=== PATIENT | female | born 1975 | race Hispanic/Latino ===

== ENCOUNTER 2020-04-05 22:41 | Emergency (ER) | payer SELFPAY ==
--- NOTE | 2020-04-05 23:02 | ER ---
Nurse's Notes [facility] Name: Chelsie Zaragoza Age: 45 yrs Sex: Female : 1975 Arrival Date: 04/05/2020 Time: 22:43 Bed Waiting Private MD: Diagnosis: Presentation: 04/05 22:59 Chief complaint: Patient states: I was at a republican a few days ago, and the person who sg hosted the republican said they had a positive panda swab, now I havent been feeling well with N/V and fever and I want to get tested for panda but I want the results back today. Coronavirus screen: Proceed with normal triage. Ebola Screen: Patient negative for fever greater than or equal to 101.5 degrees Fahrenheit, and additional compatible Ebola Virus Disease symptoms Patient denies exposure to infectious person. Patient denies travel to an Ebola-affected area in the 21 days before illness onset. No symptoms or risks identified at this time. Initial Sepsis Screen: Does the patient meet any 2 criteria? No. Patient's initial sepsis screen is negative. Does the patient have a suspected source of infection? No. Patient's initial sepsis screen is negative. Onset of symptoms was April 05, 2020. Care prior to arrival: None. 22:59 Method Of Arrival: Ambulatory :59 Acuity: YANNA 4 sg Historical: - Allergies: 23:01 No Known Allergies; sg - PMHx: 23:01 None; sg - Immunization history:: Adult Immunizations not up to date. - Social history:: Smoking status: Patient denies any tobacco usage or history of. ED Course: :43 Patient arrived in ED. ds1 23:01 Triage completed. sg 23:01 Arm band placed on. sg Administered Medications: No medications were administered Outcome: 23:02 Patient left the ED. sg Signatures: Pawel Phan RN RN Judy Morris ds1 Corrections: (The following items were deleted from the chart) 22:58 Chief complaint: sg sg
== END 2020-04-05 23:02 | disposition left against medical advice (07) ==
LOC: ER 22:41
DX: R50.9 Fever, unspecified (principal); Z53.21 Procedure and treatment not carried out due to patient leaving prior to being seen by health care provider
CPT/HCPCS: 99281

== ENCOUNTER 2020-04-10 06:25 | Emergency (ER) | payer SELFPAY ==
--- OUTSIDE RECORDS SUMMARY | 2020-04-10 06:27 | XMS REPORT | Continuity of Care Document ---
:1975 Author Organization [facility] t Address [address] [place] [address] Care Team Providers Name Role Phone Ninfa Spivey Attending Clinician Problems This patient has no known problems. Allergies, Adverse Reactions, Alerts This patient has no known allergies or adverse reactions. Medications This patient has no known medications. Procedures This patient has no known procedures. Encounters Start End Encounter Admission Attending Care Care Encounter Source Date/Time Date/Time Type Type Clinicians Facility Department ID 2020-04-08 2020-04-08 Letter [facility] [id number] 00:00:00 00:00:00 (Out) Mariama Martinez [id number] [place] [id number] [place] [id number] 2020-04-05 2020-04-06 Emergency [facility] [id number] 23:30:47 02:43:00 Mariama Martinez [id number] [place] [id number] [place] [id number] Results This patient has no known results.
--- OUTSIDE RECORDS SUMMARY | 2020-04-10 06:28 | XMS REPORT | Summary of Care ---
:1975 Author Organization [facility] Address [address] [place] [address] Care Team Providers Name Role Phone Pcp, Patient Does Not Have A Primary Care Provider +1-000-00 0-0000 Reason for Referral Radiology Services (STAT) Status Reason Specialty Diagnoses / Referred By Referred To Procedures Contact Contact New Request Diagnostic Diagnoses Fever in adult SOB (shortness of breath) Vomiting in adult Mariama Madrigla Radiology Procedures XR CHEST 1 VW COVID XR CHEST 1 VW R, EMNP [address] [facility] [id number] [place] [address] Reason for Visit Reason Comments Vomiting exposed to someone with covi d Auth/Cert Status Reason Specialty Diagnoses / Referred By Referred To Procedures Contact Contact Emergency Medicine Ad[facility] Em ergency Dept [address] [place] [address] Fax: Encounter Details Date Type Department Care Team Description 04/05/2020 - Emergency ADC-Emergency Mariama Madrigal R, Fever in a dult (Primary Dx); 04/06/2020 Department EMNP SOB (shortness of breath); [address] [place] [address] Vomiting i n adult; Drive [id number] Exposure to [place]id-19 [place] [address] [place], [place] [phone] Allergies No Known Allergiesdocumented as of this encounter (statuses as of 04/06/2020) Medications Medication Sig Dispensed Refills Start Date End Date Status norgestimate-ethinyl Take 1 tablet by 1 Package 3 09/09/2018 Active estradiol mouth daily. 0.18/0.215/0.25 mg-25 mcg tablet ondansetron (ZOFRAN Take 1 tablet by 20 tablet 0 04/06/2020 Active ODT) 4 mg mouth every 8 disintegrating (eight) hours as tabletIndications: needed for Nausea Vomiting in adult and Vomiting (N/V). documented as of this encounter (statuses as of 04/06/2020) Active Problems Problem Noted Date Obesity (BMI 30.0-34.9) 08/26/2018 Irregular menstrual cycle 08/26/2018 History of diet-controlled diabetes 08/26/2018 documented as of this encounter (statuses as of 04/06/2020) Social History Tobacco Use Types Packs/Day Years Used Date Never Smoker Smokeless Tobacco: Never Used Alcohol Use Drinks/Week oz/Week Comments No Sex Assigned at Date Recorded Not on file Job Start Date Occupation Industry Not on file Not on file Not on file Travel History Travel Start Travel End No recent travel history available. COVID-19 Exposure Response Date Recorded In the last month, have you been in contact with Yes 04/05/2020 11:34 PM CDT someone who was confirmed or suspected to have Coronavirus / COVID-19? documented as of this encounter Last Filed Vital Signs Vital Sign Reading Time Taken Comments Blood Pressure 109/70 04/06/2020 2:00 AM CDT Pulse 95 04/06/2020 2:00 AM CDT Temperature 38.8 C (101.8 F) 04/06/2020 12:44 AM CDT Respiratory Rate 23 04/06/2020 2:00 AM CDT Oxygen Saturation 94% 04/06/2020 2:00 AM CDT Inhaled Oxygen Concentration - - Weight 81.6 kg (180 lb) 04/05/2020 11:35 PM CDT Height 165.1 cm (5' 5") 04/05/2020 11:35 PM CDT Body Mass Index 29.95 04/05/2020 11:35 PM CDT documented in this encounter Discharge Instructions Mariama Liu EMNP - 04/06/2020NO LIFE-THREATENING FINDINGS ON TODAY'S EXAM. SPECIAL INSTRUCTIONS: 1. May alternate tylenol and motrin for pain 2. Increase fluids 3. It is recommended that you subscribe to [employer] so that you get your covid test results. Expect 2-3 days 4. See attached information 5. Return for worsening shortness of breath, persistent vomiting despite nausea medicine or any other concerns FOLLOW-UP RECOMMENDATIONS: RECOMMEND FOLLOW-UP WITH A PRIMARY CARE PROVIDER OR SPECIALIST IN 2-5 DAYS, ESPECIALLY IF NO IMPROVEMENT IN SYMPTOMS. TO FOLLOW-UP WITHIN THE [facility], TRY THESE OPTIONS (CLINIC APPOINTMENTS AVAILABLE ON EGRE-OO-HAAQ BASIS): 1. SCHEDULE AN APPOINTMENT ONLINE AT WWW[facility] 2. OR CALL THE [facility]ESS [facility] AT OR 3. OR CALL YOUR [facility] PHYSICIAN'S OFFICE DIRECTLY IF YOU ARE ALREADY AN ESTABLISHED [facility] PATIENT. OR, YOU MAY FOLLOW-UP WITH A PROVIDER OF YOUR CHOICE, SUCH : 1. A PHYSICIAN OF YOUR CHOICE 2. [facility], . LOCATIONS IN [facility] 3. [facility], [address] [place] [address]; [phone] RETURN TO ER FOR WORSENING OF SYMPTOMS. AttachmentsThe following attachments cannot be sent through Care Everywhere. Coronavirus Disease 2019 (COVID-19) (Malaysian)Coronavirus Disease 2019 (COVID- 19): Prevention (Malaysian)Coronavirus Disease 2019: Caring for Yourself and Others (Malaysian)Febrile Illness, Uncertain Cause (Adult) (Malaysian)Shortness of Breath (Dyspnea) (Malaysian)Vomiting and Diarrhea,Self-Care for (Malaysian) Vomiting or Diarrhea (Adult), Diet for (Malaysian)Ondansetron tablets (Malaysian) documented in this encounter Plan of Treatment Name Type Priority Associated Diagnoses Date/Ti me BLOOD CULTURE SCREEN LAB STAT Fever in ad ult 04/05/2020 11:59 PM SOB (shortness of CDT breath) Vomiting in adult BLOOD CULTURE SCREEN LAB STAT Fever in ad ult 04/05/2020 11:59 PM SOB (shortness of CDT breath) Vomiting in adult CORONAVIRUS COVID-19 LAB STAT Fever in ad ult 04/06/2020 12:04 AM TESTING SOB (shortness of CDT breath) Vomiting in adult XR CHEST 1 VW COVID IMAGING STAT Fever in reji lt 04/06/2020 12:12 AM SOB (shortness of CDT breath) Vomiting in adult Name Type Priority Associated Diagnoses Order S chedule BLOOD CULTURE SCREEN LAB Routine Fever in ad ult ONCE for 1 Occurrences SOB (shortness of starting 0 04/06/2020 breath) until 04/06/2020 Vomiting in adult BLOOD CULTURE SCREEN LAB Routine Fever in ad ult ONCE for 1 Occurrences SOB (shortness of starting 0 04/06/2020 breath) until 04/06/2020 Vomiting in adult Lactic Acid Whole Blood LAB Routine Fever in adult STAT for 1 Occurrences SOB (shortness of starting 0 04/05/2020 breath) Vomiting in adult CORONAVIRUS COVID-19 LAB Routine Fever in ad ult ONCE for 1 Occurrences TESTING SOB (shortness of starting 0 04/06/2020 breath) until 04/06/2020 Vomiting in adult Health Maintenance Due Date Last Done Comments DTaP,Tdap,and Td Vaccines (1 - 1985 Tdap) Depression Screening 1986 Breast Cancer Screening 2014 (MAMMOGRAM) INFLUENZA VACCINE (Season Ended) 2020 PAP SMEAR 08/26/2021 08/26/2018 PNEUMOCOCCAL 0-64 YEARS COMBINED Aged Out No longer eligible based on SERIES patient's age to complete this topic documented as of this encounter Procedures Procedure Name Priority Date/Time Associated Comments Diagnosis POCT TEST MELLO 04/06/2020 12:55 Vomiting in adult Results for this AM CDT procedure are i n the results section. URINALYSIS STAT 04/06/2020 12:05 Fever in adult Results for this AM CDT SOB (shortness of procedure are in breath) the results Vomiting in adult section. CBC WITH DIFFERENTIAL STAT 04/05/2020 11:58 Fever in adult Results for this PM CDT SOB (shortness of procedure are in breath) the results Vomiting in adult section. N-TERMINAL PRO-BNP STAT 04/05/2020 11:58 Fever in reji lt Results for this PM CDT SOB (shortness of procedure are in breath) the results Vomiting in adult section. COMP. METABOLIC PANEL STAT 04/05/2020 11:58 Fever in adult Results for this (73650) PM CDT SOB (shortness of procedure are in breath) the results Vomiting in adult section. LIPASE STAT 04/05/2020 11:58 Fever in adult Results for this PM CDT SOB (shortness of procedure are in breath) the results Vomiting in adult section. LACTIC ACID WHOLE STAT 04/05/2020 11:57 Fever in adul t Results for this BLOOD PM CDT SOB (shortness of procedure are in breath) the results Vomiting in adult section. ASSIGNMENT OF Routine 04/05/2020 11:23 BENEFITS PM CDT NOTICE OF PRIVACY Routine 04/05/2020 11:23 PRACTICES PM CDT CONSENT/REFUSAL FOR Routine 04/05/2020 11:23 DIAGNOSIS AND PM CDT TREATMENT documented in this encounter Results POCT TEST (04/06/2020 12:55 AM CDT) Pathologist Sig nature POCT PREG Negative On board controls acceptable Present with C Line POCT PREG LOT # [id number] POCT PREG TEST DATE 07/10/2021 Specimen Urine - URINE, CLEAN CATCH URINALYSIS (04/06/2020 12:05 AM CDT) Pathologist Sig nature APPEARANCE Cloudy (A) Clear [facility] COLOR Benita (A) Yellow [facility] PH 7.0 4.8 - 8.0 [facility] SP GRAVITY 1.018 1.003 - 1.030 [facility] GLU U QUAL Normal Normal [facility] BLOOD Negative Negative [facility] KETONES Negative Negative [facility] PROTEIN Negative Negative [facility] UROBILIN 4.0 mg/dL (A) Normal [facility] BILIRUBIN Negative Negative [facility] NITRITE Negative Negative [facility] LEUK PATRICIA Negative Negative [facility] RBC/HPF 2 0 - 3 HPF [facility] WBC/HPF 2 0 - 5 HPF [facility] BACTERIA Many (A) Negative [facility] MUCOUS Slight (A) Negative LPF [facility] SQ EPITH 17 HPF [facility] Specimen Urine - URINE, CLEAN CATCH Performing Organization Address City/State/Zipcode Phone Number [facility] CLIA: [id number], [address] [place], [place] [address] N-TERMINAL PRO-BNP (04/05/2020 11:58 PM CDT) Pathologist Sig nature NT-proBNP 55 <=125 pg/mL [facility] Specimen Blood - ARM, LEFT Narrative Performed At Biotin has been reported to cause a negative [facility] bias, interpret results relative to patient's use of biotin. Performing Organization Address City/State/Zipcode Phone Number [facility] CLIA: [id number], [address] [place], [place] [address] LIPASE (04/05/2020 11:58 PM CDT) Pathologist Sig nature LIPASE 60 0 - 220 U/L [facility] Specimen Blood - ARM, LEFT Performing Organization Address [facility] Phone Number [facility] CLIA: [id number], [address] [place], [place] [address] COMP. METABOLIC PANEL ([id number]) (04/05/2020 11:58 PM CDT) Pathologist Sig [facility] NA 134 (L) 135 - 145 [facility] mmol/L [facility] K 4.1 3.5 - 5.0 [facility] mmol/L [facility] CL 101 98 - 108 mmol/L [facility] CO2 TOTAL 24 23 - 31 mmol/L [facility] AGAP 9 2 - 16 [facility] BUN 8 7 - 23 mg/dL [facility] GLUCOSE 245 (H) 70 - 110 mg/dL [facility] CREATININE 0.66 0.50 - 1.04 [facility] mg/dL [facility] TOTAL BILI 0.9 0.1 - 1.1 mg/dL [facility] CALCIUM 9.4 8.6 - 10.6 [facility] mg/dL [facility] T PROTEIN 8.3 (H) 6.3 - 8.2 g/dL [facility] ALBUMIN 4.5 3.5 - 5.0 g/dL [facility] ALK PHOS 115 34 - 122 U/L [facility] ALTv 31 5 - 35 U/L [facility] AST(SGOT) 30 13 - 40 U/L [facility] eGFR Calculation 96.4 mL/min/1.73m2 [facility] ([facility] LAB[facility] Venezuelan) eGFR Calculation 116.9 mL/min/1.73m2 [facility] () [facility] Specimen Blood - ARM, LEFT Narrative Performed At Association of Glomerular Filtration Rate (GFR) [facility] and Staging of Kidney Disease* + + +- + | GFR (mL/min/1.73 m2) | With Kidney Damage | Without Kidney Damage + + +- + | >90 | Stage one | Normal + + +- + | 60-89 | Stage two | Decreased GFR + + +- + | 30-59 | Stage three | Stage three + + +- + | 15-29 | Stage four | Stage four + + +- + | <15 (or dialysis) | Stage five | Stage five + + +- + *Each stage assumes the associated GFR level has been in effect for at least three months. Stages 1 to 5, with or without kidney disease, indicate chronic kidney disease. Notes: Determination of stages one and two (with eGFR >59mL/min/1.73 m2) requires estimation of kidney damage for at least three months as defined by structural or functional abnormalities of the kidney, manifested by either: Pathological abnormalities or Markers of kidney damage (including abnormalities in the composition of the blood or urine or abnormalities in imaging tests). Performing Organization Address City/State/Zipcode Phone Number [facility] CLIA: [id number], [address] [place] [address] CBC WITH DIFFERENTIAL (04/05/2020 11:58 PM CDT) [facility] nature WBC 6.08 4.30 - 11.10 [facility] 10*3/L [facility] RBC 4.54 3.93 - 5.25 [facility] 10*6/L [facility] HGB 13.0 11.6 - 15.0 [facility] g/dL [facility] HCT 38.4 35.7 - 45.2 % [facility] MCV 84.6 80.6 - 95.5 fL [facility] MCH 28.6 25.9 - 32.8 pg [facility] MCHC 33.9 31.6 - 35.1 [facility] g/dL [facility] RDW-SD 39.8 39.0 - 49.9 fL [facility] RDW-CV 12.8 12.0 - 15.5 % [facility] PLT 192 166 - 358 [facility] 10*3/L [facility] MPV 11.8 9.5 - 12.9 fL [facility] NRBC/100 WBC 0.0 0.0 - 10.0 /100 [facility] WBCs [facility] NRBC x10^3 <0.01 10*3/L [facility] GRAN MAT (NEUT) % 81.5 % [facility] IMM GRAN % 0.80 % [facility] LYMPH % 7.7 % [facility] MONO % 7.2 % [facility] EOS % 2.3 % [facility] BASO % 0.5 % [facility] GRAN MAT x10^3(ANC) 4.95 1.88 - 7.09 [facility] 10*3/uL HOSPITAL LABORATORY IMM GRAN x10^3 0.05 0.00 - 0.06 [facility] 10*3/uL HOSPITAL LABORATORY LYMPH x10^3 0.47 (L) 1.32 - 3.29 [facility] 10*3/uL HOSPITAL LABORATORY MONO x10^3 0.44 0.33 - 0.92 [facility] 10*3/uL HOSPITAL LABORATORY EOS x10^3 0.14 0.03 - 0.39 [facility] 10*3/uL HOSPITAL LABORATORY BASO x10^3 0.03 0.01 - 0.07 [facility] 10*3/uL [facility] Specimen Blood - ARM, LEFT Performing Organization Address [facility]/Zipcode Phone Number [facility] CLIA: [id number], [address] [place] [address] Lactic Acid Whole Blood (04/05/2020 11:57 PM CDT) [facility] LACTIC ACID 1.78 0.30 - 2.60 mmol/L [facility] Specimen Blood - ARM, LEFT Performing Organization Address [facility]/Zipcode Phone Number [facility] CLIA: [id number], [address] [place] [address] documented in this encounter Visit Diagnoses Diagnosis Fever in adult - Primary SOB (shortness of breath) Shortness of breath Vomiting in adult Vomiting alone Exposure to Covid-19 Virus documented in this encounter Administered Medications Medication Order MAR Action Action Date Dose Rate Site ibuprofen (IBU) tablet 600 mg Given 04/05/2020 11:44 PM CDT 600 mg 600 mg, Oral, ONCE, 1 dose, 04/06/20 at 0045, MELLO NaCl 0.9% (NS) bolus infusion New Bag 04/06/2020 12:00 AM CDT 1,000 mL 999 mL/hr 1,000 mL at 999 mL/hr, 1,000 mL, IV Infusion, ONCE, 1 dose, 04/06/20 at 0000, MELLO NaCl 0.9% (NS) bolus infusion New Bag 04/06/2020 1:15 AM CDT 1,000 mL 999 mL/hr 1,000 mL at 999 mL/hr, 1,000 mL, IV Infusion, ONCE, 1 dose, 04/06/20 at 0100, MELLO ondansetron (ZOFRAN (PF)) injection 4 mg Given 04/06/2020 1:15 AM CDT 4 mg 4 mg, Slow IV Push, ONCE, 1 dose, 04/06/20 at 0200, MELLO documented in this encounter
--- OUTSIDE RECORDS SUMMARY | 2020-04-10 06:28 | XMS REPORT | Summary of Care ---
:1975 Author Organization [facility] Address [address] [place] [address] Care Team Providers Name Role Phone Pcp, Patient Does Not Have A Primary Care Provider +1-000-00 0-0000 Encounter Details Date Type Department Care Team Description 04/08/2020 Letter (Out) ADC-Emergency Depart ment Mariama Madrigal EMNP [address] [facility] [facility] [id number] [place] [address] [place] [address] [phone] Allergies No Known Allergiesdocumented as of this encounter (statuses as of 04/08/2020) Medications Medication Sig Dispensed Refills Start Date [...] as of this encounter (statuses as of 04/08/2020) Active Problems Problem Noted Date Obesity (BMI 30.0-34.9) 08/26/2018 Irregular menstrual cycle 08/26/2018 History of diet-controlled diabetes 08/26/2018 documented as of this encounter (statuses as of 04/08/2020) Social History Tobacco Use Types Packs/Day Years [...] of this encounter Last Filed Vital Signs Not on filedocumented in this encounter Plan of Treatment Health Maintenance Due Date Last Done Comments DTaP,Tdap,and Td Vaccines (1 - 1985 Tdap) Depression Screening 1986 Breast Cancer Screening 2014 (MAMMOGRAM) INFLUENZA VACCINE (Season Ended) 2020 PAP SMEAR 08/26/2021 08/26/2018 PNEUMOCOCCAL 0-64 YEARS COMBINED Aged Out No longer eligible based on SERIES patient's age to complete this topic documented as of this encounter Results Not on filedocumented in this encounter Insurance Payer Benefit Plan Subscriber ID Effective Phone Address Typ e / Group Dates [employer] [place] [id number] xxxxxxxxx 2016-Prese [phone] Medicaid WOMEN [address] [place] [address] [facility] [place] xxxxxxxxx 2018-Pres [phone] [address] [place] X Medicaid WOMEN WOMEN [address] [place] [address] documented as of this encounter
[2020-04-10] MEDS ORDERED: PROMETHAZINE INJ 25 MG/ML AMP ONE ×2 (07:19→10:37)
[2020-04-10] MEDS ORDERED: NA CHLORIDE 0.9% 1,000 ML ONE (07:20)
[2020-04-10] MEDS ORDERED: FAMOTIDINE 20 MG/2 ML VIAL IV ONE (07:20)
[2020-04-10 07:50] LABS: Absolute Lymphocytes (CBC) 0.7 K/uL (0.7-4.9); Basophils % 0.6 % (0-1.3); Hematocrit 41.8 % (36.0-45.0); Lymphocytes % 24.2 % (15.3-44.8); MPV 9.9 fL (7.6-11.3); RBC Red Blood Cell Count 4.96 M/uL (3.86-4.86)
[2020-04-10 08:03] LABS: Albumin 3.8 g/dL (3.4-5.0); Bilirubin Direct 0.2 mg/dL (0-0.2); Bilirubin Total 0.6 mg/dL (0.2-1.0); Potassium 3.7 mmol/L (3.5-5.1); Protein, Total 8.5 g/dL (6.4-8.2)
--- NOTE | 2020-04-10 08:23 | RAD REPORT ---
EXAM DESCRIPTION: RAD - Chest Single View - 04/10/2020 7:53 am CLINICAL HISTORY: Cough;Fever Chest pain. COMPARISON: Abdomen Pelvis W Contrast dated 04/10/2020 FINDINGS: Portable technique limits examination quality. Small opacity seen in left lung base suspicious for pneumonia. The lungs are otherwise clear. The hea rt is normal in size. No displaced fractures. IMPRESSION: Developing left base pneumonia suspected.
[2020-04-10] MEDS ORDERED: ACETAMINOPHEN 325 MG TABLET ONE (08:26)
[2020-04-10] MEDS ORDERED: ACETAMINOPHEN 500 MG TAB ONE (08:28)
--- NOTE | 2020-04-10 08:31 | RAD REPORT ---
EXAM DESCRIPTION: CTAbdomen Pelvis W Contrast - 04/10/2020 8:01 am CLINICAL HISTORY: Abdominal pain. Abd pain;Nausea / vomiting COMPARISON: No comparisons TECHNIQUE: Biphasic CT imaging of the abdomen and pelvis was performed with 100 ml non-ionic IV cont rast. All CT scans are performed using dose optimization technique as appropriate and may include automated exposure control or mA/KV adjustment according to patient size. FINDINGS: Opacities present in the posterior left lung base compatible with pneumonia. The liver, spleen, pancreas, adrenal glands and kidneys are within normal limits. Cholecystectomy cli ps. No bowel obstruction, free air, free fluid or abscess. The appendix is normal. No evidence of signi ficant lymphadenopathy. No suspicious bony findings. IMPRESSION: Posterior left lung base pneumonia.
[2020-04-10 08:39] LABS: Urine Blood NEGATIVE (NEG); Urine Glucose NEGATIVE (NEG); Urine Protein NEGATIVE (NEG); Urine Specific Gravity <1.005 (1.005-1.030); Urine pH 5.5 (5.0-7.0)
[2020-04-10] MEDS ORDERED: CEFTRIAXONE/SWI 1gm 1 GM/10 ML SYR ONE (09:03)
[2020-04-10] MEDS ORDERED: AZITHROMYCIN IV 500 MG in NA CHLORIDE 0.9% 250 ML IVPB ONE (09:15)
--- NOTE | 2020-04-10 09:49 | EDPHYS ---
Physician Documentation [facility] Name: Chelsie Zaragoza Age: 45 yrs Sex: Female : 1975 Arrival Date: 04/10/2020 Time: 06:26 Bed 6 Private MD: ED Physician Jorge Kim HPI: 04/10 06:59 This 45 yrs old Female presents to ER via Ambulatory with complaints of cp Nausea/Vomiting, Fever. 06:59 The patient presents to the emergency department with nausea, that is moderate, cp vomiting, that is intermittent, abdominal pain, of the abdomen diffusely. Onset: The symptoms/episode began/occurred 5 day(s) ago. Possible causes: unknown. 06:59 Associated signs and symptoms: Pertinent positives: abdominal pain, anorexia, fever, cp nausea, vomiting, Pertinent negatives: constipation, diarrhea, GI bleeding. Severity of symptoms: in the emergency department the symptoms are unchanged despite home interventions. 07:00 Patient reports being seen at [facility] 5 days ago and being tested for COVID-19. Results of cp COVID testing returned negative 2 days ago. 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 - Social history:: Smoking status: Patient denies any tobacco usage or history of. ROS: 07:05 Eyes: Negative for injury, pain, redness, and discharge. cp 07:05 Constitutional: Positive for fever, poor PO intake. 07:05 ENT: Negative for ear pain, sore throat, difficulty swallowing, difficulty handling secretions. 07:05 Cardiovascular: Negative for chest pain, palpitations. 07:05 Respiratory: Positive for cough, Negative for shortness of breath, wheezing. 07:05 Abdomen/GI: Positive for abdominal pain, nausea and vomiting, anorexia, Negative for diarrhea, constipation. 07:05 Back: Positive for pain at rest, pain with movement. 07:05 : Negative for urinary symptoms. 07:05 Skin: Negative for rash. 07:05 Neuro: Negative for altered mental status, headache, weakness. 07:05 All other systems are negative. Exam: 07:12 Constitutional: The patient appears in no acute distress, alert, awake, cp non-diaphoretic, non-toxic, well developed, well nourished, febrile. 07:12 Head/Face: Normocephalic, atraumatic. cp 07:12 Eyes: Periorbital structures: appear normal, Conjunctiva: normal, no exudate, no injection, Sclera: no appreciated abnormality, Lids and lashes: appear normal, bilaterally. 07:12 ENT: External ear(s): are unremarkable, Ear canal(s): are normal, clear, TM's: bulging, is not appreciated, bilaterally, dullness, bilaterally, erythema, is not appreciated, bilaterally, Nose: is normal, Mouth: Lips: moist, Oral mucosa: moist, Posterior pharynx: Airway: no evidence of obstruction, patent, Tonsils: no enlargement, no exudate, swelling, is not appreciated, erythema, that is mild, exudate, is not appreciated. 07:12 Neck: ROM/movement: is normal, is supple, without pain, no range of motions limitations, no meningismus. 07:12 Chest/axilla: Inspection: normal, Palpation: is normal, no crepitus, no tenderness. 07:12 Cardiovascular: Rate: tachycardic, Rhythm: regular, Edema: is not appreciated, JVD: is not appreciated. 07:12 Respiratory: the patient does not display signs of respiratory distress, Respirations: normal, no use of accessory muscles, no retractions, no splinting, no tachypnea, labored breathing, is not present, Breath sounds: decreased breath sounds, are not appreciated, stridor, is not appreciated, wheezing: is not appreciated. 07:12 Abdomen/GI: Inspection: abdomen appears normal, Bowel sounds: active, all quadrants, Palpation: soft, in all quadrants, mild abdominal tenderness, in the right upper quadrant and right lower quadrant, rebound tenderness, is not appreciated, voluntary guarding, is elicited in the right upper quadrant and right lower quadrant. 07:12 Back: ROM is normal, CVA tenderness, that is mild, is noted bilaterally. 07:12 Skin: no rash present. 07:12 Neuro: Orientation: to person, place \T\ time. Mentation: is normal, Motor: moves all fours, strength is normal. Vital Signs: 06:42 BP 129 / 105; Pulse 116; Resp 18; Temp 102(O); Pulse Ox 97% on R/A; Weight 81.65 kg lp1 (R); Height 5 ft. 5 in. (165.10 cm); 07:38 BP 122 / 89; Pulse 111; Resp 19 S; Pulse Ox 94% on R/A; jl7 08:00 BP 124 / 81; Pulse 105; Resp 17 S; Pulse Ox 98% on R/A; jl7 08:31 BP 102 / 67; Pulse 104; Resp 15 S; Pulse Ox 97% on R/A; jl7 09:40 BP 108 / 82; Pulse 101; Resp 19 S; Temp 100.2(O); Pulse Ox 93% on R/A; jl7 10:38 BP 107 / 77; Pulse 95; Resp 16; Pulse Ox 95% ; jl7 06:42 Body Mass Index 29.95 (81.65 kg, 165.10 cm) lp1 MDM: 06:46 Patient medically screened. cp 07:10 Differential diagnosis: Nonspecific abd pain, gastritis, cholecystitis, appendicitis, cp diverticulitis, viral gastroenteritis, gastroenteritis, dehydration, influenza, pneumonia, sepsis. 09:47 Data reviewed: vital signs, nurses notes, lab test result(s), radiologic studies, CT cp scan, plain films, and as a result, I will discharge patient. 09:47 Counseling: I had a detailed discussion with the patient and/or guardian regarding: the cp historical points, exam findings, and any diagnostic results supporting the discharge/admit diagnosis, lab results, radiology results, the need for outpatient follow up, a family practitioner, to return to the emergency department if symptoms worsen or persist or if there are any questions or concerns that arise at home. Response to treatment: the patient's symptoms have markedly improved after treatment, patient is well hydrated. and as a result, I will discharge patient. ED course: VSS. Nausea improved and fever and vomiting resolved. Patient observed tolerating po fluids. Will discharge to home for continued monitoring. 04/10 06:58 Order name: Influenza Screen (a \T\ B) cp 04/10 06:58 Order name: Strep; Complete Time: 08:48 cp 04/10 06:58 Order name: Urine Microscopic Only cp 04/10 06:58 Order name: Basic Metabolic Panel; Complete Time: 08:18 cp 04/10 08:49 Interpretation: Normal except: GLUC 221; GFR 67. cp 04/10 06:58 Order name: CBC with Diff; Complete Time: 08:02 cp 04/10 08:02 Interpretation: Normal except: WBC 3.0; RBC 4.96. cp 04/10 06:58 Order name: Hepatic Function; Complete Time: 08:18 cp 04/10 09:17 Interpretation: Normal except: AST 42; TP 8.5; GLOB 4.7; A/G 0.8. cp 04/10 06:58 Order name: Lipase; Complete Time: 08:18 cp 04/10 06:58 Order name: Lactate; Complete Time: 08:18 cp 04/10 06:58 Order name: Procalcitonin; Complete Time: 08:48 cp 04/10 06:58 Order name: Blood Culture Adult (2) cp 04/10 07:52 Order name: CREATININE WHOLE BLOOD; Complete Time: 08:02 EDMS 04/10 08:29 Order name: Urine Dipstick--Ancillary (enter results); Complete Time: 08:48 em1 04/10 08:49 Interpretation: Normal except: U NIT POSITIVE. cp 04/10 08:49 Order name: Throat Culture EDIN 04/10 09:54 Order name: Urine Culture EDIN 04/10 06:58 Order name: Urine Dipstick-Ancillary (obtain specimen); Complete Time: 08:29 cp 04/10 06:58 Order name: Urine Test (obtain specimen); Complete Time: 08:28 cp 04/10 06:58 Order name: IV Saline Lock; Complete Time: 07:50 cp 04/10 06:58 Order name: Labs collected and sent; Complete Time: 07:50 cp 04/10 06:58 Order name: XRAY Chest (1 view); Complete Time: 08:48 cp 04/10 06:58 Order name: CT Abd/Pelvis - IV Contrast Only; Complete Time: 08:48 cp 04/10 08:51 Order name: PO challenge; Complete Time: 08:51 cp Administered Medications: 07:45 Drug: NS 0.9% 1000 ml Route: IV; Rate: 1 bolus; Site: left antecubital; jl7 09:00 Follow up: Response: No adverse reaction; IV Status: Completed infusion; IV Intake: jl7 1000ml 07:45 Drug: Phenergan 12.5 mg Route: IVP; Site: left antecubital; jl7 08:00 Follow up: Response: No adverse reaction; Nausea is decreased jl7 07:50 Drug: Pepcid 20 mg Route: IVP; Site: left antecubital; jl7 08:29 Follow up: Response: No adverse reaction jl7 08:29 Drug: Tylenol 1000 mg Route: PO; jl7 09:29 Follow up: Response: No adverse reaction; Temperature is decreased jl7 08:51 Not Given (wrong pharmacy order): Rocephin - (cefTRIAXone) 1 grams IVPB once over 30 jl7 mins; (mix in 50 mL NS) 09:15 Drug: Rocephin 1 grams Route: IV; Rate: calculated rate; Site: left antecubital; jl7 09:18 Follow up: Response: No adverse reaction; IV Status: Completed infusion jl7 09:20 Drug: Zithromax 500 mg Route: IVPB; Infused Over: 1 hrs; Site: left antecubital; jl7 10:20 Follow up: Response: No adverse reaction; IV Status: Completed infusion jl7 10:27 Drug: Phenergan 12.5 mg Route: IVP; Site: left antecubital; jl7 10:41 Follow up: Response: No adverse reaction; Medication administered at discharge. jl7 Disposition: 15:53 Co-signature as Attending Physician, Jorge Kim MD I agree with the assessment and kdr plan of care. Disposition: 04/10/20 09:48 Discharged to Home. Impression: Pneumonia due to other specified bacteria, Urinary tract infection, site not specified. - Condition is Stable. - Discharge Instructions: Community-Acquired Pneumonia, Adult, Urinary Tract Infection, Adult. - Prescriptions for Augmentin 875- 125 mg Oral Tablet - take 1 tablet by ORAL route every 12 hours for 10 days; 20 tablet. Zithromax Z- Ramírez 250 mg Oral Tablet - take 1 tablet by ORAL route as directed for 5 days Day 1 - take two (2) tablets one time. Day 2, 3, 4 , 5 take one (1) tablet once daily.; 6 tablet. promethazine 25 mg Oral Tablet - take 1 tablet by ORAL route every 6 hours As needed; 20 tablet. - Medication Reconciliation Form, Thank You Letter, Antibiotic Education, Prescription Opioid Use, Work release form form. - Follow up: Private Physician; When: 2 - 3 days; Reason: Recheck today's complaints. - Problem is new. - Symptoms have improved. Signatures: Dispatcher [employer] EDMS Jorge Kim MD MD kdr Pena, Laura RN RN lp1 Adrian Piper PA PA cp Leal, Jahala RN RN jl7 Corrections: (The following items were deleted from the chart) 10:41 09:48 04/10/2020 09:48 Discharged to Home. Impression: Pneumonia due to other specified jl7 bacteria; Urinary tract infection, site not specified. Condition is Stable. Forms are Medication Reconciliation Form, Thank You Letter, Antibiotic Education, Prescription Opioid Use. Follow up: Private Physician; When: 2 - 3 days; Reason: Recheck today's complaints. Problem is new. Symptoms have improved. cp
--- NOTE | 2020-04-10 09:49 | ER ---
Nurse's Notes [facility] Name: Chelsie Zaragoza Age: 45 yrs Sex: Female : 1975 Arrival Date: 04/10/2020 Time: 06:26 Bed 6 Private MD: Diagnosis: Pneumonia due to other specified bacteria;Urinary tract infection, site not specified Presentation: 04/10 06:42 Chief complaint: Patient states: Nausea, vomiting, fever that began Wednesday; states seen lp1 at [facility], tested COVID negative; No nausea relief with Zofran prescribed; Last taken Tylenol 500 mg PO x2 at 0400 for fever. Coronavirus screen: Patient denies a cough. Patient denies shortness of breath or difficulty breathing. Patient reports a measured and/or subjective temperature greater than 100.4F. Patient denies travel on a cruise ship or to a country the [facility] currently lists as an affected area. Patient reports contact with known and/or suspected case of COVID-19. Prior COVID test collected on: COVID tested Wednesday04/05/20 results are located within the EHR/EMR. Ebola Screen: No symptoms or risks identified at this time. Initial Sepsis Screen: Does the patient meet any 2 criteria? Temp <36.0*C (96.8*F)) or > 38.3*C (100.9*F). HR > 90 bpm. Yes Does the patient have a suspected source of infection? Yes: Other: unknown source. Risk Assessment: Do you want to hurt yourself or someone else? Patient reports no desire to harm self or others. Onset of symptoms was April 05, 2020. 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 - Social history:: Smoking status: Patient denies any tobacco usage or history of. Screenin:49 Abuse screen: Denies threats or abuse. Denies injuries from another. Nutritional lp1 screening: No deficits noted. Tuberculosis screening: No symptoms or risk factors identified. 07:51 Fall Risk IV access (20 points). Total Brand Fall Scale indicates No Risk (0-24 pts). jl7 Assessment: 07:30 General: Appears in no apparent distress. uncomfortable, ill, Behavior is calm, jl7 cooperative, appropriate for age. Pain: Complains of pain in abdomen diffusely. Neuro: Level of Consciousness is awake, alert, obeys commands, Oriented to person, place, time, situation. Cardiovascular: Patient's skin is warm and dry. Respiratory: Reports shortness of breath at rest cough that is non-productive, Airway is patent Respiratory effort is even, unlabored, Respiratory pattern is regular, symmetrical. GI: Abdomen is non-distended, Reports nausea, vomiting. : No signs and/or symptoms were reported regarding the genitourinary system. Derm: Skin is pink, warm \T\ dry. 07:54 Reassessment: pt actively vomiting, unable to provide urine sample, unable to obtain jl7 strep swab at this time. Administered medications as ordered, pt transported to CT via stretcher, will obtain the rest of labs on return. 08:00 Reassessment: Patient appears in no apparent distress at this time. Patient is alert, jl7 oriented x 3, equal unlabored respirations, skin warm/dry/pink. reports decreased nausea at this time. 09:40 Reassessment: Pt laying in bed with eyes closed, respirations even and unlabored, no jl7 signs of distress noted at this time. 09:53 Reassessment: pt will be discharged once medications are done infusing. jl7 10:25 Reassessment: Pt c/o increased nausea, ERP notified, see MAR for orders. jl7 Vital Signs: 06:42 BP 129 / 105; Pulse 116; Resp 18; Temp 102(O); Pulse Ox 97% on R/A; Weight 81.65 kg lp1 (R); Height 5 ft. 5 in. (165.10 cm); 07:38 BP 122 / 89; Pulse 111; Resp 19 S; Pulse Ox 94% on R/A; jl7 08:00 BP 124 / 81; Pulse 105; Resp 17 S; Pulse Ox 98% on R/A; jl7 08:31 BP 102 / 67; Pulse 104; Resp 15 S; Pulse Ox 97% on R/A; jl7 09:40 BP 108 / 82; Pulse 101; Resp 19 S; Temp 100.2(O); Pulse Ox 93% on R/A; jl7 10:38 BP 107 / 77; Pulse 95; Resp 16; Pulse Ox 95% ; jl7 06:42 Body Mass Index 29.95 (81.65 kg, 165.10 cm) lp1 ED Course: 06:26 Patient arrived in ED. ds1 06:42 Adrian Piper PA is PHCP. cp 06:42 Tyson Powell MD is Attending Physician. cp 06:47 Triage completed. lp1 06:47 Arm band placed on. lp1 07:07 Henok Garces RN is Primary Nurse. jl7 07:40 Initial lab(s) drawn, by me, sent to lab. First set of blood cultures drawn by me. jl7 07:45 Inserted saline lock: 20 gauge in left antecubital area, using aseptic technique. Blood jl7 collected. 07:45 Second set of blood cultures drawn by me. jl7 07:51 Patient has correct armband on for positive identification. Placed in gown. Bed in low jl7 position. Call light in reach. Side rails up X 1. Pulse ox on. NIBP on. 07:53 XRAY Chest (1 view) In Process Unspecified. EDMS 08:01 CT Abd/Pelvis - IV Contrast Only In Process Unspecified. EDMS 08:31 Urine collected: clean catch specimen, clear, Strep swab sent to lab. jl7 09:07 Jorge Kim MD is Attending Physician. cp 10:38 No provider procedures requiring assistance completed. IV discontinued, intact, jl7 bleeding controlled, No redness/swelling at site. Pressure dressing applied. 10:41 Throat Culture Sent. jl7 Administered Medications: 07:45 Drug: NS 0.9% 1000 ml Route: IV; Rate: 1 bolus; Site: left antecubital; jl7 09:00 Follow up: Response: No adverse reaction; IV Status: Completed infusion; IV Intake: jl7 1000ml 07:45 Drug: Phenergan 12.5 mg Route: IVP; Site: left antecubital; jl7 08:00 Follow up: Response: No adverse reaction; Nausea is decreased jl7 07:50 Drug: Pepcid 20 mg Route: IVP; Site: left antecubital; jl7 08:29 Follow up: Response: No adverse reaction 7 08:29 Drug: Tylenol 1000 mg Route: PO; jl7 09:29 Follow up: Response: No adverse reaction; Temperature is decreased 7 08:51 Not Given (wrong pharmacy order): Rocephin - (cefTRIAXone) 1 grams IVPB once over 30 jl7 mins; (mix in 50 mL NS) 09:15 Drug: Rocephin 1 grams Route: IV; Rate: calculated rate; Site: left antecubital; jl7 09:18 Follow up: Response: No adverse reaction; IV Status: Completed infusion jl7 09:20 Drug: Zithromax 500 mg Route: IVPB; Infused Over: 1 hrs; Site: left antecubital; jl7 10:20 Follow up: Response: No adverse reaction; IV Status: Completed infusion jl7 10:27 Drug: Phenergan 12.5 mg Route: IVP; Site: left antecubital; jl7 10:41 Follow up: Response: No adverse reaction; Medication administered at discharge. 7 Intake: 09:00 IV: 1000ml; Total: 1000ml. 7 Outcome: 09:48 Discharge ordered by . cp 10:38 Discharged to home ambulatory. jl7 10:38 Condition: stable 10:38 Discharge instructions given to patient, Instructed on discharge instructions, follow up and referral plans. medication usage, Demonstrated understanding of instructions, follow-up care, medications, Prescriptions given X 3. 10:41 Patient left the ED. 7 Signatures: [facility] Judy Sweet ds1 Sandra Waller RN RN lp1 Adrain Piper PA PA Henok Myers RN RN jl7 Corrections: (The following items were deleted from the chart) 07:51 07:50 NS 0.9% 1000 ml IV at 1 bolus in left antecubital jl7 jl7
[2020-04-10 09:52] LABS: Urine Bacteria 20-50 /HPF (<20); Urine Culture Reflex Order REFLEXED; Urine RBC <5 /HPF (NONE SEEN)
[2020-04-10 11:01] VITALS: TEMP 100.2
[2020-04-10 11:02] VITALS: BP 107/77; O2SAT 95
== END 2020-04-10 10:41 | disposition home or self-care (01) ==
LOC: ER 06:25
DX: J15.8 Pneumonia due to other specified bacteria (principal); N39.0 Urinary tract infection, site not specified; E11.9 Type 2 diabetes mellitus without complications
CPT/HCPCS: 36415; 71045; 74177; 80048; 80076; 81003; 81015; 82565; 83605; 83690; 84145; 85025; 87040; 87070; 87077; 87081; 87086; 87088; 87186; 87804; 96361; 96365; 96375; 99284; J0456; J0696; J2550; J7030; Q9967

== ENCOUNTER 2020-04-13 02:03 | Emergency (ER) | payer SELFPAY ==
--- OUTSIDE RECORDS SUMMARY | 2020-04-13 02:05 | XMS REPORT | Continuity of Care Document ---
:1975 Author Organization [facility] t Address [address] [place] [address] Care Team Providers Name Role Phone Ninfa [...] Clinicians Facility Department ID 2020-04-08 2020-04-08 Letter [facility] [id number] 00:00:00 00:00:00 (Out) Mariama Martinez [id number] [place] [id number] [place] [id number] 2020-04-05 2020-04-06 Emergency [facility] [id number] 23:30:47 02:43:00 Mariama Martinez [id number] [place] [id number] [place] [id number] Results This patient has no known results.
[2020-04-13] MEDS ORDERED: NA CHLORIDE 0.9% 500 ML ONE (02:37)
[2020-04-13] MEDS ORDERED: NA CHLORIDE 0.9% 2,000 ML ONE (02:37)
[2020-04-13 02:44] LABS: Absolute Lymphocytes (CBC) 0.5 K/uL (0.7-4.9); Basophils % 0.5 % (0-1.3); Hematocrit 39.2 % (36.0-45.0); Lymphocytes % 17.3 % (15.3-44.8); MPV 10.1 fL (7.6-11.3); RBC Red Blood Cell Count 4.65 M/uL (3.86-4.86)
[2020-04-13 02:50] LABS: Protime INR 1.24
[2020-04-13 03:11] LABS: ALT/SGPT 45 U/L (12-78); AST/SGOT 42 U/L (15-37); Albumin 3.2 g/dL (3.4-5.0); Alkaline Phosphatase 82 U/L (45-117); BUN Blood Urea Nitrogen 11 mg/dL (7-18); Bicarbonate 24 mmol/L (21-32); Bilirubin Direct 0.2 mg/dL (0-0.2); Bilirubin Total 0.5 mg/dL (0.2-1.0); Ferritin 132.1 ng/mL (8-388); Glucose Level 276 mg/dL (74-106); Lipase 157 U/L (73-393); Potassium 3.4 mmol/L (3.5-5.1); Protein, Total 7.9 g/dL (6.4-8.2); Sodium Level 135 mmol/L (136-145); Troponin (Emerg Dept Use Only) < 0.02 ng/mL (0.0-0.045)
[2020-04-13] MEDS ORDERED: CEFTRIAXONE/SWI 1gm 1 GM/10 ML SYR ONE (03:51)
[2020-04-13] MEDS ORDERED: AZITHROMYCIN 250 MG TAB ONE (03:54)
[2020-04-13] MEDS ORDERED: ONDANSETRON 4 MG/2 ML VIAL ONE (03:59)
[2020-04-13 04:27] LABS: Arterial Blood Carboxyhemoglob 1.2 % (0-1.5); Blood Gas Oxyhemoglobin 92.2 % (94-97); Blood O2 Saturation 94.1 % (92-98.5)
[2020-04-13 05:24] LABS: Urine Blood TRACE (NEG); Urine Glucose 2+ (NEG); Urine Protein NEGATIVE (NEG); Urine Specific Gravity 1.015 (1.005-1.030); Urine pH 5.5 (5.0-7.0)
--- NOTE | 2020-04-13 05:26 | EDPHYS ---
Physician Documentation [facility] Name: Chelsie Zaragoza Age: 45 yrs Sex: Female : 1975 Arrival Date: 04/13/2020 Time: 02:14 Bed 6 Private MD: ED Physician Patrick Luna HPI: 04/13 03:54 This 45 yrs old Female presents to ER via EMS with complaints of Shortness Of tw4 Breath, Vomiting. 03:54 The patient has shortness of breath at rest. Onset: The symptoms/episode began/occurred tw4 today. Duration: The symptoms are continuous, and are unchanged since they started. The patient's shortness of breath has no apparent modifying factors. Associated signs and symptoms: Pertinent positives: nausea, vomiting. Severity of symptoms: At their worst the symptoms were moderate. The patient has not experienced similar symptoms in the past. 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 - Social history:: Smoking status: unknown Patient/guardian denies using alcohol, street drugs, tobacco products. ROS: 03:54 Constitutional: Negative for fever, chills, and weight loss, Eyes: Negative for injury, tw4 pain, redness, and discharge, Cardiovascular: Negative for chest pain, palpitations, and edema, Abdomen/GI: Negative for abdominal pain, nausea, vomiting, diarrhea, and constipation, Back: Negative for injury and pain, MS/Extremity: Negative for injury and deformity, Skin: Negative for injury, rash, and discoloration, Neuro: Negative for headache, weakness, numbness, tingling, and seizure. 03:54 Respiratory: Positive for shortness of breath, Negative for cough, dyspnea on exertion, orthopnea. Exam: 03:54 Constitutional: This is a well developed, well nourished patient who is awake, alert, tw4 and in no acute distress. Head/Face: Normocephalic, atraumatic. Chest/axilla: Normal chest wall appearance and motion. Nontender with no deformity. No lesions are appreciated. Cardiovascular: Regular rate and rhythm with a normal S1 and S2. No gallops, murmurs, or rubs. Normal PMI, no JVD. No pulse deficits. Respiratory: Lungs have equal breath sounds bilaterally, clear to auscultation and percussion. No rales, rhonchi or wheezes noted. No increased work of breathing, no retractions or nasal flaring. Abdomen/GI: Soft, non-tender, with normal bowel sounds. No distension or tympany. No guarding or rebound. No evidence of tenderness throughout. Back: No spinal tenderness. No costovertebral tenderness. Full range of motion. MS/ Extremity: Pulses equal, no cyanosis. Neurovascular intact. Full, normal range of motion. Neuro: Awake and alert, GCS 15, oriented to person, place, time, and situation. Cranial nerves II-XII grossly intact. Motor strength 5/5 in all extremities. Sensory grossly intact. Cerebellar exam normal. Normal gait. Vital Signs: 02:10 BP 133 / 84; Pulse 125; Resp 24; Temp 99.9; Pulse Ox 99% ; Weight 83.91 kg; Height 5 rr5 ft. 5 in. (165.10 cm); 03:10 BP 116 / 75; Pulse 107; Resp 21; Pulse Ox 100% ; rr5 03:54 BP 105 / 66; Pulse 98; Resp 12; Pulse Ox 96% on R/A; rv 04:30 BP 110 / 74; Pulse 90; Resp 19; Pulse Ox 99% ; rr5 05:22 BP 102 / 62; Pulse 95; Resp 16; Pulse Ox 99% on R/A; rr5 02:10 Body Mass Index 30.79 (83.91 kg, 165.10 cm) rr5 MDM: 03:36 Patient medically screened. tw4 06:57 Differential diagnosis: asthma, CHF exacerbation, pneumonia, pulmonary edema, Pulmonary tw4 Embolism reactive airway disease. Antibiotic administration: Not indicated. Data reviewed: vital signs, nurses notes. Data reviewed: lab test result(s), CBC, electrolytes, EKG, radiologic studies, plain films. Data interpreted: Pulse oximetry: Interpretation: normal. Test interpretation: by ED physician or midlevel provider: ECG, plain radiologic studies. Counseling: I had a detailed discussion with the patient and/or guardian regarding: the historical points, exam findings, and any diagnostic results supporting the discharge/admit diagnosis, lab results, radiology results. Special discussion: I discussed with the patient/guardian in detail that at this point there is no indication for admission to the hospital. It is understood, however, that if the symptoms persist or worsen the patient needs to return immediately for re-evaluation. 04/13 02:21 Order name: Blood Culture Adult (2) 04/13 02:21 Order name: BMP 04/13 02:21 Order name: C-Reactive Protein 04/13 02:21 Order name: CBC with Diff 04/13 02:21 Order name: COVID-19 04/13 02:21 Order name: D-Dimer 04/13 02:21 Order name: Ferritin 04/13 02:21 Order name: Flu 04/13 02:21 Order name: Lactate; Complete Time: 03:37 04/13 03:38 Interpretation: Within normal limits: LAC 1.8. 04/13 02:21 Order name: LFT's; Complete Time: 03:37 04/13 03:37 Interpretation: Normal except: A/G 0.7; GLOB 4.7; ALB 3.2; AST 42. 04/13 02:21 Order name: Lipase; Complete Time: 03:37 04/13 03:38 Interpretation: Within normal limits: LIP 157. 04/13 02:21 Order name: Procalcitonin; Complete Time: 03:37 04/13 03:38 Interpretation: Within normal limits: Procalcitonin < 0.05. 04/13 02:21 Order name: PT-INR; Complete Time: 02:58 04/13 03:39 Interpretation: Normal except: PT 14.6. 04/13 02:21 Order name: Ptt, Activated; Complete Time: 02:58 04/13 02:21 Order name: Strep 04/13 02:21 Order name: Troponin (emerg Dept Use Only); Complete Time: 03:37 04/13 03:38 Interpretation: Within normal limits: TROPED < 0.02. 04/13 02:21 Order name: Urine Microscopic Only 04/13 02:21 Order name: CXR XRAY rr5 04/13 02:22 Order name: Blood Culture [facility] 04/13 02:22 Order name: Basic Metabolic Panel; Complete Time: 03:37 EDMS 04/13 03:38 Interpretation: Normal except: NA 135; K 3.4; GLUC 276; GFR 68. 4 04/13 02:22 Order name: C-Reactive Protein; Complete Time: 03:37 EDMS 04/13 03:38 Interpretation: Abnormal: C-REACTIVE PROT 42.00. 4 04/13 02:22 Order name: CBC with Automated Diff; Complete Time: 02:58 EDMS 04/13 03:39 Interpretation: Normal except: WBC 3.0; PLT 138; EVER% 77.7. 04/13 02:22 Order name: CORONAVIRUS EDCO 04/13 02:22 Order name: D-Dimer; Complete Time: 02:58 EDMS 04/13 02:22 Order name: Ferritin; Complete Time: 03:37 EDCO 04/13 03:39 Interpretation: Within normal limits: ALONZO 132.1. 04/13 02:22 Order name: Influenza Screen (A EDCO 04/13 03:39 Order name: ABG 04/13 05:17 Order name: Urine Dipstick--Ancillary (enter results) [facility] 04/13 02:21 Order name: EKG; Complete Time: 02:23 04/13 02:21 Order name: Cardiac monitoring; Complete Time: 03:08 04/13 02:21 Order name: Document PUI#; Complete Time: 03:55 04/13 02:21 Order name: Droplet/Contact Precautions; Complete Time: 03:03 04/13 02:21 Order name: EKG - Nurse/Tech; Complete Time: 03:03 04/13 02:21 Order name: IV Start; Complete Time: 03:03 04/13 02:21 Order name: Labs collected and sent; Complete Time: 03:03 04/13 02:21 Order name: Notify Health Dept [phone]/ ; Complete Time: 03:04 04/13 02:21 Order name: O2 Per Protocol; Complete Time: 03:04 04/13 02:21 Order name: O2 Sat Monitoring; Complete Time: 03:04 rr5 04/13 02:21 Order name: Urine Dipstick-Ancillary (obtain specimen); Complete Time: 05:24 rr5 04/13 04:29 Order name: PO challenge; Complete Time: 04:35 tw4 EC:54 Rate is 111 beats/min. Rhythm is regular, Sinus tachycardia. QRS [place] is Normal. [place] tw4 interval is normal. QRS interval is normal. QT interval is normal. No Q waves. No ST changes noted. Clinical impression: Sinus tachycardia. Interpreted by me. Reviewed by me. Administered Medications: 02:25 Drug: NS 0.9% (30 ml/kg) 30 ml/kg Route: IV; Rate: bolus; Site: right antecubital; rr5 04:00 Follow up: Response: No adverse reaction; IV Status: Completed infusion; IV Intake: rr5 2500ml 03:53 Drug: Rocephin - (cefTRIAXone) 1 grams Route: IVPB; Infused Over: 30 mins; Site: right rv antecubital; 04:30 Follow up: Response: No adverse reaction; IV Status: Completed infusion rr5 03:53 Not Given (Physician Discretion): AZITHromycin 500 mg IVPB once over 1 hrs; (mix in 250 rv mL NS) 03:54 Drug: AZITHromycin 500 mg Route: PO; rv 05:00 Follow up: Response: No adverse reaction rr5 04:00 Drug: Zofran (Ondansetron) 4 mg Route: IVP; Site: right antecubital; rv 05:00 Follow up: Response: No adverse reaction rr5 Disposition: 04/13/20 05:25 Discharged to Home. Impression: Nausea and vomiting, Dehydration, Pneumonia due to other specified bacteria. - Condition is Stable. - Discharge Instructions: Dehydration, Adult, Community-Acquired Pneumonia, Adult. - Prescriptions for Zofran 4 mg Oral Tablet - take 1 tablet by ORAL route every 12 hours As needed; 20 tablet. - Medication Reconciliation Form, Thank You Letter, Antibiotic Education, Prescription Opioid Use form. - Follow up: Private Physician; When: Upon discharge from the Emergency Department; Reason: Recheck today's complaints, Continuance of care, Re-evaluation by your physician. - Problem is an ongoing problem. - Symptoms have improved. Signatures: Dispatcher [facility] Zaynab Perez, KILN STOKER-C KILN STOKER-Csnw Patrick Luna MD MD tw4 Alex Walton, RN RN Mert Veronica, RN RN rr5 Corrections: (The following items were deleted from the chart) 02:26 02:23 LACTATE+C.LAB.BRZ ordered. [facility] 05:45 05:25 04/13/2020 05:25 Discharged to Home. Impression: Nausea and vomiting; rr5 Dehydration; Pneumonia due to other specified bacteria. Condition is Stable. Forms are Medication Reconciliation Form, Thank You Letter, Antibiotic Education, Prescription Opioid Use. Follow up: Private Physician; When: Upon discharge from the Emergency Department; Reason: Recheck today's complaints, Continuance of care, Re-evaluation by your physician. Problem is an ongoing problem. Symptoms have improved. tw4
--- NOTE | 2020-04-13 05:26 | ER ---
Nurse's Notes [facility] Name: Chelsie Zaragoza Age: 45 yrs Sex: Female : 1975 Arrival Date: 04/13/2020 Time: 02:14 Bed 6 Private MD: Diagnosis: Nausea and vomiting;Dehydration;Pneumonia due to other specified bacteria Presentation: 04/13 02:10 Chief complaint: EMS states: complaints of Shortness of breath , vomiting. diagnosed rr5 with pneumonia 3 days ago on antibiotic treatment. 02:10 Coronavirus screen: Surgical mask placed on patient. Patient moved to private room, rr5 placed in contact and droplet isolation with eye protection until further assessment. Patient reports shortness of breath or difficulty breathing. Patient reports a measured and/or subjective temperature greater than 100.4F. Patient denies travel on a cruise ship or to a country the [facility] currently lists as an affected area. Patient reports contact with known and/or suspected case of COVID-19. Prior COVID test collected on: 04/05/20 positive covid fathers day. [facility] tested negative last 04/05/20. 02:10 Method Of Arrival: EMS: [facility] rr5 02:10 Initial Sepsis Screen: Does the patient meet any 2 criteria? RR > 20 per min. Temp rr5 <36.0*C (96.8*F)) or > 38.3*C (100.9*F). HR > 90 bpm. Does the patient have a suspected source of infection? Yes: Productive cough/pneumonia If YES to both, name of provider notified: Patrick Luna MD 02:10 Ebola Screen: Patient negative for fever greater than or equal to 101.5 degrees rr5 Fahrenheit, and additional compatible Ebola Virus Disease symptoms Patient denies exposure to infectious person. Patient denies travel to an Ebola-affected area in the 21 days before illness onset. Risk Assessment: Do you want to hurt yourself or someone else? Patient reports no desire to harm self or others. Onset of symptoms was April 05, 2020. Care prior to arrival: Medication(s) given: Tylenol, 1000 mg, zofran 4 mg. 02:22 Acuity: YANNA 2 rr5 Triage Assessment: 02:10 Respiratory: the patient has mild shortness of breath. 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 - Social history:: Smoking status: unknown Patient/guardian denies using alcohol, street drugs, tobacco products. Screenin:10 Abuse screen: Denies threats or abuse. Denies injuries from another. Nutritional rr5 screening: No deficits noted. Tuberculosis screening: No symptoms or risk factors identified. Fall Risk IV access (20 points). Total Brand Fall Scale indicates No Risk (0-24 pts). Assessment: 02:10 General: Appears in no apparent distress. uncomfortable, Behavior is calm, cooperative, rr5 appropriate for age, Reports feeling ill for fatigue for. 02:10 Neuro: Level of Consciousness is awake, alert, obeys commands, Oriented to person, rr5 place, time, situation. Cardiovascular: Capillary refill < 3 seconds Patient's skin is warm and dry. Rhythm is sinus tachycardia. Respiratory: Reports shortness of breath at rest on exertion cough that is been diagnosed with pneumonia Airway is patent Respiratory effort is even, unlabored, Respiratory pattern is regular, symmetrical, GI: Reports nausea, vomiting. : No signs and/or symptoms were reported regarding the genitourinary system. EENT: No signs and/or symptoms were reported regarding the EENT system. Derm: Skin is intact, is healthy with good turgor, Skin temperature is warm. Musculoskeletal: Circulation, motion, and sensation intact. Capillary refill < 3 seconds. 02:10 Pain: Complains of pain in back Pain currently is 8 out of 10 on a pain scale. Quality rr5 of pain is described as aching, Pain began gradually, Is intermittent. 03:00 Reassessment: Patient appears in no apparent distress at this time. Patient is alert, rr5 oriented x 3, equal unlabored respirations, skin warm/dry/pink. follow up to ED provider for the antibiotic, will wait for the result of chest X-ray. patient resting on bed on semi chawla position, awaiting for results. 04:00 Reassessment: Patient appears in no apparent distress at this time. Patient and/or rr5 family updated on plan of care and expected duration. Pain level reassessed. Patient is alert, oriented x 3, equal unlabored respirations, skin warm/dry/pink. 04:50 Reassessment: Patient appears in no apparent distress at this time. Patient is alert, rr5 oriented x 3, equal unlabored respirations, skin warm/dry/pink. no nausea or vomiting noted after the PO challenge. 05:43 Reassessment: Patient appears in no apparent distress at this time. Patient is alert, rr5 oriented x 3, equal unlabored respirations, skin warm/dry/pink. discharge instruction given and explained without complaints made Patient states feeling better. Patient states symptoms have improved. Vital Signs: 02:10 BP 133 / 84; Pulse 125; Resp 24; Temp 99.9; Pulse Ox 99% ; Weight 83.91 kg; Height 5 rr5 ft. 5 in. (165.10 cm); 03:10 BP 116 / 75; Pulse 107; Resp 21; Pulse Ox 100% ; rr5 03:54 BP 105 / 66; Pulse 98; Resp 12; Pulse Ox 96% on R/A; rv 04:30 BP 110 / 74; Pulse 90; Resp 19; Pulse Ox 99% ; rr5 05:22 BP 102 / 62; Pulse 95; Resp 16; Pulse Ox 99% on R/A; rr5 02:10 Body Mass Index 30.79 (83.91 kg, 165.10 cm) rr5 ED Course: 02:14 Patient arrived in ED. rr5 02:15 Arm band placed on right wrist. rr5 02:16 Patient has correct armband on for positive identification. Placed in gown. Bed in low rr5 position. Call light in reach. Side rails up X2. child monitor on. Pulse ox on. NIBP on. 02:16 IV discontinued, bleeding controlled, No redness/swelling at site. Pressure dressing rr5 applied, from EMS at left AC- infiltrated. 02:22 Triage completed. rr5 02:23 Mert Veronica RN is Primary Nurse. rr5 02:25 Inserted saline lock: 22 gauge in right antecubital area, using aseptic technique. rr5 ,using aseptic technique. inserted by felicia COREAS Blood collected. 02:25 First set of blood cultures drawn by ED staff. rr5 02:45 Flu and/or RSV swab sent to lab. Strep swab sent to lab. covid 19. rr5 02:54 CXR XRAY In Process Unspecified. EDMS 03:02 EKG done, by ED staff, reviewed by Patrick Luna MD. rr5 03:07 Patrick Luna MD is Attending Physician. tw4 04:00 ABG drawn. by RT staff, on room air. rr5 05:15 Urine collected: clean catch specimen, clear. rr5 05:26 No provider procedures requiring assistance completed. rv 05:44 IV discontinued, intact, bleeding controlled, No redness/swelling at site. Pressure rr5 dressing applied. Administered Medications: 02:25 Drug: NS 0.9% (30 ml/kg) 30 ml/kg Route: IV; Rate: bolus; Site: right antecubital; rr5 04:00 Follow up: Response: No adverse reaction; IV Status: Completed infusion; IV Intake: rr5 2500ml 03:53 Drug: Rocephin - (cefTRIAXone) 1 grams Route: IVPB; Infused Over: 30 mins; Site: right rv antecubital; 04:30 Follow up: Response: No adverse reaction; IV Status: Completed infusion rr5 03:53 Not Given (Physician Discretion): AZITHromycin 500 mg IVPB once over 1 hrs; (mix in 250 rv mL NS) 03:54 Drug: AZITHromycin 500 mg Route: PO; rv 05:00 Follow up: Response: No adverse reaction rr5 04:00 Drug: Zofran (Ondansetron) 4 mg Route: IVP; Site: right antecubital; rv 05:00 Follow up: Response: No adverse reaction rr5 Intake: 04:00 IV: 2500ml; Total: 2500ml. rr5 Outcome: 05:25 Discharge ordered by . tw4 05:27 Discharged to home ambulatory. rv 05:27 Condition: good 05:44 Discharge instructions given to patient, Instructed on discharge instructions, follow rr5 up and referral plans. medication usage, Demonstrated understanding of instructions, follow-up care, medications, Prescriptions given X 1. 05:45 Patient left the ED. rr5 Signatures: Dispatcher [employer] [facility] Patrick Luna MD MD tw4 Alex Walton RN RN rv Veronica, Mert, RN RN rr5 Corrections: (The following items were deleted from the chart) 03:10 02:10 Respiratory: Reports shortness of breath at rest on exertion cough that is been rr5 diagnosed with pneumonia Airway is patent Respiratory effort is even, unlabored, Respiratory pattern is regular, symmetrical, rr5
[2020-04-13 05:45] LABS: Urine Bacteria 20-50 /HPF (<20); Urine Culture Reflex Order REFLEXED
[2020-04-13 05:49] VITALS: TEMP 99.9
[2020-04-13 05:53] VITALS: O2SAT 99
[2020-04-13 05:57] VITALS: BP 102/62
--- NOTE | 2020-04-13 08:55 | EKG ---
Test Date: 2020-04-13 Test Time: 03:00:22 Tar Heater: ADITI MEASUREMENT RESULTS: Intervals: Rate: 111 FL: 130 QRSD: 82 QT: 308 QTc: 418 [place]: P: 53 FL: 130 QRS: 40 T: 43 INTERPRETIVE STATEMENTS: Sinus tachycardia Otherwise normal ECG No previous ECG available for comparison Electronically Signed On 04-13-20 08:55:07 CDT by Serjio Myles
--- NOTE | 2020-04-13 11:58 | RAD REPORT ---
EXAM DESCRIPTION: RAD - Chest Single View - 04/13/2020 2:54 am CLINICAL HISTORY: SOB Chest pain. COMPARISON: Chest Single View dated 04/10/2020 FINDINGS: Portable technique limits examination quality. Mild infiltrate is present both lung bases, greater on the left, mildly progressive since the compara tive study compatible with pneumonia. The heart is normal in size. No displaced fractures.
== END 2020-04-13 05:45 | disposition home or self-care (01) ==
LOC: ER 02:03
DX: U07.1 COVID-19 (principal); J15.8 Pneumonia due to other specified bacteria; E86.0 Dehydration; E11.9 Type 2 diabetes mellitus without complications
CPT/HCPCS: 36415; 71045; 80048; 80076; 81003; 81015; 82728; 82805; 83605; 83690; 84145; 84484; 85025; 85379; 85610; 85730; 86140; 87040; 87077; 87081; 87086; 87088; 87186; 87804; 93005; 96365; 96375; 99285; J0696; J2405; J7030; J7040; U0001

== ENCOUNTER 2021-03-05 14:12 | Emergency (ER) | payer SELFPAY ==
--- OUTSIDE RECORDS SUMMARY | 2021-03-05 14:15 | XMS REPORT | Continuity of Care Document ---
:1975 Author Organization [facility] t Address [address] [place] [address] Care Team Providers Name Role Phone Ninfa Sipvey Attending Clinician Problems This patient has no known problems. Allergies, Adverse Reactions, Alerts This patient has no known allergies or adverse reactions. Medications This patient has no known medications. Procedures This patient has no known procedures. Encounters Start End Encounter Admission Attending Care Care Encounter Source Date/Time Date/Time Type Type Clinicians Facility Department ID 2020-04-08 2020-04-08 Letter [facility] [id number] 00:00:00 00:00:00 (Out) Mariama Martinez [id number] [place] [id number] [place] [address] [phone] [id number] 2020-04-08 2020-04-08 Letter [facility] [id number] 00:00:00 00:00:00 (Out) Mariama Martinez [id number] [place] [id number] [place] [address] [id number] 2020-04-08 2020-04-08 Letter [facility] [id number] 00:00:00 00:00:00 (Out) Mariama Martinez [id number] [place] [id number] [place] [address] [id number] 2020-04-05 2020-04-06 Emergency [facility] [id number] 23:30:47 02:43:00 Mariama Martinez [id number] [place] [id number] [place] [id number] Results This patient has no known results.
[2021-03-05 15:12] LABS: Urine Blood 1+ (Negative); Urine Glucose 2+ (Negative); Urine Protein 3+ (Negative); Urine Specific Gravity 1.015 (1.005-1.030)
[2021-03-05 15:13] LABS: Absolute Lymphocytes (CBC) 1.4 K/uL (0.7-4.9); Basophils % 0.8 % (0-1.3); Hematocrit 41.1 % (36.0-45.0); Lymphocytes % 15.1 % (15.3-44.8); MPV 10.2 fL (7.6-11.3); RBC Red Blood Cell Count 4.87 M/uL (3.86-4.86)
[2021-03-05 15:31] LABS: Albumin 3.4 g/dL (3.4-5.0); Bilirubin Direct 0.2 mg/dL (0-0.2); Bilirubin Total 1.1 mg/dL (0.2-1.0); Potassium 4.1 mmol/L (3.5-5.1); Protein, Total 8.1 g/dL (6.4-8.2)
--- NOTE | 2021-03-05 15:38 | RAD REPORT ---
EXAM DESCRIPTION: CT - Stone Protocol - 03/05/2021 3:14 pm CLINICAL HISTORY: Abdominal pain. Right flank pain COMPARISON: 2019 TECHNIQUE: Computed axial tomography of the abdomen pelvis was obtained without oral or IV contrast. Lack of IV and oral contrast limits evaluation of solid organs, bowel, and vessels. Coronal reformat jennifer images were obtained and reviewed. All CT scans are performed using dose optimization technique as appropriate and may include automated exposure control or mA/KV adjustment according to patient size. FINDINGS: Mild right hydronephrosis. The right ureter is dilated with stranding within the adjacent. A renal calculus is not seen. An ureteral calculus is not noted. A bladder calculus is not present. The liver, spleen, pancreas and adrenals appear grossly normal. Cholecystectomy There is no evidence of diverticulitis. The appendix appears normal Cholecystectomy. Moderate amount of stool within the colon IMPRESSION: Mild right hydronephrosis and right hydroureter. Given the stranding within the adjacent ureter this may be secondary to infection. Another consideration is that the patient has had a recen tly passed calculus.
[2021-03-05] MEDS ORDERED: MORPHINE 4 MG/ML SYR ONE (15:47)
[2021-03-05] MEDS ORDERED: ONDANSETRON 4 MG/2 ML VIAL ONE (15:47)
[2021-03-05 15:48] LABS: Urine Bacteria >50 /HPF (<20); Urine RBC <5 /HPF (NONE SEEN)
[2021-03-05] MEDS ORDERED: KETOROLAC 30 MG/ML INJ ONE (16:57)
[2021-03-05] MEDS ORDERED: CEFTRIAXONE/SWI 1gm 2 GM/20 ML SYR ONE (16:57)
--- NOTE | 2021-03-05 17:22 | ER ---
Nurse's Notes [facility] Name: Chelsie Zaragoza Age: 46 yrs Sex: Female : 1975 Arrival Date: 03/05/2021 Time: 14:15 Bed 4 Private MD: Diagnosis: Urinary tract infection, site not specified Presentation: 03/05 14:26 Chief complaint: Patient states: back pain that radiates into right groin, reports em frequency urinating for 5-7 days, denies burning with urination, denies N/V/D or fever. Coronavirus screen: Client denies travel out of the [place] in the last 14 days. Ebola Screen: Patient negative for fever greater than or equal to 101.5 degrees Fahrenheit, and additional compatible Ebola Virus Disease symptoms Patient denies exposure to infectious person. Patient denies travel to an Ebola-affected area in the 21 days before illness onset. No symptoms or risks identified at this time. Initial Sepsis Screen: Does the patient meet any 2 criteria? HR > 90 bpm. Does the patient have a suspected source of infection? Yes: Dysuria/Frequency/Urgency/UTI. Risk Assessment: Do you want to hurt yourself or someone else? Patient reports no desire to harm self or others. Onset of symptoms was March 05, 2021. 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 - Social history:: Smoking status: Patient denies any tobacco usage or history of. Screenin:00 Abuse screen: Denies threats or abuse. Denies injuries from another. Nutritional jl7 screening: No deficits noted. Tuberculosis screening: No symptoms or risk factors identified. Fall Risk IV access (20 points). Total Brand Fall Scale indicates No Risk (0-24 pts). Assessment: 15:00 General: Appears in no apparent distress. uncomfortable, Behavior is calm, cooperative, jl7 appropriate for age. Pain: Complains of pain in low back area, right lower quadrant and left lower quadrant Pain currently is 9 out of 10 on a pain scale. Pain began x 1 week. Neuro: Level of Consciousness is awake, alert, obeys commands, Oriented to person, place, time, situation. Cardiovascular: Patient's skin is warm and dry. Respiratory: Airway is patent Respiratory effort is even, unlabored, Respiratory pattern is regular, symmetrical. GI: Abdomen is round non-distended. : Reports urinary frequency. Derm: Skin is pink, warm \T\ dry. 16:00 Reassessment: Patient appears in no apparent distress at this time. Patient and/or jl7 family updated on plan of care and expected duration. Pain level reassessed. Patient is alert, oriented x 3, equal unlabored respirations, skin warm/dry/pink. reports decreased pain. 16:37 Reassessment: Pt reports increased pain, rated 8/10, ERP notified, see MAR for orders. jl7 17:30 Reassessment: Patient appears in no apparent distress at this time. Patient and/or hb family updated on plan of care and expected duration. Pain level reassessed. Patient is alert, oriented x 3, equal unlabored respirations, skin warm/dry/pink. Vital Signs: 14:26 BP 154 / 94; Pulse 122; Resp 20; Temp 99.0(O); Pulse Ox 99% on R/A; Weight 81.65 kg; em Height 5 ft. 5 in. (165.10 cm); Pain 9/10; 15:30 BP 116 / 86; Pulse 105; Resp 16; Pulse Ox 99% ; Pain 9/10; jl7 16:00 BP 114 / 84; Pulse 94; Resp 15; Pulse Ox 100% ; jl7 16:53 BP 113 / 87; Pulse 98; Resp 15; Pulse Ox 98% ; jl7 17:45 BP 126 / 86; Pulse 88; Resp 15; Pulse Ox 99% on R/A; hb 14:26 Body Mass Index 29.95 (81.65 kg, 165.10 cm) em ED Course: 14:15 Patient arrived in ED. mr 14:28 Triage completed. em 14:28 Arm band placed on. em 14:30 Ciro Gautam PA is PHCP. [facility] 14:30 Jorge Kim MD is Attending Physician. [facility] 14:36 Henok Garces JOSS is Primary Nurse. jl7 15:00 Patient has correct armband on for positive identification. Placed in gown. Bed in low jl7 position. Call light in reach. Side rails up X 1. Pulse ox on. NIBP on. 15:00 Initial lab(s) drawn, by ED staff, sent to lab. Urine collected: clean catch specimen, jl7 cloudy. Inserted saline lock: 22 gauge in left antecubital area, using aseptic technique. Blood collected. 15:14 CT Stone Protocol In Process Unspecified. EDMS 17:45 No provider procedures requiring assistance completed. IV discontinued, intact, hb bleeding controlled, No redness/swelling at site. Administered Medications: 15:32 Drug: Zofran (Ondansetron) 4 mg Route: IVP; Site: left antecubital; jl7 16:00 Follow up: Response: No adverse reaction jl7 15:34 Drug: morphine 4 mg Route: IVP; Site: left antecubital; jl7 16:00 Follow up: Response: No adverse reaction; Pain is decreased jl7 16:38 Drug: TORadol (ketorolac) 30 mg Route: IVP; Site: left antecubital; jl7 17:30 Follow up: Response: No adverse reaction hb 16:40 Drug: Rocephin (cefTRIAXone) 2 grams Route: IV; Rate: calculated rate; Site: left jl7 antecubital; 16:42 Follow up: IV Status: Completed infusion; IV Intake: 20ml hb 17:30 Follow up: Response: No adverse reaction hb Intake: 16:42 IV: 20ml; Total: 20ml. hb Outcome: 17:22 Discharge ordered by MD. holt 17:45 Discharged to home ambulatory, with significant other. hb 17:45 Condition: stable 17:45 Discharge instructions given to patient, Instructed on discharge instructions, follow up and referral plans. medication usage, Demonstrated understanding of instructions, follow-up care, medications, Prescriptions given X 2. 18:02 Patient left the ED. hb Addendum: 03/09/2021 12:00 Addendum: Culture Results: Positive urine culture. No further action required. Bacteria h b sensitive to prescribed antibiotic. Signatures: Dispatcher [employer] EDMS Ciro Gautam PA PA jmm Rivera, Mary mr Munoz, Edgar, RN RN em Neisha Oseguera, RN RN Henok Garces RN RN jl7 Corrections: (The following items were deleted from the chart) 03/05 15:24 14:26 Acuity: YANNA 3 em gideon
--- NOTE | 2021-03-05 17:23 | EDPHYS ---
Physician Documentation [facility] Name: Chelsie Zaragoza Age: 46 yrs Sex: Female : 1975 Arrival Date: 03/05/2021 Time: 14:15 Bed 4 Private MD: ED Physician Jorge Kim HPI: 03/05 17:19 This 46 yrs old Female presents to ER via Wheelchair with complaints of jmm Abdominal Pain, Back Pain. 17:19 The patient presents with abdominal pain. Onset: The symptoms/episode began/occurred jmm gradually, 1 week(s) ago. The symptoms radiate to pelvis. The symptoms are described as achy. Modifying factors: The symptoms are alleviated by nothing, the symptoms are aggravated by nothing. The patient has not experienced similar symptoms in the past. This is a 46 year old female with a history of DM, pneumonia that presents to the ED with complaints of right sided abdominal pin which radiates in to her groin. Also complains if painful urination and increased frequency. . 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 - Social history:: Smoking status: Patient denies any tobacco usage or history of. ROS: 17:19 Constitutional: Negative for fever, chills, and weight loss, Cardiovascular: Negative jm for chest pain, palpitations, and edema, Respiratory: Negative for shortness of breath, cough, wheezing, and pleuritic chest pain. 17:19 Abdomen/GI: Positive for abdominal pain. 17:19 All other systems are negative. Exam: 17:19 Head/Face: atraumatic. jmm 17:19 Head/Face: atraumatic. Eyes: EOMI, no conjunctival erythema appreciated ENT: Moist Mucus Membranes Neck: Trachea midline, Supple Chest/axilla: Normal chest wall appearance and motion. Cardiovascular: Regular rate and rhythm. No edema appreciated Respiratory: Normal respirations, no respiratory distress appreciated 17:19 Skin: General appearance color normal MS/ Extremity: Moves all extremities, no obvious deformities appreciated, no edema noted to the lower extremities Neuro: Awake and alert, normal gait Psych: Behavior is normal, Mood is normal, Patient is cooperative and pleasant 17:19 Constitutional: The patient appears alert, awake, anxious, uncomfortable. 17:19 Abdomen/GI: Inspection: abdomen appears normal, Bowel sounds: normal, Palpation: soft, mild abdominal tenderness, in the suprapubic area and right lower quadrant. Vital Signs: 14:26 BP 154 / 94; Pulse 122; Resp 20; Temp 99.0(O); Pulse Ox 99% on R/A; Weight 81.65 kg; em Height 5 ft. 5 in. (165.10 cm); Pain 9/10; 15:30 BP 116 / 86; Pulse 105; Resp 16; Pulse Ox 99% ; Pain 9/10; jl7 16:00 BP 114 / 84; Pulse 94; Resp 15; Pulse Ox 100% ; jl7 16:53 BP 113 / 87; Pulse 98; Resp 15; Pulse Ox 98% ; jl7 17:45 BP 126 / 86; Pulse 88; Resp 15; Pulse Ox 99% on R/A; hb 14:26 Body Mass Index 29.95 (81.65 kg, 165.10 cm) em MDM: 14:55 Patient medically screened. [facility] 17:21 Data reviewed: vital signs, nurses notes. Counseling: I had a detailed discussion with jonathon the patient and/or guardian regarding: the historical points, exam findings, and any diagnostic results supporting the discharge/admit diagnosis, lab results, radiology results, the need for outpatient follow up, to return to the emergency department if symptoms worsen or persist or if there are any questions or concerns that arise at home. ED course: patient given IV abx, advised to follow up with pcp and otherwise given strict return precautions. patient understood and agrees with the plan of care. . 03/05 14:55 Order name: Basic Metabolic Panel; Complete Time: 16:[address] [facility] 03/05 14:55 Order name: CBC with Diff; Complete Time: 16:[address] [facility] 03/05 14:55 Order name: Hepatic Function; Complete Time: 16:[address] [facility] 03/05 14:55 Order name: Lipase; Complete Time: 16:[address] [facility] 03/05 15:11 Order name: Urine Microscopic Only; Complete Time: 16:18 03/05 15:12 Order name: Urine Dipstick-Ancillary; Complete Time: 15:14 [facility] 03/05 14:55 Order name: IV Saline Lock; Complete Time: 15:[address] [facility] 03/05 14:55 Order name: CT Stone Protocol; Complete Time: 16:[address] [facility] 03/05 15:14 Order name: Urine --Ancillary (enter results) 03/05 15:49 Order name: Urine Culture [facility] 03/05 14:55 Order name: Labs collected and sent; Complete Time: 15:[address] [facility] 03/05 14:55 Order name: Urine Dipstick-Ancillary (obtain specimen); Complete Time: 15:[address] [facility] 03/05 14:55 Order name: Urine Test (obtain specimen); Complete Time: 15:[address] [facility] Administered Medications: 15:32 Drug: Zofran (Ondansetron) 4 mg Route: IVP; Site: left antecubital; jl7 16:00 Follow up: Response: No adverse reaction [facility] 15:34 Drug: morphine 4 mg Route: IVP; Site: left antecubital; jl7 16:00 Follow up: Response: No adverse reaction; Pain is decreased [facility] 16:38 Drug: TORadol (ketorolac) 30 mg Route: IVP; Site: left antecubital; jl7 17:30 Follow up: Response: No adverse reaction hb 16:40 Drug: Rocephin (cefTRIAXone) 2 grams Route: IV; Rate: calculated rate; Site: left jl7 antecubital; 16:42 Follow up: IV Status: Completed infusion; IV Intake: 20ml hb 17:30 Follow up: Response: No adverse reaction hb Disposition: 18:17 Co-signature as Attending Physician, Jorge Kim MD I agree with the assessment and kdr plan of care. Disposition: 03/05/21 17:22 Discharged to Home. Impression: Urinary tract infection, site not specified. - Condition is Stable. - Discharge Instructions: Urinary Tract Infection, Adult. - Prescriptions for Zofran ODT 4 mg Oral tablet,disintegrating - place 1 tablet by TRANSLINGUAL route every 4-6 hours; 20 tablet. cefpodoxime 200 mg Oral Tablet - take 1 tablet by ORAL route every 12 hours for 10 days with food; 20 tablet. - Work release form, Medication Reconciliation Form, Thank You Letter, Antibiotic Education, Prescription Opioid Use form. - Follow up: Private Physician; When: 2 - 3 days; Reason: Recheck today's complaints, Continuance of care, Re-evaluation by your physician. Signatures: Dispatcher [employer] Jorge Schneider MD MD kdr Mickail, Joel, PA PA jmm Munoz, Edgar, RN RN em Neisha Oseguera RN RN Henok Garces RN RN jl7 Corrections: (The following items were deleted from the chart) 18:02 17:22 03/05/2021 17:22 Discharged to Home. Impression: Urinary tract infection, site hb not specified. Condition is Stable. Forms are Medication Reconciliation Form, Thank You Letter, Antibiotic Education, Prescription Opioid Use. Follow up: Private Physician; When: 2 - 3 days; Reason: Recheck today's complaints, Continuance of care, Re-evaluation by your physician. jonathon
[2021-03-05 19:44] VITALS: TEMP 99
[2021-03-05 19:50] VITALS: BP 126/86; O2SAT 99
[2021-03-05 20:20] LABS: Urine Specific Gravity/Preg 1.015 (1.005-1.030)
== END 2021-03-05 18:02 | disposition home or self-care (01) ==
LOC: ER 14:12
DX: N39.0 Urinary tract infection, site not specified (principal); E11.9 Type 2 diabetes mellitus without complications
CPT/HCPCS: 36415; 74176; 76377; 80048; 80076; 81003; 81015; 81025; 83690; 85025; 87077; 87086; 87088; 87186; 96374; 96375; 99284; J0696; J2405

== ENCOUNTER 2021-03-21 22:26 | Emergency (ER) | payer SELFPAY ==
[2021-03-22 00:50] LABS: Absolute Lymphocytes (CBC) 0.9 K/uL (0.7-4.9); Basophils % 0.8 % (0-1.3); Hematocrit 45.3 % (36.0-45.0); Lymphocytes % 12.6 % (15.3-44.8); MPV 11.1 fL (7.6-11.3); RBC Red Blood Cell Count 5.35 M/uL (3.86-4.86)
[2021-03-22 01:10] LABS: Albumin 3.8 g/dL (3.4-5.0); Bilirubin Direct 0.2 mg/dL (0-0.2); Bilirubin Total 1.6 mg/dL (0.2-1.0); Potassium 3.7 mmol/L (3.5-5.1); Protein, Total 8.3 g/dL (6.4-8.2)
[2021-03-22] MEDS ORDERED: MORPHINE 2 MG/ML SYR ONE (01:25)
[2021-03-22] MEDS ORDERED: ONDANSETRON 4 MG/2 ML VIAL ONE (01:26)
[2021-03-22] MEDS ORDERED: NA CHLORIDE 0.9% 1,000 ML ONE (01:26)
[2021-03-22] MEDS ORDERED: FAMOTIDINE 20 MG/2 ML VIAL IV ONE (01:26)
[2021-03-22 02:21] LABS: Urine Blood Negative (Negative); Urine Glucose 2+ (Negative); Urine Protein Negative (Negative); Urine Specific Gravity >=1.030 (1.005-1.030); Urine pH 5.5 (5.0-7.0)
[2021-03-22 02:52] LABS: Urine Bacteria >50 /HPF (<20); Urine Mucus 3+ /HPF (NONE SEEN)
--- NOTE | 2021-03-22 03:52 | EDPHYS ---
Physician Documentation [facility] Name: Chelsie Zaragoza Age: 46 yrs Sex: Female : 1975 Arrival Date: 03/21/2021 Time: 22:28 Bed 15 Private MD: ED Physician Tyson Powell HPI: 03/22 01:31 This 46 yrs old Female presents to ER via Ambulatory with complaints of Fever, mh7 Vomiting. 01:31 The patient presents to the emergency department with nausea, that is moderate, mh7 vomiting, that is intermittent, 4 times since the onset of symptoms, described as clear fluid, diarrhea, that is intermittent, 3 times since the onset of symptoms. Onset: The symptoms/episode began/occurred 2 day(s) ago. Possible causes: bad food exposure, possibly bad restaurant food. The symptoms are aggravated by nothing. The symptoms are alleviated by nothing. Associated signs and symptoms: Pertinent negatives: abdominal pain, anorexia, belching, constipation, dysuria, fever, flatulence, GI bleeding, hematuria, vaginal discharge. Severity of symptoms: At their worst the symptoms were moderate yesterday, in the emergency department the symptoms are unchanged. 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 - Social history:: Smoking status: Patient denies any tobacco usage or history of. ROS: 03/22 01:31 Constitutional: Negative for fever, chills, and weight loss, Eyes: Negative for injury, mh7 pain, redness, and discharge, Cardiovascular: Negative for chest pain, palpitations, and edema, Respiratory: Negative for shortness of breath, cough, wheezing, and pleuritic chest pain. Back: Negative for injury and pain, : Negative for injury, bleeding, discharge, and swelling, MS/Extremity: Negative for injury and deformity, Skin: Negative for injury, rash, and discoloration, Neuro: Negative for headache, weakness, numbness, tingling, and seizure, Psych: Negative for depression, anxiety, suicide ideation, homicidal ideation, and hallucinations, Allergy/Immunology: Negative for hives, rash, and allergies, Endocrine: Negative for neck swelling, polydipsia, polyuria, polyphagia, and marked weight changes, Hematologic/Lymphatic: Negative for swollen nodes, abnormal bleeding, and unusual bruising. Exam: 01:31 Constitutional: This is a well developed, well nourished patient who is awake, alert, mh7 and in no acute distress. Head/Face: Normocephalic, atraumatic. Eyes: Pupils equal round and reactive to light, extra-ocular motions intact. Lids and lashes normal. Conjunctiva and sclera are non-icteric and not injected. Cornea within normal limits. Periorbital areas with no swelling, redness, or edema. Neck: Trachea midline, no thyromegaly or masses palpated, and no cervical lymphadenopathy. Supple, full range of motion without nuchal rigidity, or vertebral point tenderness. No Meningismus. Chest/axilla: Normal chest wall appearance and motion. Nontender with no deformity. No lesions are appreciated. Cardiovascular: Regular rate and rhythm with a normal S1 and S2. No gallops, murmurs, or rubs. Normal PMI, no JVD. No pulse deficits. Respiratory: Lungs have equal breath sounds bilaterally, clear to auscultation and percussion. No rales, rhonchi or wheezes noted. No increased work of breathing, no retractions or nasal flaring. 01:31 Back: No spinal tenderness. No costovertebral tenderness. Full range of motion. Skin: Warm, dry with normal turgor. Normal color with no rashes, no lesions, and no evidence of cellulitis. MS/ Extremity: Pulses equal, no cyanosis. Neurovascular intact. Full, normal range of motion. Neuro: Awake and alert, GCS 15, oriented to person, place, time, and situation. Cranial nerves II-XII grossly intact. Motor strength 5/5 in all extremities. Sensory grossly intact. Cerebellar exam normal. Normal gait. Psych: Awake, alert, with orientation to person, place and time. Behavior, mood, and affect are within normal limits. 01:31 Abdomen/GI: Inspection: obese Bowel sounds: normal, in all quadrants, Palpation: moderate abdominal tenderness, in the epigastric area, mass, is not appreciated, rebound tenderness, is not appreciated, voluntary guarding, is not appreciated, involuntary guarding, is not appreciated, no appreciated organomegaly, Rectal exam: the exam is deferred, because of patient request, Indicators: McBurney's point is not tender, Aggarwal's sign is negative, Rovsing's sign is negative, Obturator sign is negative, Psoas sign is negative, Liver: no appreciated palpable abnormalities, Hernia: not appreciated. Vital Signs: 03/21 23:00 BP 105 / 87; Pulse 117; Resp 18; Temp 98.0; Pulse Ox 99% on R/A; Weight 81.65 kg; em Height 5 ft. 5 in. (165.10 cm); Pain 10/10; 03/22 00:00 BP 118 / 85; Pulse 115; Resp 18; Pulse Ox 96% on R/A; wh 02:00 BP 125 / 73; Pulse 97; Resp 18; Pulse Ox 96% on R/A; wh 03:45 BP 112 / 86; Pulse 92; Resp 18; Pulse Ox 97% on R/A; wh 03/21 23:00 Body Mass Index 29.95 (81.65 kg, 165.10 cm) em MDM: 03:49 Differential diagnosis: Nonspecific abd pain, gastritis, pancreatitis, appendicitis, mh7 diverticulitis, viral gastroenteritis, gastroenteritis. Data reviewed: vital signs, nurses notes, old medical records, lab test result(s), CBC, electrolytes, urinalysis, radiologic studies, CT scan. Data interpreted: Pulse oximetry: on room air is 99 %. Interpretation: normal. Counseling: I had a detailed discussion with the patient and/or guardian regarding: the historical points, exam findings, and any diagnostic results supporting the discharge/admit diagnosis, lab results, radiology results, the need for outpatient follow up, to return to the emergency department if symptoms worsen or persist or if there are any questions or concerns that arise at home. Response to treatment: the patient's symptoms have resolved after treatment, the patient's blood pressure is in an acceptable range, mental status has returned to baseline, the patient no longer shows bradycardia, the patient is not short of breath, the patient is not tachycardic, the patient's pain is gone, the patient's temperature has normalized. 03:51 Patient medically screened. [facility] 03/22 00:30 Order name: Basic Metabolic Panel 03/22 00:30 Order name: CBC with Diff 03/22 00:30 Order name: Hepatic Function 03/22 00:30 Order name: Lipase; Complete Time: 01:39 03/22 00:31 Order name: Basic Metabolic Panel; Complete Time: 01:39 [facility] 03/22 00:31 Order name: CBC with Automated Diff; Complete Time: 01:39 [facility] 03/22 00:31 Order name: Liver (Hepatic) Function; Complete Time: 01:39 [facility] 03/22 01:41 Order name: CT Abd/Pelvis - IV Contrast Only [facility] 03/22 02:21 Order name: Urine Dipstick-Ancillary [facility] 03/22 02:22 Order name: Urine Microscopic Only; Complete Time: 03:38 03/22 02:53 Order name: Urine Culture [facility] 03/22 04:00 Order name: Glucose, Ancillary Testing [facility] 03/22 00:30 Order name: IV Saline Lock; Complete Time: 00:33 03/22 00:30 Order name: Labs collected and sent; Complete Time: 00:33 03/22 01:41 Order name: EKG - Nurse/Tech; Complete Time: 02:22 [facility] 03/22 02:07 Order name: Urine Dipstick-Ancillary (obtain specimen); Complete Time: 02:22 03/22 02:07 Order name: Urine Test (obtain specimen); Complete Time: 02:22 Administered Medications: 01:08 Drug: NS 0.9% 1000 ml Route: IV; Rate: 1 bolus; Site: right antecubital; 02:07 Follow up: Response: No adverse reaction; IV Status: Completed infusion 01:10 Drug: morphine 2 mg {Note: RASS 0.} Route: IVP; Site: right antecubital; 02:07 Follow up: Response: No adverse reaction; Pain is decreased; RASS: Alert and Calm (0) 01:12 Drug: Zofran (Ondansetron) 4 mg Route: IVP; Site: right antecubital; 02:07 Follow up: Response: No adverse reaction; Nausea is decreased 01:14 Drug: Pepcid (famotidine) 20 mg Route: IVP; Site: right antecubital; 02:07 Follow up: Response: No adverse reaction 03:45 Drug: Rocephin (cefTRIAXone) 1 grams Route: IV; Rate: per protocol; Site: right antecubital; 03:53 Follow up: Response: No adverse reaction; IV Status: Completed infusion Disposition: 03/22/21 03:51 Discharged to Home. Impression: Gastroenteritis, Urinary tract infection, site not specified, Hyperglycemia, unspecified - Medication Noncompliance. - Condition is Stable. - Discharge Instructions: Viral Gastroenteritis, Adult, [id number], Urinary Tract Infection, Adult, [id number], Hyperglycemia, [id number]. - Prescriptions for Zofran ODT 4 mg Oral tablet,disintegrating - place 1 tablet by TRANSLINGUAL route every 8 hours As needed; 6 tablet. Bentyl 20 mg Oral Tablet - take 1 tablet by ORAL route every 6 hours As needed; 20 tablet. Metformin 500 mg Oral Tablet - take 1 tablet by ORAL route every 12 hours . Then take 1 tablet with morning meals AND evening meals; 30 tablet. Cipro 500 mg Oral Tablet - take 1 tablet by ORAL route every 12 hours for 7 days; 14 tablet. - Work release form, Medication Reconciliation Form, Thank You Letter, Antibiotic Education, Prescription Opioid Use form. - Follow up: Private Physician; When: 1 - 2 days; Reason: Worsening of condition, Recheck today's complaints, Continuance of care, Re-evaluation by your physician. - Problem is new. - Symptoms have improved. Signatures: Dispatcher [employer] Negro Concepcion RN RN Osvaldo Lambert RN RN Tyson Powell MD MD mh7 Corrections: (The following items were deleted from the chart) 04:08 03:51 03/22/2021 03:51 Discharged to Home. Impression: Gastroenteritis; Urinary tract infection, site not specified; Hyperglycemia, unspecified - Medication Noncompliance. Condition is Stable. Forms are Medication Reconciliation Form, Thank You Letter, Antibiotic Education, Prescription Opioid Use. Follow up: Private Physician; When: 1 - 2 days; Reason: Worsening of condition, Recheck today's complaints, Continuance of care, Re-evaluation by your physician. Problem is new. Symptoms have improved. 7
--- NOTE | 2021-03-22 03:52 | ER ---
Nurse's Notes [facility] Name: Chelsie Zaragoza Age: 46 yrs Sex: Female : 1975 Arrival Date: 03/21/2021 Time: 22:28 Bed 15 Private MD: Diagnosis: Gastroenteritis;Urinary tract infection, site not specified;Hyperglycemia, unspecified-Medication Noncompliance Presentation: 03/21 23:00 Chief complaint: Patient states: N/V/D since this morning, ate taco [employer] last night, em believes it may be food poisoning, denies fever. Coronavirus screen: Client denies travel out of the [place] in the last 14 days. Ebola Screen: Patient negative for fever greater than or equal to 101.5 degrees Fahrenheit, and additional compatible Ebola Virus Disease symptoms Patient denies exposure to infectious person. Patient denies travel to an Ebola-affected area in the 21 days before illness onset. No symptoms or risks identified at this time. Initial Sepsis Screen: Does the patient meet any 2 criteria? No. Patient's initial sepsis screen is negative. Does the patient have a suspected source of infection? No. Patient's initial sepsis screen is negative. Risk Assessment: Do you want to hurt yourself or someone else? Patient reports no desire to harm self or others. Onset of symptoms was March 21, 2021. 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 - Social history:: Smoking status: Patient denies any tobacco usage or history of. Screenin/12 00:00 Abuse screen: Denies threats or abuse. Denies injuries from another. Nutritional wh screening: No deficits noted. Tuberculosis screening: No symptoms or risk factors identified. Fall Risk None identified. Assessment: 00:00 General: Appears in no apparent distress. Behavior is calm, cooperative, appropriate wh for age. Pain: Complains of pain in abdomen Quality of pain is described as crampy. Neuro: Level of Consciousness is awake, alert, obeys commands, Oriented to person, place, time, situation, Appropriate for age. Cardiovascular: Capillary refill < 3 seconds. Respiratory: Airway is patent Respiratory effort is even, unlabored, Respiratory pattern is regular, symmetrical. GI: Abdomen is flat, non-distended, Reports lower abdominal pain, upper abdominal pain, diarrhea, nausea, vomiting. : No signs and/or symptoms were reported regarding the genitourinary system. EENT: No signs and/or symptoms were reported regarding the EENT system. Derm: Skin is intact, is healthy with good turgor, Skin is pink, warm \T\ dry. normal. Musculoskeletal: Circulation, motion, and sensation intact. 01:30 Reassessment: Patient appears in no apparent distress at this time. No changes from previously documented assessment. Patient and/or family updated on plan of care and expected duration. Pain level reassessed. Patient is alert, oriented x 3, equal unlabored respirations, skin warm/dry/pink. 03:15 Reassessment: Patient appears in no apparent distress at this time. Patient and/or family updated on plan of care and expected duration. Pain level reassessed. Patient is alert, oriented x 3, equal unlabored respirations, skin warm/dry/pink. Patient states feeling better. Patient states symptoms have improved. Vital Signs: 03/21 23:00 BP 105 / 87; Pulse 117; Resp 18; Temp 98.0; Pulse Ox 99% on R/A; Weight 81.65 kg; em Height 5 ft. 5 in. (165.10 cm); Pain 10/10; 03/22 00:00 BP 118 / 85; Pulse 115; Resp 18; Pulse Ox 96% on R/A; 02:00 BP 125 / 73; Pulse 97; Resp 18; Pulse Ox 96% on R/A; 03:45 BP 112 / 86; Pulse 92; Resp 18; Pulse Ox 97% on R/A; 03/21 23:00 Body Mass Index 29.95 (81.65 kg, 165.10 cm) em ED Course: 03/21 22:28 Patient arrived in ED. bp1 23:01 Triage completed. em 23:02 Arm band placed on. em 03/22 00:00 Patient has correct armband on for positive identification. Bed in low position. Call light in reach. Side rails up X 1. Pulse ox on. NIBP on. 00:01 Inserted saline lock: 22 gauge in right antecubital area, using aseptic technique. ap3 Blood collected. 00:16 Tyson Powell MD is Attending Physician. kemar 00:33 Osvaldo Lambert, RN is Primary Nurse. 02:40 CT Abd/Pelvis - IV Contrast Only In Process Unspecified. EDMS 04:05 No provider procedures requiring assistance completed. IV discontinued, intact, bleeding controlled, No redness/swelling at site. Administered Medications: 01:08 Drug: NS 0.9% 1000 ml Route: IV; Rate: 1 bolus; Site: right antecubital; 02:07 Follow up: Response: No adverse reaction; IV Status: Completed infusion 01:10 Drug: morphine 2 mg {Note: RASS 0.} Route: IVP; Site: right antecubital; 02:07 Follow up: Response: No adverse reaction; Pain is decreased; RASS: Alert and Calm (0) 01:12 Drug: Zofran (Ondansetron) 4 mg Route: IVP; Site: right antecubital; 02:07 Follow up: Response: No adverse reaction; Nausea is decreased 01:14 Drug: Pepcid (famotidine) 20 mg Route: IVP; Site: right antecubital; 02:07 Follow up: Response: No adverse reaction 03:45 Drug: Rocephin (cefTRIAXone) 1 grams Route: IV; Rate: per protocol; Site: right wh antecubital; 03:53 Follow up: Response: No adverse reaction; IV Status: Completed infusion Outcome: 03:51 Discharge ordered by . Eric 04:05 Discharged to home ambulatory. 04:05 Condition: stable 04:05 Discharge instructions given to patient, Instructed on discharge instructions, follow up and referral plans. medication usage, POC Demonstrated understanding of instructions, follow-up care, medications, POC Prescriptions given X 4. 04:08 Patient left the ED. Signatures: Dispatcher [employer] EDMS Negro Lieberman RN RN Osvaldo Lambert RN RN Joy Saucedo RN RN ap3 Dayanara Valencia Maurice, MD MD Eric Corrections: (The following items were deleted from the chart) 03:50 03:45 BP 125 / 73; Pulse 97bpm; Resp 18bpm; Pulse Ox 96% RA; wh wh
[2021-03-22] MEDS ORDERED: CEFTRIAXONE/SWI 1gm 1 GM/10 ML SYR ONE (04:01)
[2021-03-22 04:13] VITALS: TEMP 98
[2021-03-22 04:18] VITALS: BP 112/86; O2SAT 97
--- NOTE | 2021-03-22 22:02 | RAD REPORT ---
EXAM DESCRIPTION: CT - Abdomen Pelvis W Contrast - 03/22/2021 6:34 am COMPARISON: CT abdomen pelvis March 05, 2021 CLINICAL HISTORY: Abd pain;Nausea / vomiting TECHNIQUE: CT of the abdomen and pelvis was acquired with IV contrast material. Coronal and sagitt al reconstructions were obtained. Automated exposure control was utilized on this examination as a dose lowering technique. FINDINGS: Lung bases: Bibasilar atelectasis is present. Liver: Normal. Gallbladder and biliary: Cholecystectomy. Unremarkable biliary tree. Pancreas: Normal. Spleen: Normal. Adrenal glands: Normal adrenal glands. Kidneys: Normal kidneys. There is right periureteral fat stranding. Stomach and Small Bowel: The stomach and small bowel are normal. Urinary bladder: Normal. Uterus and Adnexa: Normal. Colon and Appendix: The colon is unremarkable. No evidence of appendicitis. Retroperitoneum and lymph nodes: Normal. Vascular: Normal. Peritoneal cavity: No ascites or free air. Musculoskeletal and soft tissues: Soft tissues are unremarkable. No aggressive bone lesions. No com pression fracture. IMPRESSION: Right periureteral fat stranding is present. No evidence of obstruction. This could be s een with recent stone passage or urinary tract infection. Electronically signed by: Nils Shepherd MD 03/22/2021 3:13 AM CDT Due to temporary technical issues with the PACS/Fluency reporting system, reports are being signed by the in house radiologists without review as a courtesy to insure prompt reporting. The interpreting radiologist is fully responsible for the content of the report.
== END 2021-03-22 04:08 | disposition home or self-care (01) ==
LOC: ER 22:26
DX: K52.9 Noninfective gastroenteritis and colitis, unspecified (principal); N39.0 Urinary tract infection, site not specified; E11.65 Type 2 diabetes mellitus with hyperglycemia; Z91.14 Patient's other noncompliance with medication regimen
CPT/HCPCS: 36415; 74177; 80048; 80076; 81003; 81015; 82947; 83690; 85025; 87086; 87088; 93005; 96361; 96374; 96375; 99284; J0696; J2270; J2405; J7030; Q9967

== ENCOUNTER 2021-04-09 00:03 | Emergency (ER) | payer SELFPAY ==
--- OUTSIDE RECORDS SUMMARY | 2021-04-09 00:06 | XMS REPORT | Continuity of Care Document ---
:1975 Author Organization [facility] t Address [address] [place] [address] Care Team Providers Name Role Phone Ninfa [...] Clinicians Facility Department ID 2020-04-08 2020-04-08 Letter [facility] [id number] 00:00:00 00:00:00 (Out) Mariama Martinez [id number] [place] [id number] [place] [address] [phone] [id number] 2020-04-08 2020-04-08 Letter [facility] [id number] 00:00:00 00:00:00 (Out) Mariama Martinez [id number] [place] [id number] [place] [address] [id number] [id number] 2020-04-08 2020-04-08 Letter [facility] [id number] 00:00:00 00:00:00 (Out) Mariama Martinez [id number] [place] [id number] [place] [address] [id number] [id number] 2020-04-05 2020-04-06 Emergency [facility] [id number] 23:30:47 02:43:00 Mariama Martinez [id number] [place] [id number] [place] [phone] [phone] Results This patient has no known results.
[2021-04-09 00:36] LABS: Urine Blood Negative (Negative); Urine Glucose Trace (Negative); Urine Protein Negative (Negative); Urine Specific Gravity 1.025 (1.005-1.030)
[2021-04-09] MEDS ORDERED: NA CHLORIDE 0.9% 1,000 ML ONE (00:51)
[2021-04-09 01:00] LABS: Urine Specific Gravity/Preg 1.025 (1.005-1.030)
[2021-04-09 01:04] LABS: Absolute Lymphocytes (CBC) 1.6 K/uL (0.7-4.9); Basophils % 0.9 % (0-1.3); Hematocrit 39.2 % (36.0-45.0); Lymphocytes % 19.9 % (15.3-44.8); MPV 10.7 fL (7.6-11.3); RBC Red Blood Cell Count 4.69 M/uL (3.86-4.86)
[2021-04-09] MEDS ORDERED: CEFTRIAXONE 1000 MG/VIAL ONE (01:30)
[2021-04-09] MEDS ORDERED: MORPHINE 4 MG/ML SYR ONE (01:30)
[2021-04-09] MEDS ORDERED: ONDANSETRON 4 MG/2 ML VIAL ONE (01:30)
[2021-04-09] MEDS ORDERED: NA CHLORIDE 0.9% 50 ML ONE (01:31)
[2021-04-09] MEDS ORDERED: FAMOTIDINE 20 MG/2 ML VIAL IV ONE (01:31)
[2021-04-09 01:58] LABS: Albumin 3.7 g/dL (3.4-5.0); Bilirubin Direct 0.1 mg/dL (0-0.2); Bilirubin Total 0.6 mg/dL (0.2-1.0); Protein, Total 7.9 g/dL (6.4-8.2)
[2021-04-09 02:02] LABS: Potassium 4.3 mmol/L (3.5-5.1)
[2021-04-09 02:55] LABS: Blood Morphology Comment NOT SEEN (NOT SEEN); Platelet Estimate ADEQ; White Blood Cell Scan OK (OK)
--- NOTE | 2021-04-09 03:16 | ER ---
Nurse's Notes [facility] Name: Chelsie Zaragoza Age: 46 yrs Sex: Female : 1975 Arrival Date: 04/09/2021 Time: 00:06 Bed 14 Private MD: Diagnosis: Acute cystitis Presentation: 04/09 00:18 Chief complaint: Patient states: lower quad. abdominal pain that started today, also em reports N/V, denies fever or diarrhea. Coronavirus screen: Client denies travel out of the [place] in the last 14 days. Ebola Screen: Patient negative for fever greater than or equal to 101.5 degrees Fahrenheit, and additional compatible Ebola Virus Disease symptoms Patient denies exposure to infectious person. Patient denies travel to an Ebola-affected area in the 21 days before illness onset. No symptoms or risks identified at this time. Initial Sepsis Screen: Does the patient meet any 2 criteria? No. Patient's initial sepsis screen is negative. Does the patient have a suspected source of infection? No. Patient's initial sepsis screen is negative. Risk Assessment: Do you want to hurt yourself or someone else? Patient reports no desire to harm self or others. Onset of symptoms was April 09, 2021. 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 - Social history:: Smoking status: Patient denies any tobacco usage or history of. - Family history:: not pertinent. Screenin:06 Abuse screen: Denies threats or abuse. Denies injuries from another. Nutritional ad5 screening: No deficits noted. Tuberculosis screening: No symptoms or risk factors identified. Fall Risk None identified. Assessment: 01:04 General: Appears uncomfortable, Behavior is calm, cooperative, appropriate for age. ad5 Pain: Complains of pain in osiel lower abd and osiel lower back. Neuro: No deficits noted. Level of Consciousness is awake, alert, obeys commands, Oriented to person, place, time, situation, Appropriate for age. Cardiovascular: No deficits noted. Capillary refill < 3 seconds Patient's skin is warm and dry. Respiratory: No deficits noted. Airway is patent Respiratory effort is even, unlabored, Respiratory pattern is regular, symmetrical. GI: Bowel sounds present X 4 quads. Abd is soft and non tender Reports lower abdominal pain, nausea, vomiting. : No deficits noted. No signs and/or symptoms were reported regarding the genitourinary system. Derm: Skin is pink, warm \T\ dry. 02:07 Reassessment: Patient and/or family updated on plan of care and expected duration. Pain ad5 level reassessed. Patient is alert, oriented x 3, equal unlabored respirations, skin warm/dry/pink. Patient states symptoms have improved. 03:15 Reassessment: Patient appears in no apparent distress at this time. No changes from ad5 previously documented assessment. Patient is alert, oriented x 3, equal unlabored respirations, skin warm/dry/pink. Vital Signs: 00:18 BP 119 / 91; Pulse 102; Resp 20; Temp 97.1; Pulse Ox 99% on R/A; Weight 85.73 kg; em Height 5 ft. 5 in. (165.10 cm); Pain 8/10; 01:18 BP 100 / 73; Pulse 87; Resp 18 S; Pulse Ox 99% on R/A; ad5 02:30 BP 105 / 81; Pulse 83; Resp 16 S; Pulse Ox 98% on R/A; ad5 03:25 BP 107 / 64; Pulse 79; Resp 16 S; Pulse Ox 98% on R/A; ad5 00:18 Body Mass Index 31.45 (85.73 kg, 165.10 cm) em ED Course: 00:06 Patient arrived in ED. cf2 00:19 Triage completed. em 00:19 Arm band placed on. em 00:25 Taty Villegas MD is Attending Physician. ma2 00:29 Jaime Mallory is Primary Nurse. ad5 00:50 Initial lab(s) drawn, by me, sent to lab. Inserted saline lock: 20 gauge in left tt3 antecubital area, using aseptic technique. Blood collected. 01:06 Patient has correct armband on for positive identification. Bed in low position. Call ad5 light in reach. Side rails up X 1. Pulse ox on. NIBP on. Door closed. Noise minimized. Lights dimmed. Warm blanket given. Head of bed lowered. 02:24 CT Abd/Pelvis - IV Contrast Only In Process Unspecified. EDMS 03:53 No provider procedures requiring assistance completed. IV discontinued, intact, ad5 bleeding controlled, No redness/swelling at site. Pressure dressing applied. Administered Medications: 00:47 Drug: NS 0.9% 1000 ml Route: IV; Rate: 1 bolus; Site: left antecubital; ad5 01:47 Follow up: IV Status: Completed infusion; IV Intake: 1000ml ad5 01:15 Drug: Pepcid (famotidine) 20 mg Route: IVP; Site: left antecubital; ad5 01:47 Follow up: Response: No adverse reaction ad5 01:18 Drug: morphine 4 mg {Note: RASS 0.} Route: IVP; Site: left antecubital; ad5 01:47 Follow up: Response: No adverse reaction; RASS: Alert and Calm (0) ad5 01:18 Drug: Zofran (Ondansetron) 4 mg Route: IVP; Site: left antecubital; ad5 01:47 Follow up: Response: No adverse reaction ad5 01:18 Drug: Rocephin (cefTRIAXone) 1 grams Route: IV; Rate: calculated rate; Site: left ad5 antecubital; 01:47 Follow up: IV Status: Completed infusion ad5 Intake: 01:47 IV: 1000ml; Total: 1000ml. ad5 Outcome: 03:15 Discharge ordered by MD. dacosta 03:53 Discharged to home ambulatory. ad5 03:53 Condition: stable 03:53 Discharge instructions given to patient, Instructed on discharge instructions, follow up and referral plans. medication usage, Demonstrated understanding of instructions, follow-up care, medications, Prescriptions given X 3. 03:54 Patient left the ED. ad5 Signatures: Dispatcher [employer] EDMS Negro Lieberman RN RN Taty Salas MD MD ma2 Frazier, [place] cf2 Reggie Dowlnig3 Jaime Mallory ad5
--- NOTE | 2021-04-09 03:16 | EDPHYS ---
Physician Documentation [facility] Name: Chelsie Zaragoza Age: 46 yrs Sex: Female : 1975 Arrival Date: 04/09/2021 Time: 00:06 Bed 14 Private MD: ED Physician Taty Villegas HPI: 04/09 00:58 This 46 yrs old Female presents to ER via Ambulatory with complaints of ma2 Abdominal Pain, Back Pain. 00:58 The patient presents with pain that is acute. Onset: The symptoms/episode ma2 began/occurred gradually, 2 day(s) ago. Associated signs and symptoms: Pertinent negatives: chest pain, dysuria, headache, hematuria, nausea, weakness. Severity of symptoms: At their worst the symptoms were moderate, in the emergency department the symptoms are unchanged. The patient has experienced similar episodes in the past. 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 - Social history:: Smoking status: Patient denies any tobacco usage or history of. - Family history:: not pertinent. ROS: 00:58 Constitutional: Negative for fever, chills, and weight loss. ma2 00:58 All other systems are negative. Exam: 00:58 Constitutional: This is a well developed, well nourished patient who is awake, alert, ma2 and in no acute distress. Head/Face: Normocephalic, atraumatic. Eyes: Pupils equal round and reactive to light, extra-ocular motions intact. Lids and lashes normal. Conjunctiva and sclera are non-icteric and not injected. Cornea within normal limits. Periorbital areas with no swelling, redness, or edema. ENT: Nares patent. No nasal discharge, no septal abnormalities noted. Tympanic membranes are normal and external auditory canals are clear. Oropharynx with no redness, swelling, or masses, exudates, or evidence of obstruction, uvula midline. Mucous membranes moist. Neck: Trachea midline, no thyromegaly or masses palpated, and no cervical lymphadenopathy. Supple, full range of motion without nuchal rigidity, or vertebral point tenderness. No Meningismus. Chest/axilla: Normal chest wall appearance and motion. Nontender with no deformity. No lesions are appreciated. Cardiovascular: Regular rate and rhythm with a normal S1 and S2. No gallops, murmurs, or rubs. Normal PMI, no JVD. No pulse deficits. Respiratory: Lungs have equal breath sounds bilaterally, clear to auscultation and percussion. No rales, rhonchi or wheezes noted. No increased work of breathing, no retractions or nasal flaring. Abdomen/GI: Soft, non-tender, with normal bowel sounds. No distension or tympany. No guarding or rebound. No evidence of tenderness throughout. Back: No spinal tenderness. No costovertebral tenderness. Full range of motion. Skin: Warm, dry with normal turgor. Normal color with no rashes, no lesions, and no evidence of cellulitis. MS/ Extremity: Pulses equal, no cyanosis. Neurovascular intact. Full, normal range of motion. Neuro: Awake and alert, GCS 15, oriented to person, place, time, and situation. Cranial nerves II-XII grossly intact. Motor strength 5/5 in all extremities. Sensory grossly intact. Cerebellar exam normal. Normal gait. Vital Signs: 00:18 BP 119 / 91; Pulse 102; Resp 20; Temp 97.1; Pulse Ox 99% on R/A; Weight 85.73 kg; em Height 5 ft. 5 in. (165.10 cm); Pain 8/10; 01:18 BP 100 / 73; Pulse 87; Resp 18 S; Pulse Ox 99% on R/A; ad5 02:30 BP 105 / 81; Pulse 83; Resp 16 S; Pulse Ox 98% on R/A; ad5 03:25 BP 107 / 64; Pulse 79; Resp 16 S; Pulse Ox 98% on R/A; ad5 00:18 Body Mass Index 31.45 (85.73 kg, 165.10 cm) em MDM: 00:58 Differential diagnosis: gastritis, vs appendicitis vs gall bladder stone vs ibs. [facility] 03:15 Data reviewed: vital signs, nurses notes. Counseling: I had a detailed discussion with [facility] the patient and/or guardian regarding: the historical points, exam findings, and any diagnostic results supporting the discharge/admit diagnosis, the presence of at least one elevated blood pressure reading (>120/80) during this emergency department visit, the need for outpatient follow up. Response to treatment: the patient's symptoms have resolved after treatment. 03:15 Patient medically screened. ca2 04/09 00:25 Order name: Basic Metabolic Panel; Complete Time: 02:43 ma2 04/09 00:25 Order name: CBC with Diff; Complete Time: 03:00 ma2 04/09 00:25 Order name: Hepatic Function; Complete Time: 02:43 ma2 04/09 00:25 Order name: Lipase; Complete Time: 02:43 ma2 04/09 00:35 Order name: Urine Dipstick-Ancillary; Complete Time: 00:53 EDMS 04/09 00:49 Order name: Urine --Ancillary (enter results); Complete Time: 02:43 tt3 04/09 00:25 Order name: IV Saline Lock; Complete Time: 00:46 ma2 04/09 00:53 Order name: CT Abd/Pelvis - IV Contrast Only ca2 04/09 02:02 Order name: CBC Smear Scan; Complete Time: 03:00 EDMS 04/09 00:25 Order name: Labs collected and sent; Complete Time: 00:46 ma2 04/09 00:25 Order name: Urine Dipstick-Ancillary (obtain specimen) ma2 Administered Medications: 00:47 Drug: NS 0.9% 1000 ml Route: IV; Rate: 1 bolus; Site: left antecubital; ad5 01:47 Follow up: IV Status: Completed infusion; IV Intake: 1000ml ad5 01:15 Drug: Pepcid (famotidine) 20 mg Route: IVP; Site: left antecubital; ad5 01:47 Follow up: Response: No adverse reaction ad5 01:18 Drug: morphine 4 mg {Note: RASS 0.} Route: IVP; Site: left antecubital; ad5 01:47 Follow up: Response: No adverse reaction; RASS: Alert and Calm (0) ad5 01:18 Drug: Zofran (Ondansetron) 4 mg Route: IVP; Site: left antecubital; ad5 01:47 Follow up: Response: No adverse reaction ad5 01:18 Drug: Rocephin (cefTRIAXone) 1 grams Route: IV; Rate: calculated rate; Site: left ad5 antecubital; 01:47 Follow up: IV Status: Completed infusion ad5 Disposition Summary: 04/09/21 03:15 Discharge Ordered Location: Home ma2 Condition: Stable ma2 Diagnosis - Acute cystitis ma2 Followup: ma2 - With: Private Physician - When: Tomorrow - Reason: If symptoms return Discharge Instructions: - Discharge Summary Sheet ma2 - Urinary Tract Infection, Adult, [id number] ma2 Forms: - Medication Reconciliation Form ma2 - Thank You Letter ma2 - Antibiotic Education ma2 - Prescription Opioid Use ma2 - Work release form ad5 Prescriptions: - Bactrim DS 800-160 mg Oral Tablet - take 1 tablet by ORAL route every 12 hours for 5 days; 10 tablet; Refills: 0, ma2 Product Selection Permitted - Pepcid 20 mg Oral Tablet - take 1 tablet by ORAL route every 12 hours for 10 days; 20 tablet; Refills: 0, ma2 Product Selection Permitted - Zofran 4 mg Oral Tablet - take 1 tablet by ORAL route every 12 hours As needed; 20 tablet; Refills: 0, ma2 Product Selection Permitted Signatures: Dispatcher [employer] Negro Concepcion, JOSS RN Taty Villegas MD MD ma2 Jaime Mallory ad5
[2021-04-09 04:13] VITALS: TEMP 97.1
[2021-04-09 04:21] VITALS: O2SAT 98
[2021-04-09 04:23] VITALS: BP 107/64
--- NOTE | 2021-04-09 13:29 | RAD REPORT ---
EXAM DESCRIPTION: CT - Abdomen Pelvis W Contrast - 04/09/2021 6:30 am CLINICAL HISTORY: The patient is 46 years old and is Female; ABD PAIN TECHNIQUE: Axial computed tomography images of the abdomen and pelvis with intravenous contrast. S agittal and coronal reformatted images were created and reviewed. This CT exam was performed using one or more of the following dose reduction techniques: automated exposure control, adjustment of t he mA and/or kV according to patient size, and/or use of iterative reconstruction technique. COMPARISON: CT abdomen and pelvis March 22, 2021. FINDINGS: Lung bases: Unremarkable. No mass. No consolidation. ABDOMEN: Liver: Unremarkable. No mass. Gallbladder and bile ducts: Gallbladder is surgically absent. No ductal dilation. Pancreas: Unremarkable. No mass. No ductal dilation. Spleen: Unremarkable. No splenomegaly. Adrenals: Unremarkable. No mass. Kidneys and ureters: Unremarkable. No solid mass. No hydronephrosis. Stomach and bowel: Unremarkable. No obstruction. No mucosal thickening. PELVIS: Appendix: No findings to suggest acute appendicitis. Bladder: Unremarkable. No mass. Reproductive: Unremarkable as visualized. ABDOMEN and PELVIS: Intraperitoneal space: Unremarkable. No free air. No significant fluid collection. Bones/joints: No acute fracture. No dislocation. Soft tissues: Unremarkable. Vasculature: Unremarkable. No abdominal aortic aneurysm. Lymph nodes: Unremarkable. No enlarged lymph nodes. IMPRESSION: No acute findings in the abdomen or pelvis. Electronically signed by: Cameron Armenta MD 04/09/2021 3:02 AM CDT Due to temporary technical issues with the PACS/Fluency reporting system, reports are being signed by the in house radiologists without review as a courtesy to insure prompt reporting. The interpreting radiologist is fully responsible for the content of the report.
== END 2021-04-09 03:54 | disposition home or self-care (01) ==
LOC: ER 00:03
DX: N30.00 Acute cystitis without hematuria (principal)
CPT/HCPCS: 36415; 74177; 80048; 80076; 81003; 81025; 83690; 85025; J2405; J7030; Q9967

== ENCOUNTER 2021-04-16 15:14 | Emergency (ER) | payer SELFPAY ==
--- OUTSIDE RECORDS SUMMARY | 2021-04-16 15:31 | XMS REPORT | Continuity of Care Document ---
:1975 Author Organization [facility] t Address [address] [place] [address] Care Team Providers Name Role Phone Ninfa [...] Clinicians Facility Department ID 2020-04-08 2020-04-08 Letter [facility] [id number] 00:00:00 00:00:00 (Out) Mariama Maritnez [id number] [place] [id number] [place] [address] [phone] [id number] 2020-04-08 2020-04-08 Letter [facility] [id number] 00:00:00 00:00:00 (Out) Mariama Martinez [id number] [place] [id number] [place] [address] [id number] 2020-04-08 2020-04-08 Letter [facility] [id number] 00:00:00 00:00:00 (Out) Mariama Martinez [id number] [place] [id number] [place] [address] [phone] [id number] 2020-04-05 2020-04-06 Emergency [facility] [id number] 23:30:47 02:43:00 Mariama Martinez [id number] [place] [id number] [place] [phone] [id number] Results This patient has no known results.
[2021-04-16] MEDS ORDERED: NA CHLORIDE 0.9% 1,000 ML ONE (17:19)
[2021-04-16 17:21] LABS: Basophils % 0.9 % (0-1.3); Hematocrit 43.7 % (36.0-45.0); Lymphocytes % 25.5 % (15.3-44.8); MPV 10.4 fL (7.6-11.3); RBC Red Blood Cell Count 5.24 M/uL (3.86-4.86)
[2021-04-16 17:22] LABS: Urine Blood Negative (Negative); Urine Glucose 3+ (Negative); Urine Protein Negative (Negative); Urine Specific Gravity 1.025 (1.005-1.030)
[2021-04-16 17:39] LABS: Potassium 4.6 mmol/L (3.5-5.1)
[2021-04-16 17:42] LABS: Urine Bacteria <20 /HPF (<20); Urine RBC <5 /HPF (NONE SEEN)
[2021-04-16] MEDS ORDERED: ONDANSETRON 4 MG/2 ML VIAL ONE (17:43)
[2021-04-16 17:52] LABS: Urine Specific Gravity/Preg 1.025 (1.005-1.030)
--- NOTE | 2021-04-16 18:12 | RAD REPORT ---
EXAM DESCRIPTION: CT - Abdomen Pelvis Wo Contrast - 04/16/2021 6:01 pm CLINICAL HISTORY: Abdominal pain COMPARISON: April 09, 2021 TECHNIQUE: Computed axial tomography of the abdomen and pelvis was obtained. IV and oral contrast we re not requested. All CT scans are performed using dose optimization technique as appropriate and may include automated exposure control or mA/KV adjustment according to patient size. FINDINGS: The evaluation of solid organs, vessels and bowel is limited secondary to the lack of con trast administration. The liver, spleen, pancreas, adrenals and kidneys appear grossly normal. The appendix is normal. There is no evidence of diverticulitis. Small umbilical hernia. Cholecystectomy IMPRESSION: No acute abnormality is displayed.
--- NOTE | 2021-04-16 18:23 | ER ---
Nurse's Notes [facility] Name: Chelsie Zaragoza Age: 46 yrs Sex: Female : 1975 Arrival Date: 04/16/2021 Time: 15:16 Bed 14 Private MD: Diagnosis: Right Flank Pain Presentation: 04/16 15:35 Chief complaint: Patient states: Chills, R lower back pain, N/V started today. On ll1 antibiotic for UTI, almost done. Feels like UTI is getting better overall. Coronavirus screen: Client denies travel out of the [place] in the last 14 days. At this time, the client does not indicate any symptoms associated with coronavirus-19. Ebola Screen: Patient denies travel to an Ebola-affected area in the 21 days before illness onset. Initial Sepsis Screen: Does the patient meet any 2 criteria? HR > 90 bpm. No. Patient's initial sepsis screen is negative. Does the patient have a suspected source of infection? Yes: Dysuria/Frequency/Urgency/UTI Acute abdominal pain. Risk Assessment: Do you want to hurt yourself or someone else? Patient reports no desire to harm self or others. Onset of symptoms was April 16, 2021. 15:35 Method Of Arrival: Ambulatory ll1 15:35 Acuity: YANNA 3 ll1 Historical: - Allergies: 15:37 No Known Allergies; ll1 - PMHx: 15:37 Diabetes - NIDDM; Pneumonia; ll1 - PSHx: 15:37 None; ll1 - Immunization history:: Flu vaccine is not up to date. - Social history:: Smoking status: Patient denies any tobacco usage or history of. Screenin:49 Abuse screen: Denies threats or abuse. Nutritional screening: No deficits noted. tw2 Tuberculosis screening: No symptoms or risk factors identified. Fall Risk None identified. Assessment: 16:49 Reassessment: provider at bedside at this time. tw2 17:00 General: Appears in no apparent distress. uncomfortable, well groomed, Behavior is tw2 calm, cooperative, appropriate for age. Pain: Complains of pain in right flank. Neuro: Level of Consciousness is awake, alert, obeys commands, Oriented to person, place, time, situation. Cardiovascular: Cardiovascular: Patient's skin is warm and dry. Respiratory: Airway is patent Respiratory effort is even, unlabored, Respiratory pattern is regular, symmetrical. GI: Abdomen is flat, Reports nausea. : Reports taking antibiotics for UTI but not improving. EENT: No signs and/or symptoms were reported regarding the EENT system. Derm: No signs and/or symptoms reported regarding the dermatologic system. Musculoskeletal: Range of motion: intact in all extremities. 17:28 Reassessment: charge nurse JOSS Falk able to get iv, returned to exam room with freddy Spaulding pt on phone, will not straighten arm at this time for medication admin. 18:11 Reassessment: pt back from CT at this time, iv infiltrated, cementer machine Jauna removed tw2 pts iv to right AC, gauze and coban applied. 18:30 Reassessment: Patient appears in no apparent distress at this time. Patient and/or tw2 family updated on plan of care and expected duration. Pain level reassessed. Patient is alert, oriented x 3, equal unlabored respirations, skin warm/dry/pink. Vital Signs: 15:35 BP 142 / 92; Pulse 100; Resp 17; Temp 97.3; Pulse Ox 98% ; Weight 85.73 kg; Height 5 ll1 ft. 5 in. (165.10 cm); Pain 7/10; 18:15 BP 118 / 82; Pulse 83; Resp 17; Pulse Ox 98% on R/A; tw2 15:35 Body Mass Index 31.45 (85.73 kg, 165.10 cm) ll1 ED Course: 15:16 Patient arrived in ED. ds1 15:37 Triage completed. ll1 15:37 Arm band placed on. ll1 15:43 [facility]C [facility] kb 15:43 Jorge Kim MD is Attending Physician. kb 16:45 Patient placed in an exam room, on a stretcher. ll1 16:49 Jaclyn Marte RN is Primary Nurse. tw2 16:49 Bed in low position. Call light in reach. Pulse ox on. NIBP on. tw2 17:10 Missed attempt(s): 20 gauge in left antecubital area. blood collected. Bleeding tw2 controlled, band aid applied, catheter tip intact. Missed attempt(s): 22 gauge in right antecubital area. provider charge nurse Deya,RN notified of need for IV. Bleeding controlled, band aid applied, catheter tip intact. 17:22 Urine Microscopic Only Sent. tw2 18:01 Abdomen In Process Unspecified. EDMS 18:30 No provider procedures requiring assistance completed. IV discontinued, intact, tw2 bleeding controlled, No redness/swelling at site. Pressure dressing applied. Administered Medications: 17:46 Drug: NS 0.9% 1000 ml Route: IV; Rate: 1000 ml; Site: right antecubital; tw2 18:12 Follow up: Response: No adverse reaction; IV Status: IV infiltrated tw2 17:46 Drug: Zofran (Ondansetron) 4 mg Route: IVP; Site: left antecubital; tw2 18:00 Follow up: Response: No adverse reaction; Nausea is decreased tw2 Outcome: 18:22 Discharge ordered by . kb 18:30 Patient left the ED. ca1 18:30 Discharged to home ambulatory. tw2 18:30 Condition: stable 18:30 Discharge instructions given to patient, Instructed on discharge instructions, follow up and referral plans. Demonstrated understanding of instructions, follow-up care. Signatures: Dispatcher [employer] EDMS Natty Unger, PRINT LINE SUPERVISOR-C PRINT LINE SUPERVISOR-Ckb Judy Sweet ds1 Jaclyn Marte RN RN tw2 Glendy Nunez RN RN ca1 Lora Flores RN RN ll1 Corrections: (The following items were deleted from the chart) 15:37 15:37 PMHx: GALLSTONES; ll1 ll1
--- NOTE | 2021-04-16 18:23 | EDPHYS ---
Physician Documentation [facility] Name: Chelsie Zaragoza Age: 46 yrs Sex: Female : 1975 Arrival Date: 04/16/2021 Time: 15:16 Bed 14 Private MD: ED Physician Jorge Kim HPI: 04/16 17:00 This 46 yrs old Female presents to ER via Ambulatory with complaints of Low kb Back Pain, Vomiting. 17:00 The patient complains of pain in the right flank. The pain does not radiate. Onset: The kb symptoms/episode began/occurred today. Modifying factors: The symptoms are alleviated by nothing. the symptoms are aggravated by nothing. Associated signs and symptoms: Pertinent positives: urinary frequency, nausea, vomiting. Severity of pain: At its worst the pain was moderate in the emergency department the pain is unchanged. The patient has experienced similar episodes in the past, a few times. The patient has been recently seen at the [facility] Emergency Department, last week. Pt was diagnosed with UTI on 04/09/21 and started Bactrim. States today she broke into a sweat, had nausea and vomiting and right flank pain. Historical: - Allergies: 15:37 No Known Allergies; ll1 - PMHx: 15:37 Diabetes - NIDDM; Pneumonia; ll1 - PSHx: 15:37 None; ll1 - Immunization history:: Flu vaccine is not up to date. - Social history:: Smoking status: Patient denies any tobacco usage or history of. ROS: 17:00 Constitutional: Negative for fever, chills, and weight loss. kb 17:00 Abdomen/GI: Positive for nausea and vomiting, Negative for abdominal pain. 17:00 Back: Positive for flank pain. 17:00 : Positive for urinary frequency. 17:00 All other systems are negative. Exam: 17:02 Constitutional: This is a well developed, well nourished patient who is awake, alert, kb and in no acute distress. Head/Face: Normocephalic, atraumatic. Chest/axilla: Normal chest wall appearance and motion. Cardiovascular: Regular rate and rhythm with a normal S1 and S2. No gallops, murmurs, or rubs. No pulse deficits. Respiratory: Respirations even and unlabored. No increased work of breathing, no retractions or nasal flaring. Skin: Warm, dry with normal turgor. Normal color. MS/ Extremity: Pulses equal, no cyanosis. Neurovascular intact. Full, normal range of motion. Neuro: Awake and alert, GCS 15, oriented to person, place, time, and situation. Moves all extremities. Normal gait. Psych: Awake, alert, with orientation to person, place and time. Behavior, mood, and affect are within normal limits. 17:02 Abdomen/GI: Inspection: abdomen appears normal, Bowel sounds: normal, in all quadrants, Palpation: soft, in all quadrants, mild abdominal tenderness, in all quadrants. 17:02 Back: CVA tenderness, that is moderate, is noted on the right. Vital Signs: 15:35 BP 142 / 92; Pulse 100; Resp 17; Temp 97.3; Pulse Ox 98% ; Weight 85.73 kg; Height 5 ll1 ft. 5 in. (165.10 cm); Pain 7/10; 18:15 BP 118 / 82; Pulse 83; Resp 17; Pulse Ox 98% on R/A; tw2 15:35 Body Mass Index 31.45 (85.73 kg, 165.10 cm) ll1 MDM: 16:46 Patient medically screened. kb 16:59 Data reviewed: vital signs, nurses notes. Data interpreted: Pulse oximetry: on room air kb is 98 %. Interpretation: normal. 18:18 Counseling: I had a detailed discussion with the patient and/or guardian regarding: the kb historical points, exam findings, and any diagnostic results supporting the discharge/admit diagnosis, lab results, radiology results, the need for outpatient follow up, a family practitioner, to return to the emergency department if symptoms worsen or persist or if there are any questions or concerns that arise at home. 04/16 15:47 Order name: Urine Microscopic Only kb 04/16 15:48 Order name: Urine Microscopic Only; Complete Time: 17:53 EDMS 04/16 16:52 Order name: Basic Metabolic Panel; Complete Time: 17:40 kb 04/16 16:52 Order name: CBC with Diff; Complete Time: 17:29 kb 04/16 17:22 Order name: Urine Dipstick-Ancillary; Complete Time: 17:26 EDMS 04/16 17:24 Order name: Urine --Ancillary (enter results); Complete Time: 17:53 eb 04/16 15:47 Order name: Urine Dipstick-Ancillary (obtain specimen); Complete Time: 17:22 kb 04/16 15:47 Order name: Urine Test (obtain specimen); Complete Time: 17:22 kb 04/16 16:52 Order name: Labs collected and sent; Complete Time: 17:22 kb 04/16 18:01 Order name: Abdomen ; Complete Time: 18:17 EDMS Administered Medications: 17:46 Drug: NS 0.9% 1000 ml Route: IV; Rate: 1000 ml; Site: right antecubital; tw2 18:12 Follow up: Response: No adverse reaction; IV Status: IV infiltrated tw2 17:46 Drug: Zofran (Ondansetron) 4 mg Route: IVP; Site: left antecubital; tw2 18:00 Follow up: Response: No adverse reaction; Nausea is decreased tw2 Disposition: 19:06 Co-signature as Attending Physician, Jorge Kim MD I agree with the assessment and kdr plan of care. Disposition Summary: 04/16/21 18:22 Discharge Ordered Location: Home kb Condition: Stable kb Diagnosis - Right Flank Pain kb Followup: kb - With: Emergency Department - When: As needed - Reason: Worsening of condition Followup: kb - With: Private Physician - When: 2 - 3 days - Reason: Recheck today's complaints, Continuance of care, Re-evaluation by your physician Discharge Instructions: - Discharge Summary Sheet kb - Flank Pain, Adult, [id number] kb Forms: - Medication Reconciliation Form kb - Thank You Letter kb - Antibiotic Education kb - Work release form kb - Prescription Opioid Use kb Signatures: Dispatcher [employer] EDMS Natty Unger, CLAIM CLINICIAN-C CLAIM CLINICIAN-CkJorge Chaidez MD MD kdr Jaclyn Marte RN RN tw2 Lora Flores RN RN ll1 Corrections: (The following items were deleted from the chart) 15:37 15:37 PMHx: GALLSTONES; ll1 ll1 18:01 16:53 Abdomen Pelvis W Con+CT.RAD.BRZ ordered. EDMS EDMS
[2021-04-16 18:52] VITALS: BP 142/92; TEMP 97.3; O2SAT 98
== END 2021-04-16 18:30 | disposition home or self-care (01) ==
LOC: ER 15:14
DX: R10.9 Unspecified abdominal pain (principal); R11.2 Nausea with vomiting, unspecified; E11.9 Type 2 diabetes mellitus without complications
CPT/HCPCS: 36415; 74176; 80048; 81003; 81015; 81025; 85025; 96374; 99284; J2405; J7030

== ENCOUNTER 2021-06-12 21:28 | Emergency (ER) | payer SELFPAY ==
--- OUTSIDE RECORDS SUMMARY | 2021-06-12 21:31 | XMS REPORT | Continuity of Care Document ---
:1975 Author Organization [facility] t Address [address] [place] [address] Care Team Providers Name Role Phone Ninfa [...] Clinicians Facility Department ID 2020-04-08 2020-04-08 Letter [facility] [id number] 00:00:00 00:00:00 (Out) Mariama Martinez [id number] [place] [id number] [place] [address] [phone] [phone] 2020-04-08 Letter [facility] [id number] 00:00:00 00:00:00 (Out) Mariama Martinez [id number] [place] [id number] [place] [address] [phone] 2020-04-08 2020-04-08 Letter [facility] [id number] 00:00:00 00:00:00 (Out) Mariama Martinez [id number] [place] [id number] [place] [address] [phone] 2020-04-05 2020-04-06 Emergency [facility] [id number] 23:30:47 02:43:00 Mariama Martinez [id number] [place] [id number] [place] [phone] Results This patient has no known results.
[2021-06-12 22:47] LABS: Potassium 4.4 mmol/L (3.5-5.1)
--- NOTE | 2021-06-12 22:55 | ER ---
Nurse's Notes [facility] Name: Chelsie Zaragoza Age: 46 yrs Sex: Female : 1975 Arrival Date: 06/12/2021 Time: 21:30 Bed Waiting Private MD: Diagnosis: Presentation: 06/12 21:37 Chief complaint: Patient states: Tingling and stabbing pain in both arms that goes down kg to both legs x 1 month. Coronavirus screen: Vaccine status: Patient reports being unvaccinated. Client denies travel out of the [place] in the last 14 days. At this time, unable to obtain information related to travel outside the [place] At this time, the client does not indicate any symptoms associated with coronavirus-19. Ebola Screen: Patient negative for fever greater than or equal to 101.5 degrees Fahrenheit, and additional compatible Ebola Virus Disease symptoms Patient denies exposure to infectious person. Patient denies travel to an Ebola-affected area in the 21 days before illness onset. Initial Sepsis Screen: Does the patient meet any 2 criteria? No. Patient's initial sepsis screen is negative. Does the patient have a suspected source of infection? No. Patient's initial sepsis screen is negative. Risk Assessment: Do you want to hurt yourself or someone else? Patient reports no desire to harm self or others. Onset of symptoms is unknown. 21:37 Method Of Arrival: Ambulatory kg 21:37 Acuity: YANNA 4 kg Triage Assessment: 21:40 General: Appears in no apparent distress. Behavior is calm, cooperative, appropriate kg for age, quiet. Pain: Complains of pain in right arm, left arm, right leg and left leg. 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 - Social history:: Smoking status: Patient denies any tobacco usage or history of. Patient uses. Screenin:41 Abuse screen: Denies threats or abuse. Denies injuries from another. Nutritional kg screening: No deficits noted. Tuberculosis screening: No symptoms or risk factors identified. Fall Risk None identified. Assessment: 22:52 Reassessment: Pulled patient back to triage to start IV and do lab work. IV and lab kg work attempt unsuccessful. Pt stated, "I'm just going to go home. If yall cant get it right, I'm just going to go home." . Vital Signs: 21:37 BP 118 / 84; Pulse 98; Resp 20; Temp 96.7(TE); Pulse Ox 98% on R/A; Weight 89.18 kg kg (R); Height 5 ft. 5 in. (165.10 cm); Pain 9/10; 21:37 Body Mass Index 32.72 (89.18 kg, 165.10 cm) kg ED Course: 21:30 Patient arrived in ED. wm 21:40 Triage completed. kg 21:40 Arm band placed on right wrist. kg 21:41 Patient has correct armband on for positive identification. kg 22:00 Initial lab(s) drawn, by me, sent to lab. Missed attempt(s): 22 gauge in right tt3 antecubital area. Administered Medications: No medications were administered Outcome: 22:54 Patient left the ED. kg Signatures: Reggie Dowling tt3 Aminata Gil, RN RN kg Kailee Gomez wm
[2021-06-12 23:10] VITALS: BP 118/84; TEMP 96.7; O2SAT 98
== END 2021-06-12 22:54 | disposition left against medical advice (07) ==
LOC: ER 21:28
DX: Z53.21 Procedure and treatment not carried out due to patient leaving prior to being seen by health care provider (principal)
CPT/HCPCS: 80048; 99282

== ENCOUNTER 2021-06-13 07:41 | Emergency (ER) | payer SELFPAY ==
--- OUTSIDE RECORDS SUMMARY | 2021-06-13 07:44 | XMS REPORT | Continuity of Care Document ---
:1975 Author Organization [facility] t Address [address] [place] [address] Care Team Providers Name Role Phone Ninfa [...] Clinicians Facility Department ID 2020-04-08 2020-04-08 Letter [facility] [id number] 00:00:00 00:00:00 (Out) Mariama Martinez [id number] [place] [id number] [place] [address] [phone] 2020-04-08 2020-04-08 Letter [facility] [id number] 00:00:00 00:00:00 (Out) Mariama Martinez [id number] [place] [id number] [place] [address] [phone] 2020-04-08 2020-04-08 Letter [facility] [id number] 00:00:00 00:00:00 (Out) Mariama Martinez [id number] [place] [id number] [place] [address] [phone] 2020-04-05 2020-04-06 Emergency [facility] [id number] 23:30:47 02:43:00 Mariama Martinez [id number] [place] [id number] [place] [phone] Results This patient has no known results.
--- NOTE | 2021-06-13 08:16 | EDPHYS ---
Physician Documentation [facility] Name: Chelsie Zaragoza Age: 46 yrs Sex: Female : 1975 Arrival Date: 06/13/2021 Time: 07:43 Bed 10 Private MD: ED Physician Taty Villegas HPI: 06/13 08:10 This 46 yrs old Female presents to ER via Ambulatory with complaints of ma2 Numbness Of Arm, Numbness Of Hand, Numbness - legs. 08:10 The patient or guardian complains of numbness, pin and needles in all 4 extremities, ma2 intermittent for 2 months, diagnosed with dm, not taking any medicine, was here last night bs was 400, she left without being seen. . Onset: The symptoms/episode began/occurred gradually, 2 month(s) ago. Associated signs and symptoms: Pertinent positives: tingling, Pertinent negatives: fever, pain, swelling, vomiting. Severity of symptoms: At their worst the symptoms were very mild, in the emergency department the symptoms are unchanged. 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 - Social history:: Smoking status: Patient denies any tobacco usage or history of. - Family history:: not pertinent. ROS: 08:10 Constitutional: Negative for fever, chills, and weight loss. ma2 08:10 All other systems are negative. Exam: 08:10 Constitutional: This is a well developed, well nourished patient who is awake, alert, ma2 and in no acute distress. Head/Face: Normocephalic, atraumatic. Eyes: Pupils equal round and reactive to light, extra-ocular motions intact. Lids and lashes normal. Conjunctiva and sclera are non-icteric and not injected. Cornea within normal limits. Periorbital areas with no swelling, redness, or edema. ENT: Nares patent. No nasal discharge, no septal abnormalities noted. Tympanic membranes are normal and external auditory canals are clear. Oropharynx with no redness, swelling, or masses, exudates, or evidence of obstruction, uvula midline. Mucous membranes moist. Neck: Trachea midline, no thyromegaly or masses palpated, and no cervical lymphadenopathy. Supple, full range of motion without nuchal rigidity, or vertebral point tenderness. No Meningismus. Chest/axilla: Normal chest wall appearance and motion. Nontender with no deformity. No lesions are appreciated. Cardiovascular: Regular rate and rhythm with a normal S1 and S2. No gallops, murmurs, or rubs. Normal PMI, no JVD. No pulse deficits. Respiratory: Lungs have equal breath sounds bilaterally, clear to auscultation and percussion. No rales, rhonchi or wheezes noted. No increased work of breathing, no retractions or nasal flaring. Abdomen/GI: Soft, non-tender, with normal bowel sounds. No distension or tympany. No guarding or rebound. No evidence of tenderness throughout. Skin: Warm, dry with normal turgor. Normal color with no rashes, no lesions, and no evidence of cellulitis. MS/ Extremity: Pulses equal, no cyanosis. Neurovascular intact. Full, normal range of motion. Neuro: Awake and alert, GCS 15, oriented to person, place, time, and situation. Cranial nerves II-XII grossly intact. Motor strength 5/5 in all extremities. Sensory grossly intact. Cerebellar exam normal. Normal gait. Vital Signs: 07:50 BP 123 / 92; Pulse 88; Resp 18 S; Temp 98.3(O); Pulse Ox 97% on R/A; Weight 88.9 kg aa5 (R); Height 5 ft. 5 in. (165.10 cm) (R); 07:50 Body Mass Index 32.62 (88.90 kg, 165.10 cm) aa5 MDM: 07:56 Patient medically screened. ma2 08:10 Differential diagnosis: diabetes mellitus with perephral neuropathy is likely, other dd ma2 includes electrolyte abnormality unlikely as this was checked last and night and wnl, other dd includes cts is unlikely as her numbness extends to both legs as well.. Data reviewed: vital signs, nurses notes, EMS record. Counseling: I had a detailed discussion with the patient and/or guardian regarding: the historical points, exam findings, and any diagnostic results supporting the discharge/admit diagnosis, the presence of at least one elevated blood pressure reading (>120/80) during this emergency department visit, the need for outpatient follow up. Response to treatment: There is no appreciated change of the patient's symptoms at this time. ED course: she will see pcp in 2 days . Administered Medications: No medications were administered Disposition Summary: 06/13/21 08:14 Discharge Ordered Location: Home ma2 Condition: Stable ma2 Diagnosis - Type 2 diabetes mellitus with diabetic neuropathy, unspecified ma2 Followup: ma2 - With: Private Physician - When: Tomorrow - Reason: Continuance of care Discharge Instructions: - Discharge Summary Sheet ma2 - Type 2 Diabetes Mellitus, Diagnosis, Adult ma2 - Neuropathic Pain ma2 - Diabetic Neuropathy ma2 Forms: - Medication Reconciliation Form ma2 - Thank You Letter ma2 - Antibiotic Education ma2 - Prescription Opioid Use ma2 - Work release form bp Prescriptions: - gabapentin 100 mg Oral capsule - take 3 capsule by ORAL route 3 times per day for nerve pain; 30 capsule; ma2 Refills: 0, Product Selection Permitted - Metformin 500 mg Oral Tablet - take 1 tablet by ORAL route 2 times per day for 15 days Then take 1 tablet with ma2 morning meals AND evening meals; 30 tablet; Refills: 0, Product Selection Permitted Signatures: Dispatcher [employer] EDBreana Castro RN RN aa5 Taty Villegas MD MD ma2 Corrections: (The following items were deleted from the chart) 08:12 07:58 IV Saline Lock ordered. ma2 bp 08:12 07:58 Labs collected and sent ordered. ma2 bp 08:12 07:58 Urine Dipstick-Ancillary ordered. ma2 bp
--- NOTE | 2021-06-13 08:16 | ER ---
Nurse's Notes [facility] Name: Chelsie Zaragoza Age: 46 yrs Sex: Female : 1975 Arrival Date: 06/13/2021 Time: 07:43 Bed 10 Private MD: Diagnosis: Type 2 diabetes mellitus with diabetic neuropathy, unspecified Presentation: 06/13 07:50 Chief complaint: Patient states: numbness and tingling to osiel arms and legs that began aa5 1 month ago. Pt states "I came in yesterday but ended up leaving". Coronavirus screen: At this time, the client does not indicate any symptoms associated with coronavirus-19. Ebola Screen: Patient negative for fever greater than or equal to 101.5 degrees Fahrenheit, and additional compatible Ebola Virus Disease symptoms. Initial Sepsis Screen: Does the patient meet any 2 criteria? No. Patient's initial sepsis screen is negative. Does the patient have a suspected source of infection? No. Patient's initial sepsis screen is negative. Risk Assessment: Do you want to hurt yourself or someone else? Patient reports no desire to harm self or others. Onset of symptoms was 2020. 07:50 Method Of Arrival: Ambulatory aa5 07:50 Acuity: YANNA 3 aa5 Triage Assessment: 07:58 General: Appears in no apparent distress. comfortable, Behavior is cooperative, bp appropriate for age, anxious. Pain: Denies pain. EENT: No deficits noted. Neuro: Reports numbness in right arm, left arm, right leg and left leg. Neuro: Moves all extremities. Full function Gait is steady. Cardiovascular: No deficits noted. Respiratory: No deficits noted. GI: No signs and/or symptoms were reported involving the gastrointestinal system. : No signs and/or symptoms were reported regarding the genitourinary system. Derm: No deficits noted. Musculoskeletal: No deficits noted. 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 - Social history:: Smoking status: Patient denies any tobacco usage or history of. - Family history:: not pertinent. Screenin:59 Abuse screen: Denies threats or abuse. Denies injuries from another. Nutritional bp screening: No deficits noted. On. Tuberculosis screening: No symptoms or risk factors identified. Fall Risk None identified. Assessment: 07:59 General: SEE TRIAGE NOTE. bp 09:01 Reassessment: PT D/C HOME AMBULATORY, DX WITH DM WITH NEUROPATHY. bp Vital Signs: 07:50 BP 123 / 92; Pulse 88; Resp 18 S; Temp 98.3(O); Pulse Ox 97% on R/A; Weight 88.9 kg aa5 (R); Height 5 ft. 5 in. (165.10 cm) (R); 07:50 Body Mass Index 32.62 (88.90 kg, 165.10 cm) aa5 ED Course: 07:43 Patient arrived in ED. as 07:50 Arm band placed on. aa5 07:52 Triage completed. aa 07:56 Taty Villegas MD is Attending Physician. [facility] 07:57 Keenan Snider, RN is Primary Nurse. bp 07:59 Patient has correct armband on for positive identification. Bed in low position. Call bp light in reach. Side rails up X2. 09:01 No provider procedures requiring assistance completed. Patient did not have IV access bp during this emergency room visit. Administered Medications: No medications were administered Outcome: 08:14 Discharge ordered by . [facility] 09:01 Discharged to home ambulatory, with family. bp 09:01 Condition: stable 09:01 Discharge instructions given to patient, Instructed on discharge instructions, follow up and referral plans. Demonstrated understanding of instructions, follow-up care, medications, Prescriptions given X 1. 09:02 Patient left the ED. bp Signatures: Yamila Weeks Audri, RN RN [facility] Keenan Snider, RN RN bp Taty Villegas MD MD [facility]
[2021-06-13 09:07] VITALS: BP 123/92; TEMP 98.3; O2SAT 97
== END 2021-06-13 09:02 | disposition home or self-care (01) ==
LOC: ER 07:41
DX: E11.40 Type 2 diabetes mellitus with diabetic neuropathy, unspecified (principal)
CPT/HCPCS: 99282

== ENCOUNTER → 2023-10-22 | Emergency (ER) | payer OTHER, SELFPAY ==
--- OUTSIDE RECORDS SUMMARY | 2023-10-22 13:44 | XMS REPORT | Continuity of Care Document ---
Author Name Unknown Address [address] [place] [address] [facility] Address [address] [place] [address] Care Team Providers Care Drapery Hanger Name Role Phone Pablo MOLINA, [facility] Primary Care Physician [phone] MEHOP_ELIGIBILITY Attending Clinician Unavailabl NANDO White Attending Clinician Unavailable MARCO CHANG Attending Clinician Unavailable Marco Chang MD Attending Clinician [phone] ORA NOEL Attending Clinician Unavailable Mariama Spivey Attending Clinician [phone] MEHOP_ELIGIBILITY Admitting Clinician Unavailсергей e Payers Payer Name Policy Type Policy Number Effective Date Expirati on Date Source [facility] [place] [facility] [id number] 2018 00:00:00 MEDICAID SSI PENDING PENDING 2022 00:00:00 Problems Condition Name Condition Details Condition Category Status Onset Date Resolution Date Last Treatment Date Treating Clinician Comments Source Hyperglyce shaheen Hyperglyce shaheen Disease Active 04-21 00:00: 00 [facility] Obesity (BMI 30.0-34.9) Obesity (BMI 30.0-34.9) Disease Active 2017-10 00:00: 00 [facility] Irregular menstrual cycle Irregular menstrual cycle Disease Active 2017-10 00:00: 00 [facility] History of diet-contr olled diabetes History of diet-contr olled diabetes Disease Active 2017-10 00:00: 00 [facility] Allergies, Adverse Reactions, Alerts Allergy Name Allergy Type Status Severity Reaction(s) Onset Date Inactive Date Treating Clinician Comments Source NO KNOWN ALLERGIE S Drug Class Active [facility] Social History Social Habit Start Date Stop Date Quantity Comments Source Exposure to SARS-CoV-2 (event) 2022-04-11 00:00:00 2022-04-21 21:50:00 Not sure [facility] Alcohol intake 2021-08-07 00:00:00 2021-08-07 00:00:00 Current non-drinker of alcohol (finding) [facility] Tobacco use and exposure 2017-10-18 00:00:00 2017-10-18 00:00:00 Smokeless tobacco non-user [facility] Sex Assigned At 1975 00:00:00 1975 00:00:00 [facility] Smoking Status Start Date Stop Date Source Never smoked tobacco [facility] Medications Ordered Medication Name Filled Medication Name Start Date Stop Date Current Medication? Ordering Clinician Indication Dosage Frequency Signature (SIG) Comments Components Source insulin regular human (HUMULIN R) injection 6 Units 04-22 05:00: 00 04-22 03:57 :00 No 6U 6 Units, IV Push, ONCE, 1 dose, On Wed04/22/22 at 0000, Routine [facility] NaCl 0.9% (NS) bolus infusion 1,000 mL 04-22 04:00: 00 04-22 04:52 :00 No 1000mL at 999 mL/hr, 1,000 mL, IV Infusion, ONCE, 1 dose, On Wed04/21/22 at 2300, MELLO [facility] glipizide ER 5 mg tablet, extended release 24 hr 04-22 00:00: 00 No 1mg Dose Unknown 30 00:00: 00 No Dose Unknown 30 00:00: 00 No Dose Unknown 02-07 00:00: 00 No Dose Unknown 2022-0 4-30 00:00: 00 No Dose Unknown 2022-0 4-30 00:00: 00 No Dose Unknown 2022-0 4-30 00:00: 00 No Dose Unknown 2022-0 4-30 00:00: 00 No Dose Unknown 2022-0 4-30 00:00: 00 No Dose Unknown 2022-0 4-30 00:00: 00 No Dose Unknown 2022-0 4-30 00:00: 00 No Dose Unknown 2022-0 4-30 00:00: 00 No Dose Unknown 2022-0 4-30 00:00: 00 No Dose Unknown 2022-0 4-30 00:00: 00 No Dose Unknown 2022-0 4-30 00:00: 00 No Dose Unknown 2022-0 4-30 00:00: 00 No Dose Unknown 2022-0 4-30 00:00: 00 No Dose Unknown 2022-0 4-30 00:00: 00 No Dose Unknown 2022-0 4-30 00:00: 00 No Dose Unknown 2022-0 4-30 00:00: 00 No Dose Unknown 2022-0 4-30 00:00: 00 No Dose Unknown 2022-0 4-30 00:00: 00 No Dose Unknown 2022-0 4-30 00:00: 00 No Dose Unknown 2022-0 4-30 00:00: 00 No Dose Unknown 2022-0 4-30 00:00: 00 No Dose Unknown 2022-0 4-30 00:00: 00 No Dose Unknown 2022-0 4-30 00:00: 00 No Dose Unknown 2022-0 4-30 00:00: 00 No Dose Unknown 2022-0 4-30 00:00: 00 No Dose Unknown 2022-0 4-30 00:00: 00 No Dose Unknown 2022-0 4-30 00:00: 00 No Dose Unknown 2022-0 4-30 00:00: 00 No Dose Unknown 2022-0 4-30 00:00: 00 No Dose Unknown 2022-0 4-30 00:00: 00 No Dose Unknown 2022-0 4-30 00:00: 00 No Dose Unknown 2022-0 4-30 00:00: 00 No Dose Unknown 2022-0 4-30 00:00: 00 No Dose Unknown 2022-0 4-30 00:00: 00 No Dose Unknown 2022-0 4-30 00:00: 00 No Dose Unknown 2022-0 4-30 00:00: 00 No Dose Unknown 2022-0 4-30 00:00: 00 No Dose Unknown 2022-0 4-30 00:00: 00 No Dose Unknown 2022-0 4-30 00:00: 00 No Dose Unknown 2022-0 4-30 00:00: 00 No Dose Unknown 2022-0 4-30 00:00: 00 No Dose Unknown 2022-0 4-30 00:00: 00 No Dose Unknown 2022-0 4-30 00:00: 00 No Dose Unknown 2022-0 4-30 00:00: 00 No Dose Unknown 2022-0 4-30 00:00: 00 No Dose Unknown 2022-0 4-30 00:00: 00 No Dose Unknown 2022-0 4-30 00:00: 00 No Dose Unknown 2022-0 4-30 00:00: 00 No Dose Unknown 2022-0 4-30 00:00: 00 No Dose Unknown 2022-0 4-30 00:00: 00 No Dose Unknown 2022-0 4-30 00:00: 00 No Dose Unknown 2022-0 4-30 00:00: 00 No Dose Unknown 2022-0 4-30 00:00: 00 No Dose Unknown 2022-0 4-30 00:00: 00 No Dose Unknown 2022-0 4-30 00:00: 00 No Dose Unknown 2022-0 4-30 00:00: 00 No Dose Unknown 2022-0 4-30 00:00: 00 No Dose Unknown 2022-0 4-30 00:00: 00 No Dose Unknown 2022-0 4-30 00:00: 00 No Dose Unknown 2022-0 4-30 00:00: 00 No Dose Unknown 2022-0 4-30 00:00: 00 No Dose Unknown 2022-0 4-30 00:00: 00 No Dose Unknown 2022-0 4-30 00:00: 00 No Dose Unknown 2022-0 4-30 00:00: 00 No Dose Unknown 2022-0 4-30 00:00: 00 No Dose Unknown 2022-0 4-30 00:00: 00 No Dose Unknown 2022-0 4-30 00:00: 00 No Dose Unknown 2022-0 430 00:00: 00 No Dose Unknown 2022-0 430 00:00: 00 No Dose Unknown 2022-0 4-28 00:00: 00 No Dose Unknown 2022-0 428 00:00: 00 No Dose Unknown 2022-0 428 00:00: 00 No Dose Unknown 2022-0 428 00:00: 00 No Dose Unknown 2022-0 428 00:00: 00 No Dose Unknown 2022-0 428 00:00: 00 No Dose Unknown 2022-0 428 00:00: 00 No Dose Unknown 2022-0 428 00:00: 00 No Dose Unknown 2022-0 428 00:00: 00 No Dose Unknown 2022-0 428 00:00: 00 No Dose Unknown 2022-0 428 00:00: 00 No Dose Unknown 2022-0 428 00:00: 00 No Dose Unknown 2022-0 428 00:00: 00 No Dose Unknown 2022-0 428 00:00: 00 No Dose Unknown 2022-0 428 00:00: 00 No Dose Unknown 2022-0 428 00:00: 00 No Dose Unknown 2022-0 428 00:00: 00 No Dose Unknown 2022-0 428 00:00: 00 No Dose Unknown 2022-0 428 00:00: 00 No Dose Unknown 2022-0 428 00:00: 00 No Dose Unknown 2022-0 428 00:00: 00 No Dose Unknown 2022-0 428 00:00: 00 No Dose Unknown 2022-0 428 00:00: 00 No Dose Unknown 2022-0 428 00:00: 00 No Dose Unknown 2022-0 428 00:00: 00 No Dose Unknown 2022-0 428 00:00: 00 No Dose Unknown 2022-0 428 00:00: 00 No Dose Unknown 2022-0 428 00:00: 00 No Dose Unknown 2022-0 428 00:00: 00 No Dose Unknown 2022-0 428 00:00: 00 No Dose Unknown 2022-0 428 00:00: 00 No Dose Unknown 2022-0 4-28 00:00: 00 No Dose Unknown 2022-0 4-28 00:00: 00 No Dose Unknown 2022-0 4-28 00:00: 00 No Dose Unknown 2022-0 4-28 00:00: 00 No Dose Unknown 2022-0 4-28 00:00: 00 No Dose Unknown 2022-0 4-06 00:00: 00 No Dose Unknown 2022-0 4-06 00:00: 00 No Dose Unknown 2022-0 4-06 00:00: 00 No Dose Unknown 2022-0 4-06 00:00: 00 No Dose Unknown 2022-0 4-06 00:00: 00 No Dose Unknown 2022-0 4-06 00:00: 00 No Dose Unknown 2022-0 4-06 00:00: 00 No Dose Unknown 2022-0 4-06 00:00: 00 No Dose Unknown 2022-0 4-06 00:00: 00 No Dose Unknown 2022-0 4-06 00:00: 00 No Dose Unknown 2022-0 4-06 00:00: 00 No Dose Unknown 2022-0 4-06 00:00: 00 No Dose Unknown 2022-0 4-06 00:00: 00 No Dose Unknown 2022-0 4-06 00:00: 00 No Dose Unknown 2022-0 4-06 00:00: 00 No Dose Unknown 2022-0 4-06 00:00: 00 No Dose Unknown 2022-0 4-06 00:00: 00 No Dose Unknown 2022-0 4-06 00:00: 00 No Dose Unknown 2022-0 4-06 00:00: 00 No Dose Unknown 2022-0 4-06 00:00: 00 No Dose Unknown 2022-0 4-06 00:00: 00 No Dose Unknown 2022-0 4-06 00:00: 00 No Dose Unknown 2022-0 4-06 00:00: 00 No Dose Unknown 2022-0 4-06 00:00: 00 No Dose Unknown 2022-0 4-06 00:00: 00 No Dose Unknown 2022-0 4-06 00:00: 00 No Dose Unknown 2022-0 4-06 00:00: 00 No Dose Unknown 2022-0 4-06 00:00: 00 No Dose Unknown 2022-0 4-06 00:00: 00 No Dose Unknown 2022-0 4-06 00:00: 00 No Dose Unknown 2022-0 4-06 00:00: 00 No Dose Unknown 2022-0 4-06 00:00: 00 No Dose Unknown 2022-0 4-06 00:00: 00 No Dose Unknown 2022-0 4-06 00:00: 00 No Dose Unknown 2022-0 4-06 00:00: 00 No Dose Unknown 2022-0 4-06 00:00: 00 No Dose Unknown 2022-0 4-06 00:00: 00 No Dose Unknown 2022-0 4-06 00:00: 00 No Dose Unknown 2022-0 4-06 00:00: 00 No Dose Unknown 2022-0 4-06 00:00: 00 No Dose Unknown 2022-0 4-06 00:00: 00 No Dose Unknown 2022-0 4-06 00:00: 00 No Dose Unknown 2022-0 4-06 00:00: 00 No Dose Unknown 2022-0 4-06 00:00: 00 No Dose Unknown 2022-0 4-06 00:00: 00 No Dose Unknown 2022-0 4-06 00:00: 00 No Dose Unknown 2022-0 4-06 00:00: 00 No Dose Unknown 2022-0 4-06 00:00: 00 No Dose Unknown 2022-0 4-06 00:00: 00 No Dose Unknown 2022-0 4-06 00:00: 00 No Dose Unknown 2022-0 4-06 00:00: 00 No Dose Unknown 2022-0 4-06 00:00: 00 No Dose Unknown 2022-0 4-06 00:00: 00 No Dose Unknown 2022-0 4-06 00:00: 00 No Dose Unknown 2022-0 4-06 00:00: 00 No Dose Unknown 2022-0 4-06 00:00: 00 No Dose Unknown 2022-0 4-06 00:00: 00 No Dose Unknown 2022-0 4-06 00:00: 00 No Dose Unknown 2022-0 4-06 00:00: 00 No Dose Unknown 2022-0 4-06 00:00: 00 No Dose Unknown 2022-0 4-06 00:00: 00 No Dose Unknown 2022-0 4-06 00:00: 00 No Dose Unknown 2022-0 4-06 00:00: 00 No Dose Unknown 2022-0 4-06 00:00: 00 No Dose Unknown 2022-0 4-06 00:00: 00 No Dose Unknown 2022-0 4-06 00:00: 00 No Dose Unknown 2022-0 4-06 00:00: 00 No Dose Unknown 2022-0 4-06 00:00: 00 No Dose Unknown 2022-0 4-06 00:00: 00 No Dose Unknown 2022-0 4-06 00:00: 00 No Dose Unknown 2022-0 4-06 00:00: 00 No Dose Unknown 2022-0 4-06 00:00: 00 No Dose Unknown 2022-0 4-06 00:00: 00 No Dose Unknown 2022-0 4-06 00:00: 00 No Dose Unknown 2022-0 4-06 00:00: 00 No Dose Unknown 2022-0 4-06 00:00: 00 No Dose Unknown 2022-0 4-06 00:00: 00 No Dose Unknown 2022-0 4-06 00:00: 00 No Dose Unknown 2022-0 4-06 00:00: 00 No Dose Unknown 2022-0 4-06 00:00: 00 No Dose Unknown 2022-0 4-06 00:00: 00 No Dose Unknown 2022-0 4-06 00:00: 00 No Dose Unknown 2022-0 4-06 00:00: 00 No Dose Unknown 2022-0 4-06 00:00: 00 No Dose Unknown 2022-0 4-06 00:00: 00 No Dose Unknown 2022-0 4-06 00:00: 00 No Dose Unknown 2022-0 4-06 00:00: 00 No Dose Unknown 2022-0 4-06 00:00: 00 No Dose Unknown 2022-0 4-06 00:00: 00 No Dose Unknown 2022-0 4-06 00:00: 00 No Dose Unknown 2022-0 4-06 00:00: 00 No Dose Unknown 2022-0 4-06 00:00: 00 No Dose Unknown 2022-0 4-06 00:00: 00 No Dose Unknown 2022-0 4-06 00:00: 00 No Dose Unknown 2022-0 4-06 00:00: 00 No Dose Unknown 2022-0 4-06 00:00: 00 No Dose Unknown 2022-0 4-06 00:00: 00 No Dose Unknown 2022-0 4-06 00:00: 00 No Dose Unknown 2022-0 4-06 00:00: 00 No Dose Unknown 2022-0 4-06 00:00: 00 No Dose Unknown 2022-0 4-06 00:00: 00 No Dose Unknown 2022-0 4-06 00:00: 00 No Dose Unknown 2022-0 4-06 00:00: 00 No Dose Unknown 2022-0 4-06 00:00: 00 No Dose Unknown 2022-0 4-06 00:00: 00 No Dose Unknown 2022-0 4-06 00:00: 00 No Dose Unknown 2022-0 4-06 00:00: 00 No Dose Unknown 2022-0 4-06 00:00: 00 No Dose Unknown 2022-0 4-06 00:00: 00 No Dose Unknown 2022-0 4-06 00:00: 00 No Dose Unknown 2022-0 4-06 00:00: 00 No Dose Unknown 2022-0 4-06 00:00: 00 No Dose Unknown 2022-0 4-06 00:00: 00 No Dose Unknown 2022-0 4-06 00:00: 00 No Dose Unknown 2022-0 4-06 00:00: 00 No Dose Unknown 2022-0 4-06 00:00: 00 No Dose Unknown 2022-0 4-06 00:00: 00 No Dose Unknown 2022-0 4-06 00:00: 00 No Dose Unknown 2022-0 4-06 00:00: 00 No Dose Unknown 2022-0 4-06 00:00: 00 No Dose Unknown 2022-0 4-06 00:00: 00 No Dose Unknown 2022-0 4-06 00:00: 00 No Dose Unknown 2022-0 4-06 00:00: 00 No Dose Unknown 2022-0 4-06 00:00: 00 No Dose Unknown 2022-0 4-06 00:00: 00 No Dose Unknown 2022-0 4-06 00:00: 00 No Dose Unknown 2022-0 4-06 00:00: 00 No Dose Unknown 2022-0 4-06 00:00: 00 No Dose Unknown 2022-0 4-06 00:00: 00 No Dose Unknown 2022-0 4-06 00:00: 00 No Dose Unknown 2022-0 4-06 00:00: 00 No Dose Unknown 2022-0 4-06 00:00: 00 No Dose Unknown 2022-0 4-06 00:00: 00 No Dose Unknown 2022-0 4-06 00:00: 00 No Dose Unknown 2022-0 4-06 00:00: 00 No Dose Unknown 2022-0 4-06 00:00: 00 No Dose Unknown 2022-0 4-06 00:00: 00 No Dose Unknown 2022-0 4-06 00:00: 00 No Dose Unknown 2022-0 4-06 00:00: 00 No Dose Unknown 2022-0 4-06 00:00: 00 No Dose Unknown 2022-0 4-06 00:00: 00 No Dose Unknown 2022-0 4-06 00:00: 00 No Dose Unknown 2022-0 4-06 00:00: 00 No Dose Unknown 2022-0 4-06 00:00: 00 No Dose Unknown 2022-0 4-05 00:00: 00 No Dose Unknown 2022-0 4-05 00:00: 00 No Dose Unknown 2022-0 4-05 00:00: 00 No Dose Unknown 2022-0 4-05 00:00: 00 No Dose Unknown 2022-0 4-05 00:00: 00 No Dose Unknown 2022-0 4-05 00:00: 00 No Dose Unknown 2022-0 4-05 00:00: 00 No Dose Unknown 2022-0 4-05 00:00: 00 No Dose Unknown 2022-0 4-05 00:00: 00 No Dose Unknown 2022-0 4-05 00:00: 00 No Dose Unknown 2022-0 4-05 00:00: 00 No Dose Unknown 2022-0 4-05 00:00: 00 No Dose Unknown 2022-0 4-05 00:00: 00 No Dose Unknown 2022-0 4-05 00:00: 00 No Dose Unknown 2022-0 4-05 00:00: 00 No Dose Unknown 2022-0 4-05 00:00: 00 No Dose Unknown 2022-0 4-05 00:00: 00 No Dose Unknown 2022-0 4-05 00:00: 00 No Dose Unknown 2022-0 4-05 00:00: 00 No Dose Unknown 2022-0 4-05 00:00: 00 No Dose Unknown 2022-0 4-05 00:00: 00 No Dose Unknown 2022-0 4-05 00:00: 00 No Dose Unknown 2022-0 4-05 00:00: 00 No Dose Unknown 2022-0 4-05 00:00: 00 No Dose Unknown 2022-0 4-05 00:00: 00 No Dose Unknown 2022-0 4-05 00:00: 00 No Dose Unknown 2022-0 4-05 00:00: 00 No Dose Unknown 2022-0 4-05 00:00: 00 No Dose Unknown 2022-0 4-05 00:00: 00 No Dose Unknown 2022-0 4-05 00:00: 00 No Dose Unknown 2022-0 4-05 00:00: 00 No Dose Unknown 2022-0 4-05 00:00: 00 No Dose Unknown 2022-0 4-05 00:00: 00 No Dose Unknown 2022-0 4-05 00:00: 00 No Dose Unknown 2022-0 4-05 00:00: 00 No Dose Unknown 2022-0 4-05 00:00: 00 No Dose Unknown 2022-0 3-29 00:00: 00 No Dose Unknown 2022-0 3-29 00:00: 00 No Dose Unknown 2022-0 3-29 00:00: 00 No Dose Unknown 2022-0 3-29 00:00: 00 No Dose Unknown 2022-0 3-29 00:00: 00 No Dose Unknown 2022-0 3-29 00:00: 00 No Dose Unknown 2022-0 3-29 00:00: 00 No Dose Unknown 2022-0 3-29 00:00: 00 No Dose Unknown 2022-0 3-29 00:00: 00 No Dose Unknown 2022-0 3-29 00:00: 00 No Dose Unknown 2022-0 3-29 00:00: 00 No Dose Unknown 2022-0 3-29 00:00: 00 No Dose Unknown 2022-0 3-29 00:00: 00 No Dose Unknown 2022-0 3-29 00:00: 00 No Dose Unknown 2022-0 3-29 00:00: 00 No Dose Unknown 01-06 00:00: 00 No Dose Unknown 0 01-06 00:00: 00 No Dose Unknown 0 01-06 00:00: 00 No Dose Unknown 0 3 00:00: 00 No Dose Unknown 0 3 00:00: 00 No Dose Unknown 12-29 00:00: 00 No Dose Unknown 0 12-29 00:00: 00 No Dose Unknown 0 12-29 00:00: 00 No Dose Unknown 12-29 00:00: 00 No Dose Unknown 12-29 00:00: 00 No Dose Unknown 12-29 00:00: 00 No Dose Unknown 12-29 00:00: 00 No Zoloft 100 mg tablet 3 00:00: 00 No 1mg hydroxyzine HCl 50 mg tablet 3 00:00: 00 No 1mg Zoloft 50 mg tablet 2 00:00: 00 No 1mg hydroxyzine HCl 10 mg tablet 2 00:00: 00 No 1mg Zoloft 50 mg tablet 1- 00:00: 00 No 1mg hydroxyzine HCl 10 mg tablet 1- 00:00: 00 No 1mg glipizide ER 5 mg tablet, extended release 24 hr 2020-10 00:00: 00 No 1mg gabapentin 100 mg capsule 2020-10 00:00: 00 No 1mg cefTRIAXone (ROCEPHIN) 1,000 mg in NaCl 0.9% (NS) 50 mL MINI-BAG 2020-10 05:30: 00 08-08 05:05 :00 No 1000mg 1,000 mg, IV Piggyback, ONCE, 1 dose, On Wed08/08/21 at 0030, Administer over 30 Minutes, 50 mL
Reas on for Anti-Infec tive: Documented Infection< br>Documen jennifer Infection Site: Urine
D uration of Therapy: Other (see Comments) [facility] insulin regular human (HUMULIN R) injection 5 Units 2020-10 05:30: 00 08-08 04:32 :00 No 5U 5 Units, Subcutaneo us, ONCE, 1 dose, On Wed08/08/21 at 0030, Routine [facility] NaCl 0.9% (NS) IV infusion 1,000 mL 2020-10 04:45: 00 Yes 1000mL at 999 mL/hr, Intravenou s, CONTINUOUS , Starting on Natasha 08/07/21 at 2345, Until Discontinu ed, Routine [facility] Nitrofurant oin&Nit. Macrocryst (MACROBID) 100 mg capsule 2020-10 00:00: 00 Yes [id number] 100mg Take 1 capsule by mouth 2 (two) times daily. [facility] Nitrofurant oin&Nit. Macrocryst (MACROBID) 100 mg capsule 2020-10 00:00: 00 Yes [id number] 100mg Take 1 capsule by mouth 2 (two) times daily. [facility] glipizide ER 5 mg tablet, extended release 24 hr 2020-10 00:00: 00 No 1mg ondansetron (ZOFRAN (PF)) injection 4 mg 04-06 07:00: 00 04-06 06:15 :00 No 4mg 4 mg, Slow IV Push, ONCE, 1 dose, 04/06/20 at 0200, [facility] NaCl 0.9% (NS) bolus infusion 1,000 mL 04-06 06:00: 00 04-06 07:41 :00 No 1000mL at 999 mL/hr, 1,000 mL, IV Infusion, ONCE, 1 dose, 04/06/20 at 0100, [facility] ibuprofen (IBU) tablet 600 mg 04-06 05:45: 00 04-06 04:44 :00 No 600mg 600 mg, Oral, ONCE, 1 dose, 04/06/20 at 0045, [facility] NaCl 0.9% (NS) bolus infusion 1,000 mL 04-06 05:00: 00 04-06 07:41 :00 No 1000mL at 999 mL/hr, 1,000 mL, IV Infusion, ONCE, 1 dose, 04/06/20 at 0000, MELLO [facility] ondansetron (ZOFRAN ODT) 4 mg disintegrat ing tablet 04-06 00:00: 00 Yes [id number] 4mg Take 1 tablet by mouth every 8 (eight) hours as needed for Nausea and Vomiting (N/V). [facility] ondansetron (ZOFRAN ODT) 4 mg disintegrat ing tablet 04-06 00:00: 00 Yes [id number] 4mg Take 1 tablet by mouth every 8 (eight) hours as needed for Nausea and Vomiting (N/V). [facility] ondansetron (ZOFRAN ODT) 4 mg disintegrat ing tablet 04-06 00:00: 00 Yes [id number] 4mg Take 1 tablet by mouth every 8 (eight) hours as needed for Nausea and Vomiting (N/V). [facility] ondansetron (ZOFRAN ODT) 4 mg disintegrat ing tablet 04-06 00:00: 00 Yes [id number] 4mg Take 1 tablet by mouth every 8 (eight) hours as needed for Nausea and Vomiting (N/V). [facility] ondansetron (ZOFRAN ODT) 4 mg disintegrat ing tablet 04-06 00:00: 00 Yes [id number] 4mg Take 1 tablet by mouth every 8 (eight) hours as needed for Nausea and Vomiting (N/V). [facility] ondansetron (ZOFRAN ODT) 4 mg disintegrat ing tablet 04-06 00:00: 00 Yes [id number] 4mg Take 1 tablet by mouth every 8 (eight) hours as needed for Nausea and Vomiting (N/V). [facility] norgestimat e-ethinyl estradiol 0.18/0.215/ 0.25 mg-25 mcg tablet 2017-10 00:00: 00 Yes 1{tbl} Take 1 tablet by mouth daily. [facility] norgestimat e-ethinyl estradiol 0.18/0.215/ 0.25 mg-25 mcg tablet 2017-10 00:00: 00 Yes 1{tbl} Take 1 tablet by mouth daily. [facility] norgestimat e-ethinyl estradiol 0.18/0.215/ 0.25 mg-25 mcg tablet 2017-10 00:00: 00 Yes 1{tbl} Take 1 tablet by mouth daily. [facility] norgestimat e-ethinyl estradiol 0.18/0.215/ 0.25 mg-25 mcg tablet 2017-10 00:00: 00 Yes 1{tbl} Take 1 tablet by mouth daily. [facility] norgestimat e-ethinyl estradiol 0.18/0.215/ 0.25 mg-25 mcg tablet 2017-10 00:00: 00 Yes 1{tbl} Take 1 tablet by mouth daily. [facility] norgestimat e-ethinyl estradiol 0.18/0.215/ 0.25 mg-25 mcg tablet 2017-10 00:00: 00 Yes 1{tbl} Take 1 tablet by mouth daily. [facility] Vital Signs Vital Name Observation Time Observation Value Comments S ource Systolic blood pressure 2022-04-22 04:52:00 104 mm[Hg] [facility] Diastolic blood pressure 2022-04-22 04:52:00 61 mm[Hg] [facility] Heart rate 2022-04-22 04:52:00 84 /min [facility] Respiratory rate 2022-04-22 04:52:00 23 /min [facility] Oxygen saturation in Arterial blood by Pulse oximetry 2022-04-22 04:52:00 98 /min [facility] Body temperature 2022-04-22 02:55:00 36.61 Danita [facility] Body height 2022-04-22 02:55:00 165.1 cm [facility] Body weight 2022-04-22 02:55:00 81.647 kg [facility] BMI 2022-04-22 02:55:00 29.95 kg/m2 [facility] Systolic blood pressure 2021-08-08 05:32:00 111 mm[Hg] [facility] Diastolic blood pressure 2021-08-08 05:32:00 85 mm[Hg] [facility] Heart rate 2021-08-08 05:32:00 102 /min [facility] Respiratory rate 2021-08-08 05:32:00 16 /min [facility] Oxygen saturation in Arterial blood by Pulse oximetry 2021-08-08 05:32:00 99 /min [facility] Body temperature 2021-08-08 03:02:00 37.33 Danita [facility] Body height 2021-08-08 03:02:00 165.1 cm [facility] Body weight 2021-08-08 03:02:00 83.915 kg [facility] BMI 2021-08-08 03:02:00 30.79 kg/m2 [facility] Systolic blood pressure 2020-04-06 07:00:00 109 mm[Hg] [facility] Diastolic blood pressure 2020-04-06 07:00:00 70 mm[Hg] [facility] Heart rate 2020-04-06 07:00:00 95 /min [facility] Respiratory rate 2020-04-06 07:00:00 23 /min [facility] Oxygen saturation in Arterial blood by Pulse oximetry 2020-04-06 07:00:00 94 /min [facility] Body temperature 2020-04-06 05:44:33 38.78 Danita [facility] Body height 2020-04-06 04:35:00 165.1 cm [facility] Body weight 2020-04-06 04:35:00 81.647 kg [facility] BMI 2020-04-06 04:35:00 29.95 kg/m2 [facility] Systolic blood pressure 2020-04-06 07:00:00 109 mm[Hg] [facility] Diastolic blood pressure 2020-04-06 07:00:00 70 mm[Hg] [facility] Heart rate 2020-04-06 07:00:00 95 /min [facility] Respiratory rate 2020-04-06 07:00:00 23 /min [facility] Oxygen saturation in Arterial blood by Pulse oximetry 2020-04-06 07:00:00 94 /min [facility] [facility] Body temperature 2020-04-06 05:44:33 38.78 Danita [facility] Body height 2020-04-06 04:35:00 165.1 cm [facility] Body weight 2020-04-06 04:35:00 81.647 kg [facility] BMI 2020-04-06 04:35:00 29.95 kg/m2 [facility] BP Systolic 2022-04-22 09:03:00 115 mm[Hg] BP Diastolic 2022-04-22 09:03:00 79 mm[Hg] Weight Measured 2022-04-22 09:03:00 186.60 pounds Height Measured 2022-04-22 09:03:00 65.00 inches Body Temperature 2022-04-22 09:03:00 97.70 degrees Heart Rate 2022-04-22 09:03:00 96.00 /min Respiratory Rate 2022-04-22 09:03:00 16.00 /min BP Systolic 2021-11-24 15:14:00 128 mm[Hg] BP Diastolic 2021-11-24 15:14:00 84 mm[Hg] Weight Measured 2021-11-24 15:14:00 191.60 pounds Height Measured 2021-11-24 15:14:00 65.00 inches Body Temperature 2021-11-24 15:14:00 98.30 degrees Heart Rate 2021-11-24 15:14:00 89.00 /min Respiratory Rate 2021-11-24 15:14:00 18.00 /min BP Systolic 2021-11-05 11:54:00 151 mm[Hg] BP Diastolic 2021-11-05 11:54:00 105 mm[Hg] Weight Measured 2021-11-05 11:54:00 189.20 pounds Height Measured 2021-11-05 11:54:00 65.00 inches Body Temperature 2021-11-05 11:54:00 97.90 degrees Heart Rate 2021-11-05 11:54:00 110.00 /min Respiratory Rate 2021-11-05 11:54:00 18.00 /min BP Systolic 2021-09-23 16:36:00 117 mm[Hg] BP Diastolic 2021-09-23 16:36:00 87 mm[Hg] Weight Measured 2021-09-23 16:36:00 191.80 pounds Height Measured 2021-09-23 16:36:00 64.57 inches Body Temperature 2021-09-23 16:36:00 Heart Rate 2021-09-23 16:36:00 Respiratory Rate 2021-09-23 16:36:00 BP Systolic 2021-08-06 16:43:00 131 mm[Hg] BP Diastolic 2021-08-06 16:43:00 87 mm[Hg] Weight Measured 2021-08-06 16:43:00 191.20 pounds Height Measured 2021-08-06 16:43:00 64.57 inches Body Temperature 2021-08-06 16:43:00 97.50 degrees Heart Rate 2021-08-06 16:43:00 122.00 /min Respiratory Rate 2021-08-06 16:43:00 Procedures Procedure Date / Time Performed Performing Clinician Source POCT [id number] (AUTOMATED) 2022-04-22 04:29:00 [place] [facility]ATED[facility]04[facility]22 03:56[facility]04-22 03:08:00 Winifredganinfa [facility] URINE DRUG (IMMUNOASSAY) - COMPREHENSIVE DRUG SCREEN W/O REFLEX 2022-04-22 03:08:00 Alexy [facility] COMP. METABOLIC PANEL (31046) 2022-04-22 03:02:00 Alexy [facility] CBC WITH DIFF 2022-04-22 03:02:00 Alexy [facility] POCT GLUCOSE (AUTOMATED) 2022-04-22 03:01:00 Alexy [facility] EKG-12 LEAD 2021-08-08 05:25:56 Marco Chang [facility] POCT GLUCOSE (AUTOMATED) 2021-08-08 05:09:00 Ean Chang [facility] COVID-19 (ID NOW RAPID TESTING) 2021-08-08 03:49:00 Marco Chang [facility] LIPASE 2021-08-08 03:49:00 Marco Chang [facility] MAGNESIUM 2021-08-08 03:49:00 Marco Chang [facility] TROPONIN I 2021-08-08 03:49:00 Marco Chang [facility] COMP. METABOLIC PANEL (53230) 2021-08-08 03:49:00 Marco Chang [facility] CBC WITH DIFF 2021-08-08 03:49:00 [facility] 2021-08-08 03:49:00 Marco Chang [facility] POCT TEST 2020-04-06 05:55:00 Mariama Madrigal [facility] URINALYSIS 2020-04-06 05:05:00 [facility] 2020-04-06 04:58:00 [facility] COMP. METABOLIC PANEL (98312) 2020-04-06 04:58:00 Mariama Madrigal [facility] N-TERMINAL PRO-BNP 2020-04-06 04:58:00 Mariama Madrigal [facility] CBC WITH DIFFERENTIAL 2020-04-06 04:58:00 Stewart Madrigal [facility] LACTIC ACID WHOLE BLOOD 2020-04-06 04:57:00 Me peggy Madrigal [facility] ASSIGNMENT OF BENEFITS 2020-04-06 04:23:58 Docjennifer r Unassigned, [place] [facility] NOTICE OF PRIVACY PRACTICES 2020-04-06 04:23:28 Doctor Unassigned, [place] [facility] CONSENT/REFUSAL FOR DIAGNOSIS AND TREATMENT 2020-04-06 04:23:14 Doctor Unassigned, [place] [facility] Plan of Care Planned Activity Planned Date Details Comments Source Goal Plan of Care Note [code = 94119-2] Goal Plan of Care Note [code = 11984-4] Goal Plan of Care Note [code = 95676-9] Goal Plan of Care Note [code = 44052-3] Goal Plan of Care Note [code = 56481-3] Goal Plan of Care Note [code = 97390-6] Encounters Start Date/Time End Date/Time Encounter Type Admission Type Attending Clinicians Care Facility Care Department Encounter ID Source 2021-08-08 03:13:29 Emergency [facility] [id number] [facility] 2023-08-16 15:17:12 2023-08-16 15:17:12 Outpatient [facility] [id number] Ranjan Miquel Arnulfo 2023-04-28 16:00:27 2023-04-28 16:00:27 Outpatient [facility] [id number] Ranjan Miquel Arnulfo 2022-10-21 17:17:30 2022-10-21 17:17:30 Outpatient [facility] [id number] Ranjan Arredondo 2022-09-30 00:00:00 2022-09-30 00:00:00 [facility] [id number] [facility] 2022-04-22 00:00:00 2022-04-22 00:00:00 Outpatient Visit [id number] 2022-04-21 21:49:00 2022-04-21 23:58:00 Emergency X NANDO OCHOA [facility] ERT [id number] [facility] 2022-04-21 21:49:00 2022-04-21 23:58:00 Emergency Nando Ochoa [facility] 1.2.840.114 350.1.13.10 4.2.7.2.686 [id number] [facility] 2021-08-07 21:55:00 2021-08-08 00:33:00 Emergency X MARCO CHANG [facility] ERT [id number] [facility] 2021-08-07 21:55:00 2021-08-08 00:33:00 Emergency Marco Chang [facility] 1.2.840.114 350.1.13.10 4.2.7.2.686 [id number] [facility] 2020-05-20 16:40:00 2020-05-20 16:40:00 Outpatient R ORA NOEL [facility] [id number] [facility] 2020-04-08 00:00:00 2020-04-08 00:00:00 Letter (Out) Stewart Madrigaln Ninfa [facility] 1.2.840.114 350.1.13.10 4.2.7.2.686 [id number] [facility] 2020-04-08 00:00:00 2020-04-08 00:00:00 Letter (Out) Mariama Madrigal [facility] 1.2.840.114 350.1.13.10 4.2.7.2.686 [id number] 000 [id number] [facility] 2020-04-08 00:00:00 2020-04-08 00:00:00 Letter (Out) Stewart Madrigaln Ninfa [facility] 1.2.840.114 350.1.13.10 4.2.7.2.686 [id number] 000 [id number] [facility] 2020-04-08 00:00:00 2020-04-08 00:00:00 Letter (Out) MadrigalStewartn Ninfa [facility] 1.2.840.114 350.1.13.10 4.2.7.2.686 [id number] 2020-04-08 00:00:00 2020-04-08 00:00:00 Letter (Out) Mariama Madrigal [facility] 1.2.840.114 350.1.13.10 4.2.7.2.686 [id number] 000 [id number] 2020-04-08 00:00:00 2020-04-08 00:00:00 Letter (Out) Mariama Madrigal [facility] 1.2.840.114 350.1.13.10 4.2.7.2.686 [id number] 000 [id number] 2020-04-05 23:30:47 2020-04-06 02:43:00 Emergency Mariama Madrigal [facility] 1.2.840.114 350.1.13.10 4.2.7.2.686 [id number] 2020-04-05 23:30:47 2020-04-06 02:43:00 Emergency Mariama Madrigal [facility] 1.2.840.114 350.1.13.10 4.2.7.2.686 [id number] 084 [id number] [facility] Results Test Description Test Time Test Comments Results Result Co mments Source [facility] GLUCOSE (AUTOMATED)2022-04-22 04:08:37* Test Item Value Reference Range Interpretation Comme [facility] POCT GLU (test code = 5500784005) 455 mg/dL 70-110 HH Lab Interpretation (test cod e = 58438-7) Abnormal [facility] GLUCOSE (AUTOMATED)2022-04-22 03:05:52* Test Item Value Reference Range Interpretation Comme [facility] POCT GLU (test code = 8612593425) 444 mg/dL 70-110 H Lab Interpretation (test cod e = 88212-2) Abnormal [facility] GLUCOSE (AUTOMATED)2021-08-08 05:16:03* Test Item Value Reference Range Interpretation Comme [facility] POCT GLU (test code = 7624264792) 280 mg/dL 70-110 H Lab Interpretation (test cod e = 35181-5) [facility]normal [facility] [id number] 04:23:14* Test Item Value Reference Range Interpretation Comments TROPONIN I (test code = 0662385225) <0.012 See_Comment [Automated message] The system which generated this result transmitted reference range: <=0.034 ng/mL. The reference range was not used to interpret this result as normal/abnormal. HALEY (test code = HALEY) Reference (Normal) Range (defined by the 99th percentile reference limit): <= 0.034 ng/mL Note: Cardiac troponin begins to rise 3-4 hours after the onset of ischemia. Repeat in 4-6 hours if the sample was drawn within 3-4 hours of the onset of the symptom and found normal. Diagnosis of myocardial injury is made with acute changes in cTn concentrations with at least one serial sample above the 99th percentile upper reference limit (URL), taken together with the patient's clinical presentation. Biotin has been reported to cause a negative bias, interpret results relative to patient's use of biotin. Lab Interpretation (test code = 55447-0) Normal [facility] 04:12:51* Test Item Value Reference Range Interpretation Comme nts MAGNESIUM (test code = 3957872330) 1.7 mg/dL 1.7-2.4 Lab Interpretation (test cod e = 17503-8) Normal [facility]OL[facility] (78150)2021-08-08 04:12:10* Test Item Value Reference Range Interpretation Comme nts NA (test code = 7939758162) 133 mmol/L 135-145 L K (test code = 4748096500) 3.9 mmol/L 3.5-5.0 CL (test code = 2152653081) 97 mmol/L 98-108 L CO2 TOTAL (test code = 2176778495) 27 mmol/L 23-31 AGAP (test code = 8039384562) 2-16 BUN (test code = 9017852396) 13 mg/dL 7-23 GLUCOSE (test code = 9877423580) 334 mg/dL 70-110 H CREATININE (test code = 7871351646) 0.58 mg/dL 0.50-1.04 TOTAL BILI (test code = 1502447160) 1.5 mg/dL 0.1-1.1 H CALCIUM (test code = 3317535544) 10.0 mg/dL 8.6-10.6 T PROTEIN (test code = 5567030561) 7.9 g/dL 6.3-8.2 ALBUMIN (test code = 2531397615) 4.3 g/dL 3.5-5.0 ALK PHOS (test code = 1391012634) 183 U/L 34-122 H ALTv (test code = 1742-6) 20 U/L 5-35 AST(SGOT) (test code = 3687675644) 19 U/L 13-40 eGFR (test code = 6259274571) mL/min/1.73m2 HALEY (test code = HALEY) Association of Glomerular Filtration Rate (GFR) and Staging of Kidney Disease* + --+ --+ ------+| GFR (mL/min/1.73 m2) ?| With Kidney Damage ?| ?Without Kidney Damage+ --------+ --------+ +| ?>90 ?| ?Stage one ?| ? Normal ?+ ---+ ---+ -------+| ?60-89 ?| ?Stage two ?| ? Decreased GFR ? + --+ --+ ------+| ?30-59 ?| ?Stage three ?| ? Stage three ? + --+ --+ ------+| ?15-29 ?| ?Stage four ? | ? Stage four ?+ ---+ ---+ -------+| ?<15 (or dialysis) ? ?| ?Stage five ? | ? Stage five ?+ ---+ ---+ -------+ *Each stage assumes the associated GFR level has been in effect for at least three months. ?Stages 1 to 5, with or without kidney disease, indicate chronic kidney disease. Notes: Determination of stages one and two (with eGFR >59mL/min/1.73 m2) requires estimation of kidney damage for at least three months as defined by structural or functional abnormalities of the kidney, manifested by either:Pathological abnormalities or Markers of kidney damage (including abnormalities in the composition of the blood or urine or abnormalities in imaging tests). Lab Interpretation (test code = 70521-5) [facility] 04:12:10* Test Item Value Reference Range Interpretation Comme nts LIPASE (test code = 5288861144) 117 U/L 0-220 Lab Interpretation (test cod e = 75884-9) Normal [facility] WITH [id number] 04:02:51* Test Item Value Reference Range Interpretation Comme nts WBC (test code = 6690-2) See_Comment [Automated messa ge] The system which generated this result transmitted reference range: 4.30 - 11.10 10*3/?L. The reference range was not used to interpret this result as normal/abnormal. RBC (test code = 789-8) See_Comment [Automated messa ge] The system which generated this result transmitted reference range: 3.93 - 5.25 10*6/?L. The reference range was not used to interpret this result as normal/abnormal. HGB (test code = 718-7) 14.5 g/dL 11.6-15.0 HCT (test code = 4544-3) 43.6 % 35.7-45.2 MCV (test code = 787-2) 84.7 fL 80.6-95.5 MCH (test code = 785-6) 28.2 pg 25.9-32.8 MCHC (test code = 786-4) 33.3 g/dL 31.6-35.1 RDW-SD (test code = 16879-9) 38.3 fL 39.0-49.9 L RDW-CV (test code = 788-0) 12.4 % 12.0-15.5 PLT (test code = 777-3) See_Comment [Automated messa ge] The system which generated this result transmitted reference range: 166 - 358 10*3/?L. The reference range was not used to interpret this result as normal/abnormal. MPV (test code = 34713-3) 11.7 fL 9.5-12.9 NRBC/100 WBC (test code = 3389377916) See_Comment [Automated [employer] ssage] The system which generated this result transmitted reference range: 0.0 - 10.0 /100 WBCs. The reference range was not used to interpret this result as normal/abnormal. NRBC x10^3 (test code = 0824942639) <0.01 See_Comment [Automated messa ge] The system which generated this result transmitted reference range: 10*3/?L. The reference range was not used to interpret this result as normal/abnormal. GRAN MAT (NEUT) % (test code = 770-8) 67.3 % IMM GRAN % (test code = 8575265068) 0.60 % LYMPH % (test code = 736-9) 22.5 % MONO % (test code = 5905-5) 7.7 % EOS % (test code = 713-8) 1.5 % BASO % (test code = 706-2) 0.4 % GRAN MAT x10^3(ANC) (test code = 7303155717) 4.87 10*3/uL 1.88-7.09 IMM GRAN x10^3 (test code = 0807812339) 0.04 10*3/uL 0.00-0.06 LYMPH x10^3 (test code = 731-0) 1.63 10*3/uL 1.32-3.29 MONO x10^3 (test code = 742-7) 0.56 10*3/uL 0.33-0.92 EOS x10^3 (test code = 711-2) 0.11 10*3/uL 0.03-0.39 BASO x10^3 (test code = 704-7) 0.03 10*3/uL 0.01-0.07 Lab Interpretation (test code = 91504-5) [facility]normal [facility] ([facility] by RT-PCR (HIGH RISK) 2020-05-15 00:00:00* Test Item Value Reference Range Interpretation Comme nts SARS-CoV-2 INTERPRETATION (t est code = 18127) NEGATIVE SOURCE (test code = 47610) NOT SPECIFIED POCT [id number] 05:55:00* Test Item Value Reference Range Interpretation Comme nts POCT PREG (test code = 1605) Negative On board controls acceptable with C Line (test code = 3574) Present POCT PREG LOT # (test code = 3575) HCG [id number] POCT PREG TEST DATE ( test code = 3576) 07/10/2021 Lab Interpretation (test cod e = 65114-1) Normal [facility] [id number] 05:51:00* Test Item Value Reference Range Interpretation Comme nts NT-proBNP (test code = 8741609071) 55 pg/mL See_Comment [Automated message] The system which generated this result transmitted reference range: <=125. The reference range was not used to interpret this result as normal/abnormal. HALEY (test code = HALEY) Biotin has been reported to cause a negative bias, interpret results relative to patient's use of biotin. Lab Interpretation (test code = 49305-4) Normal [facility]. METABOLIC PANEL (80835)2020-04-06 05:42:00* Test Item Value Reference Range Interpretation Comme nts NA (test code = 4122230928) 134 mmol/L 135-145 L K (test code = 1430693723) 4.1 mmol/L 3.5-5 CL (test code = 2231772497) 101 mmol/L 98-108 CO2 TOTAL (test code = 4593036942) 24 mmol/L 23-31 AGAP (test code = 7951310907) 2-16 BUN (test code = 6824882055) 8 mg/dL 7-23 GLUCOSE (test code = 1468596052) 245 mg/dL 70-110 H CREATININE (test code = 4049213248) 0.66 mg/dL 0.5-1.04 TOTAL BILI (test code = 2586127121) 0.9 mg/dL 0.1-1.1 CALCIUM (test code = 7951743258) 9.4 mg/dL 8.6-10.6 T PROTEIN (test code = 5181778825) 8.3 g/dL 6.3-8.2 H ALBUMIN (test code = 1106445977) 4.5 g/dL 3.5-5 ALK PHOS (test code = 8601367255) 115 U/L 34-122 ALTv (test code = 1742-6) 31 U/L 5-35 AST(SGOT) (test code = 6325950843) 30 U/L 13-40 eGFR Calculation (Non-) (test code = 1688521408) mL/min/1.73m2 eGFR Calculation () (test code = 6877738125) mL/min/1.73m2 HALEY (test code = HALEY) Association of Glomerular Filtration Rate (GFR) and Staging of Kidney Disease* + --+ --+ ------+| GFR (mL/min/1.73 m2) ?| With Kidney Damage ?| ?Without Kidney Damage+ --------+ --------+ +| ?>90 ?| ?Stage one ?| ? Normal ?+ ---+ ---+ -------+| ?60-89 ?| ?Stage two ?| ? Decreased GFR ? + --+ --+ ------+| ?30-59 ?| ?Stage three ?| ? Stage three ? + --+ --+ ------+| ?15-29 ?| ?Stage four ? | ? Stage four ?+ ---+ ---+ -------+| ?<15 (or dialysis) ? ?| ?Stage five ? | ? Stage five ?+ ---+ ---+ -------+ *Each stage assumes the associated GFR level has been in effect for at least three months. ?Stages 1 to 5, with or without kidney disease, indicate chronic kidney disease. Notes: Determination of stages one and two (with eGFR >59mL/min/1.73 m2) requires estimation of kidney damage for at least three months as defined by structural or functional abnormalities of the kidney, manifested by either:Pathological abnormalities or Markers of kidney damage (including abnormalities in the composition of the blood or urine or abnormalities in imaging tests). Lab Interpretation (test code = 64729-4) [facility]normal [facility]2020-[facility] 05:42:00* Test Item Value Reference Range Interpretation Comme nts LIPASE (test code = 5371657100) 60 U/L 0-220 Lab Interpretation (test cod e = 73534-9) Normal [facility]2020-06-27 05:35:00* Test Item Value Reference Range Interpretation Comme nts APPEARANCE (test code = 2130538075) Cloudy Clear A COLOR (test code = 6745159953) Benita Yellow A PH (test code = 6868577651) 4.8-8.0 SP GRAVITY (test code = 2385754616) 1.003-1.030 GLU U QUAL (test code = 8802967832) Normal Normal BLOOD (test code = 4249609976) Negative Negative KETONES (test code = 5340318729) Negative Negative PROTEIN (test code = 2887-8) Negative Negative UROBILIN (test code = 6227014079) 4.0 mg/dL Normal A BILIRUBIN (test code = 4247095072) Negative Negative NITRITE (test code = 7139277326) Negative Negative LEUK PATRICIA (test code = 3795697690) Negative Negative RBC/HPF (test code = 4721988195) See_Comment [Automated messa ge] The system which generated this result transmitted reference range: 0 - 3 HPF. The reference range was not used to interpret this result as normal/abnormal. WBC/HPF (test code = 9096684775) See_Comment [Automated [employer] ge] The system which generated this result transmitted reference range: 0 - 5 HPF. The reference range was not used to interpret this result as normal/abnormal. BACTERIA (test code = 0943797987) Many Negative A MUCOUS (test code = 7765462441) Slight Negative LPF A SQ EPITH (test code = 3825410495) HPF Lab Interpretation (test code = 24631-7) Abnormal [facility] WITH [id number] 05:26:00* Test Item Value Reference Range Interpretation Comme nts WBC (test code = 6690-2) See_Comment [Automated messa ge] The system which generated this result transmitted reference range: 4.30 - 11.10 10*3/?L. The reference range was not used to interpret this result as normal/abnormal. RBC (test code = 789-8) See_Comment [Automated [employer] ge] The system which generated this result transmitted reference range: 3.93 - 5.25 10*6/?L. The reference range was not used to interpret this result as normal/abnormal. HGB (test code = 718-7) 13.0 g/dL 11.6-15 HCT (test code = 4544-3) 38.4 % 35.7-45.2 MCV (test code = 787-2) 84.6 fL 80.6-95.5 MCH (test code = 785-6) 28.6 pg 25.9-32.8 MCHC (test code = 786-4) 33.9 g/dL 31.6-35.1 RDW-SD (test code = 94001-8) 39.8 fL 39-49.9 RDW-CV (test code = 788-0) 12.8 % 12-15.5 PLT (test code = 777-3) See_Comment [Automated messa ge] The system which generated this result transmitted reference range: 166 - 358 10*3/?L. The reference range was not used to interpret this result as normal/abnormal. MPV (test code = 44784-1) 11.8 fL 9.5-12.9 NRBC/100 WBC (test code = 8174101454) See_Comment [Automated [employer] ssage] The system which generated this result transmitted reference range: 0.0 - 10.0 /100 WBCs. The reference range was not used to interpret this result as normal/abnormal. NRBC x10^3 (test code = 1270337497) <0.01 See_Comment [Automated messa ge] The system which generated this result transmitted reference range: 10*3/?L. The reference range was not used to interpret this result as normal/abnormal. GRAN MAT (NEUT) % (test code = 770-8) 81.5 % IMM GRAN % (test code = 2158005966) 0.80 % LYMPH % (test code = 736-9) 7.7 % MONO % (test code = 5905-5) 7.2 % EOS % (test code = 713-8) 2.3 % BASO % (test code = 706-2) 0.5 % GRAN MAT x10^3(ANC) (test code = 4661623738) 4.95 10*3/uL 1.88-7.09 IMM GRAN x10^3 (test code = 4449784034) 0.05 10*3/uL 0-0.06 LYMPH x10^3 (test code = 731-0) 0.47 10*3/uL 1.32-3.29 L MONO x10^3 (test code = 742-7) 0.44 10*3/uL 0.33-0.92 EOS x10^3 (test code = 711-2) 0.14 10*3/uL 0.03-0.39 BASO x10^3 (test code = 704-7) 0.03 10*3/uL 0.01-0.07 Lab Interpretation (test code = 85042-4) Abnormal [facility] Acid Whole Ywpss5497-72-80 05:15:00* Test Item Value Reference Range Interpretation Comme nts LACTIC ACID (test code = 9696757262) 1.78 mmol/L 0.3-2.6 [facility]"
[2023-10-22 14:10] LABS: Absolute Lymphocytes (CBC) 0.8 K/uL (0.7-4.9); Hematocrit 37.9 % (36.0-45.0); Lymphocytes % 16.2 % (15.3-44.8); MCV 82.3 fL (80-100); MPV 9.8 fL (7.6-11.3); Platelets 185 thou/uL (152-406); RBC Red Blood Cell Count 4.61 M/uL (3.86-4.86)
[2023-10-22 14:36] LABS: Albumin 3.4 g/dL (3.4-5.0); Bilirubin Total 0.9 mg/dL (0.2-1.0); Potassium 3.8 mEq/L (3.5-5.1); Protein, Total 7.5 g/dL (6.4-8.2); Troponin High Sensitivity 3.2 pg/mL (<58.9)
[2023-10-22 16:22] LABS: Specific Gravity 1.015 (1.005-1.030)
[2023-10-22 16:24] LABS: Specific Gravity 1.015 (1.005-1.030); Urine Bacteria 20-50 /HPF (<20); Urine Bilirubin NEGATIVE (Negative); Urine Blood Negative (Negative); Urine Clarity Extremely Turbid (Clear); Urine Color Light-Yellow (Yellow); Urine Glucose TRACE (Negative); Urine Mucus 2+ /HPF (None Seen); Urine Protein NEGATIVE (Negative); Urine RBC None Seen /HPF (None Seen); Urine Urobilinogen 1+ (Normal)
--- NOTE | 2023-10-22 16:31 | ER ---
Nurse's Notes [facility] Name: Chelsie Zaragoza Age: 48 yrs Sex: Female : 1975 Arrival Date: 10/22/2023 Time: 13:39 Bed 13 Private MD: Diagnosis: UTI/ Urinary tract infection, site not specified;Syncope Near Presentation: 10/22 13:43 Chief complaint: EMS states: Syncopal episode while hanging clothes in closet, reports hb cough and headache x 2 days, is noncompliant with her Metformin. Family member has the flu. Denies injury. BP 126/105, HR 118, SpO2 100% on RA, T 98.5, BGL 309. 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 Coronavirus screen: At this time, the client does not indicate any symptoms associated with coronavirus-19. Ebola Screen: No symptoms or risks identified at this time. Initial Sepsis Screen: Does the patient meet any 2 criteria? No. Patient's initial sepsis screen is negative. Does the patient have a suspected source of infection? No. Patient's initial sepsis screen is negative. Risk Assessment: Do you want to hurt yourself or someone else? Patient reports no desire to harm self or others. Onset of symptoms was October 22, 2023. 13:43 Method Of Arrival: EMS: [facility] hb 13:43 Acuity: YANNA 3 hb SOLE POLISHER: 13:47 LMP N/A - , Not mb9 Historical: - Allergies: 14:01 No Known Allergies; mb9 - Home Meds: 14:01 amoxiclav [Active]; Metformin Oral [Active]; mb9 - PMHx: 14:01 Diabetes - NIDDM; Pneumonia; mb9 - Immunization history:: Adult Immunizations up to date. - Social history:: Smoking status: Patient denies any tobacco usage or history of. Screenin:46 [facility] ED Fall Risk Assessment (Adult) History of falling in the last 3 months, mb9 including since admission Yes- single mechanical fall (1 pt) Confusion or Disorientation No (0 pts) Intoxicated or Sedated No (0 pts) Impaired Gait No (0 pts) Mobility Assist Device Used No (0 pt) Altered Elimination No (0 pt) Score/Fall Risk Level 0 - 2 = Low Risk Oriented to surroundings, Maintained a safe environment, Educated pt \T\ family on fall prevention, incl call for assistance when getting out of bed. Abuse screen: Denies threats or abuse. Nutritional screening: No deficits noted. Tuberculosis screening: No symptoms or risk factors identified. Assessment: 14:03 General: Appears in no apparent distress. Behavior is calm, cooperative. Pain: mb9 Complains of pain in head. Neuro: Yarbrough Agitation-Sedation Scale (RASS): 0 - Alert and Calm Level of Consciousness is awake, alert, obeys commands, Oriented to person, place, time, situation, Appropriate for age Reports headache. Cardiovascular: Heart tones S1 S2 present Patient's skin is warm and dry. Rhythm is regular. Respiratory: Airway is patent Respiratory effort is even, unlabored, Respiratory pattern is regular, symmetrical. GI: Abdomen is round non-distended, Bowel sounds present X 4 quads. Abd is soft and non tender X 4 quads. : No signs and/or symptoms were reported regarding the genitourinary system. Derm: Skin is pink, warm \T\ dry. Musculoskeletal: Range of motion: intact in all extremities. 15:00 Reassessment: No changes from previously documented assessment. Patient and/or family mb9 updated on plan of care and expected duration. Pain level reassessed. Patient is alert, oriented x 3, equal unlabored respirations, skin warm/dry/pink. 16:04 Reassessment: No changes from previously documented assessment. Patient and/or family mb9 updated on plan of care and expected duration. Pain level reassessed. Patient is alert, oriented x 3, equal unlabored respirations, skin warm/dry/pink. Vital Signs: 13:43 BP 142 / 92; Pulse 109; Resp 18; Temp 98.6(O); Pulse Ox 97% on R/A; Weight 81.65 kg; hb Height 5 ft. 6 in. ; Pain 8/10; 16:04 BP 117 / 83; Pulse 88; Resp 18; Pulse Ox 100% on R/A; mb9 13:43 Body Mass Index 29.05 (81.65 kg, 167.64 cm) hb 13:43 Pain Scale: Adult hb ED Course: 13:43 Patient arrived in ED. hb 13:43 Greg Thornton MD is Attending Physician. ec2 13:46 Breneman, Ailyn, RN is Primary Nurse. mb9 13:46 Arm band placed on. mb9 13:46 Placed in gown. Bed in low position. Call light in reach. Side rails up X 1. Client mb9 placed on continuous cardiac and pulse oximetry monitoring. NIBP monitoring applied. rail grinder on. 13:47 Triage completed. hb 14:01 Troponin High Sensitivity Sent. mb9 14:01 CMP Sent. mb9 14:01 CBC with Diff Sent. mb9 14:02 EKG done, by ED staff, reviewed by Greg Thornton MD. Maintain EMS IV. Dressing intact. mb9 Good blood return noted. Site clean \T\ dry. Gauge \T\ site: 20 g to right AC. 14:03 No provider procedures requiring assistance completed. mb9 16:53 IV discontinued, intact, bleeding controlled, No redness/swelling at site. Pressure mb9 dressing applied. Administered Medications: No medications were administered Medication: 13:46 VIS not applicable for this client. mb9 Outcome: 16:30 Discharge ordered by . ec2 16:53 Discharged to home ambulatory, mb9 16:53 Condition: stable 16:53 Discharge instructions given to patient, Instructed on discharge instructions, follow up and referral plans. Demonstrated understanding of instructions, follow-up care, medications, Prescriptions given X 1, 16:53 Patient left the ED. mb9 Signatures: Neisha Oseguera RN RN hb Breneman, Mary Beth, RN RN adrian Thornton, MD JESSE Garza ec2 Corrections: (The following items were deleted from the chart) 13:48 13:43 Chief complaint: EMS states: Syncopal episode while hanging clothes in closet, hb reports cough and headache x 2 days, is noncompliant with her Metformin. Family member has the flu. Denies injury. BP 126/105, HR 118, SpO2 100% on RA, T 98.5, NS 250 mls and Zofran 4 mg administered to 20 g RAC SSIS DEVELOPER. hb
--- NOTE | 2023-10-22 16:31 | EDPHYS ---
Physician Documentation [facility] Name: Chelsie Zaragoza Age: 48 yrs Sex: Female : 1975 Arrival Date: 10/22/2023 Time: 13:39 Bed 13 Private MD: ED Physician Greg Thornton HPI: 10/22 13:49 This 48 yrs old Female presents to ER via EMS with complaints of Syncope. ec2 13:49 Patient arrives today for evaluation of a syncopal episode. States that she was working ec2 on hanging up objects, subsequently felt lightheaded and passed out. Patient reports no blood thinners, states that she has no nausea or vomiting, no diarrhea symptoms. Reports otherwise normal state of health. States that she has been undergoing significant stress at home given she had a recent relocation. Also reports concern for hyperglycemia, history of diabetes, is on metformin that she intermittently takes. Denies any abdominal pain or neck pain.. 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 - Social history:: Smoking status: Patient denies any tobacco usage or history of. ROS: 13:49 Constitutional: as per hpi ec2 Exam: 13:49 Constitutional: GEN: No acute distress HEENT: -Head: no deformities -Eyes: EOMI CV: ec2 regular rate LUNGS: no respiratory distress ABD: non-tender SKIN: no wounds appreciated MSK: No C/T/L spine deformities RUE w/o bony deformity LUE w/o bony deformity RLE w/o bony deformity LLE w/o bony deformity NEURO: moves all extremities equally, GCS 15 (E4, V5, M6) Vital Signs: 13:43 BP 142 / 92; Pulse 109; Resp 18; Temp 98.6(O); Pulse Ox 97% on R/A; Weight 81.65 kg; hb Height 5 ft. 6 in. ; Pain 8/10; 16:04 BP 117 / 83; Pulse 88; Resp 18; Pulse Ox 100% on R/A; mb9 13:43 Body Mass Index 29.05 (81.65 kg, 167.64 cm) hb 13:43 Pain Scale: Adult hb MDM: 13:49 Patient medically screened. ec2 13:49 Data reviewed: vital signs. ED course: Patient arrives today for evaluation of syncopal ec2 episode. Will obtain lab work, EKG, urine studies to further assess the patient complaint. Currently considering process such as dehydration, electrolyte disturbances, anemia, low suspicion for ACS or PE given her story. Additionally no chest pain or difficulty breathing reported.. 13:59 ED course: EKG independently reviewed and interpreted by me, shows normal sinus rhythm, ec2 rate 95, no acute ST segment elevations, intervals are nonconcerning.. 14:58 ED course: Metabolic profile shows slight hyperglycemia, no evidence of renal ec2 dysfunction, CBC is reassuring. Troponin is within normal ranges. Pending urine studies. . 16:16 ED course: On reassessment patient remains well-appearing and in no acute distress. ec2 Pending urine studies.. 16:30 ED course: Urine infectious appearing, will start on antibiotics and follow-up with ec2 primary care doctor. Return precautions given.. 10/22 13:49 Order name: CBC with Diff; Complete Time: 14:58 ec2 10/22 13:49 Order name: CMP; Complete Time: 14:58 ec2 10/22 13:49 Order name: Troponin High Sensitivity; Complete Time: 14:58 ec2 10/22 13:49 Order name: Test, Urine; Complete Time: 16:24 ec2 10/22 13:49 Order name: UAM; Complete Time: 16:27 ec2 10/22 13:49 Order name: EKG; Complete Time: 13:49 ec2 10/22 13:49 Order name: EKG - Nurse/Tech; Complete Time: 14:01 ec2 Administered Medications: No medications were administered Disposition Summary: 10/22/23 16:30 Discharge Ordered Notes: Location: Home ec2 Condition: Stable ec2 Diagnosis - UTI/ Urinary tract infection, site not specified ec2 - Syncope Near ec2 Followup: ec2 - With: Private Physician - When: - Reason: Recheck today's complaints Discharge Instructions: - Discharge Summary Sheet ec2 - Urinary Tract Infection, Adult ec2 Forms: - Medication Reconciliation Form ec2 - Thank You Letter ec2 - Antibiotic Education ec2 - Prescription Opioid Use ec2 - Patient Portal Instructions ec2 - Leadership Thank You Letter ec2 Prescriptions: - Cephalexin 500 mg Oral capsule - take 1 capsule ORAL route every 12 hours for 5 days; 10 capsule; Refills: 0, ec2 Product Selection Permitted Signatures: Dispatcher [employer] Karina Oleary RN RN mb9 Greg Thornton MD MD ec2 Corrections: (The following items were deleted from the chart) 16:01 15:28 Chary negrete. ec2 mb9
[2023-10-22 17:56] VITALS: TEMP 98.6
[2023-10-22 18:06] VITALS: BP 117/83; O2SAT 100
--- NOTE | 2023-10-25 17:07 | EKG ---
Test Date: 2023-10-22 Test Time: 13:53:09 Assistant Hairstylist: MB MEASUREMENT RESULTS: Intervals: Rate: 95 WV: 134 QRSD: 80 QT: 334 QTc: 419 [place]: P: 66 WV: 134 QRS: 69 T: 64 INTERPRETIVE STATEMENTS: Normal sinus rhythm Cannot rule out Anterior infarct, age undetermined Abnormal ECG Compared to ECG 03/22/2021 02:12:00 Sinus tachycardia no longer present Myocardial infarct finding still present Electronically Signed On 10-25-23 16:59:51 CRIME SCENE ANALYST by Kade Duong
== END ==
LOC: ER 13:39
DX: N39.0 Urinary tract infection, site not specified (principal); E11.9 Type 2 diabetes mellitus without complications
CPT/HCPCS: 36415; 80053; 81001; 81025; 84484; 85025; 93005; 99284

== ENCOUNTER → 2023-11-11 | Emergency (ER) | payer SELFPAY ==
--- OUTSIDE RECORDS SUMMARY | 2023-11-11 20:56 | XMS REPORT | Continuity of Care Document ---
Author Name Unknown Address [address] [place] [address] [facility] thconnect Address [address] [place] [address] Care Team Providers Care Sign Fabricator Name Role Phone Pablo MOLINA, [facility] Primary Care Physician [phone] MEHOP_ELIGIBILITY Attending Clinician UnavailNANDO Schulz Attending Clinician Unavailable MARCO HELTON Attending Clinician Unavailable Marco Helton MD Attending Clinician [phone] ORA NOEL Attending Clinician Unavailable Mariama Spivey Attending Clinician [phone] MEHOP_ELIGIBILITY Admitting Clinician Unavailсергей morataya Payers Payer Name Policy Type Policy Number Effective Date Expirati on Date Source [employer] [place] [employer] [id number] 2018 00:00:00 MEDICAID SSI PENDING PENDING 2022 00:00:00 Problems Condition Name Condition Details Condition Category Status Onset Date Resolution Date Last Treatment Date Treating Clinician Comments Source Hyperglyce shaheen Hyperglyce shaheen Disease Active 04-21 00:00: 00 [facility] Obesity (BMI 30.0-34.9) Obesity (BMI 30.0-34.9) Disease Active 2017-10 00:00: 00 [facility] Irregular menstrual cycle Irregular menstrual cycle Disease Active 2017-10 00:00: 00 [facility] History of diet-contr olled diabetes History of diet-contr olled diabetes Disease Active 2017-10 00:00: 00 [facility] Allergies, Adverse Reactions, Alerts Allergy Name Allergy Type Status Severity Reaction(s) Onset Date Inactive Date Treating Clinician Comments Source NO KNOWN ALLERGIE S Drug Class Active [facility] Social History Social Habit Start Date Stop Date Quantity Comments Source Exposure to SARS-CoV-2 (event) 2022-04-11 00:00:00 2022-04-21 21:50:00 Not sure [facility] Alcohol intake 2021-08-07 00:00:00 2021-08-07 00:00:00 Current non-drinker of alcohol (finding) [facility] Tobacco use and exposure 2017-10-18 00:00:00 2017-10-18 00:00:00 Smokeless tobacco non-user [facility] Sex Assigned At 1975 00:00:00 1975 00:00:00 [facility] Smoking Status Start Date Stop Date Source Never smoked tobacco [facility] Medications Ordered Medication Name Filled Medication Name Start Date Stop Date Current Medication? Ordering Clinician Indication Dosage Frequency Signature (SIG) Comments Components Source insulin regular human (HUMULIN R) injection 6 Units 04-22 05:00: 00 04-22 03:57 :00 No 6U 6 Units, IV Push, ONCE, 1 dose, On Wed04/22/22 at 0000, Routine [facility] NaCl 0.9% (NS) bolus infusion 1,000 mL 04-22 04:00: 00 04-22 04:52 :00 No 1000mL at 999 mL/hr, 1,000 mL, IV Infusion, ONCE, 1 dose, On Wed04/21/22 at 2300, MELLO [facility] glipizide ER 5 mg tablet, extended release 24 hr 04-22 00:00: 00 No 1mg Dose Unknown 4-30 00:00: 00 No Dose Unknown 430 00:00: 00 No Dose Unknown 30 00:00: 00 No Dose Unknown 2022-0 4-30 [...] 3-29 00:00: 00 No Dose Unknown 2022-0 3 00:00: 00 No Dose Unknown 0 3 00:00: 00 No Dose Unknown 0 3 00:00: 00 No Dose Unknown 0 3 00:00: 00 No Dose Unknown 0 3 00:00: 00 No Dose Unknown 0 3 00:00: 00 No Dose Unknown 0 3 00:00: 00 No Dose Unknown 0 12-29 00:00: 00 No Dose Unknown 0 12-29 00:00: 00 No Dose Unknown 0 12-29 00:00: 00 No Dose Unknown 0 12-29 00:00: 00 No Dose Unknown 12-29 00:00: 00 No Zoloft 100 mg tablet 3- 00:00: 00 No 1mg hydroxyzine HCl 50 mg tablet 3- 00:00: 00 No 1mg Zoloft 50 mg tablet 2- 00:00: 00 No 1mg hydroxyzine HCl 10 mg tablet 0 2-14 00:00: 00 No 1mg Zoloft 50 mg tablet 0 1- 00:00: 00 No 1mg hydroxyzine HCl 10 mg tablet 0 1- 00:00: 00 No 1mg glipizide ER 5 mg tablet, extended release 24 hr 2020-10 2- 00:00: 00 No 1mg gabapentin 100 mg capsule 2020-10 2 00:00: 00 No 1mg cefTRIAXone (ROCEPHIN) 1,000 mg in NaCl 0.9% (NS) 50 mL MINI-BAG 2020-10 05:30: 00 08-08 05:05 :00 No 1000mg 1,000 mg, IV Piggyback, ONCE, 1 dose, On Wed08/08/21 at 0030, Administer over 30 Minutes, 50 mL
Reas on for Anti-Infec tive: Documented Infection< br>Documen jennifer Infection Site: Urine
D uration of Therapy: Other (see Comments) [facility] insulin regular human (HUMULIN R) injection 5 Units 2020-10 05:30: 00 08-08 04:32 :00 No 5U 5 Units, Subcutaneo us, ONCE, 1 dose, On Wed08/08/21 at 0030, Routine [facility] NaCl 0.9% (NS) IV infusion 1,000 mL 2020-10 04:45: 00 Yes 1000mL at 999 mL/hr, Intravenou s, CONTINUOUS , Starting on Natasha 08/07/21 at 2345, Until Discontinu ed, Routine [facility] Nitrofurant oin&Nit. Macrocryst (MACROBID) 100 mg capsule 2020-10 00:00: 00 Yes [id number] 100mg Take 1 capsule by mouth 2 (two) times daily. [facility] Nitrofurant oin&Nit. Macrocryst (MACROBID) 100 mg capsule 2020-10 00:00: 00 Yes [id number] 100mg Take 1 capsule by mouth 2 (two) times daily. [facility] glipizide ER 5 mg tablet, extended release 24 hr 2020-10 00:00: 00 No 1mg ondansetron (ZOFRAN (PF)) injection 4 mg 04-06 07:00: 00 04-06 06:15 :00 No 4mg 4 mg, Slow IV Push, ONCE, 1 dose, 04/06/20 at 0200, [facility] NaCl 0.9% (NS) bolus infusion 1,000 mL 04-06 06:00: 00 04-06 07:41 :00 No 1000mL at 999 mL/hr, 1,000 mL, IV Infusion, ONCE, 1 dose, 04/06/20 at 0100, [facility] ibuprofen (IBU) tablet 600 mg 04-06 05:45: 00 04-06 04:44 :00 No 600mg 600 mg, Oral, ONCE, 1 dose, 04/06/20 at 0045, [facility] NaCl 0.9% (NS) bolus infusion 1,000 mL 04-06 05:00: 00 04-06 07:41 :00 No 1000mL at 999 mL/hr, 1,000 mL, IV Infusion, ONCE, 1 dose, 04/06/20 at 0000, MELLO [facility] ondansetron (ZOFRAN ODT) 4 mg disintegrat ing tablet 04-06 00:00: 00 Yes [id number] 4mg Take 1 tablet by mouth every 8 (eight) hours as needed for Nausea and Vomiting (N/V). [facility] ondansetron (ZOFRAN ODT) 4 mg disintegrat ing tablet 04-06 00:00: 00 Yes [id number] 4mg Take 1 tablet by mouth every 8 (eight) hours as needed for Nausea and Vomiting (N/V). [facility] ondansetron (ZOFRAN ODT) 4 mg disintegrat ing tablet 04-06 00:00: 00 Yes [id number] 4mg Take 1 tablet by mouth every 8 (eight) hours as needed for Nausea and Vomiting (N/V). [facility] ondansetron (ZOFRAN ODT) 4 mg disintegrat ing tablet 04-06 00:00: 00 Yes [id number] 4mg Take 1 tablet by mouth every 8 (eight) hours as needed for Nausea and Vomiting (N/V). [facility] ondansetron (ZOFRAN ODT) 4 mg disintegrat ing tablet 04-06 00:00: 00 Yes [id number] 4mg Take 1 tablet by mouth every 8 (eight) hours as needed for Nausea and Vomiting (N/V). [facility] ondansetron (ZOFRAN ODT) 4 mg disintegrat ing tablet 04-06 00:00: 00 Yes [id number] 4mg Take 1 tablet by mouth every 8 (eight) hours as needed for Nausea and Vomiting (N/V). [facility] norgestimat e-ethinyl estradiol 0.18/0.215/ 0.25 mg-25 mcg tablet 2017-10 00:00: 00 Yes 1{tbl} Take 1 tablet by mouth daily. [facility] norgestimat e-ethinyl estradiol 0.18/0.215/ 0.25 mg-25 mcg tablet 2017-10 00:00: 00 Yes 1{tbl} Take 1 tablet by mouth daily. [facility] norgestimat e-ethinyl estradiol 0.18/0.215/ 0.25 mg-25 mcg tablet 2017-10 00:00: 00 Yes 1{tbl} Take 1 tablet by mouth daily. [facility] norgestimat e-ethinyl estradiol 0.18/0.215/ 0.25 mg-25 mcg tablet 2017-10 00:00: 00 Yes 1{tbl} Take 1 tablet by mouth daily. [facility] norgestimat e-ethinyl estradiol 0.18/0.215/ 0.25 mg-25 mcg tablet 2017-10 00:00: 00 Yes 1{tbl} Take 1 tablet by mouth daily. [facility] norgestimat e-ethinyl estradiol 0.18/0.215/ 0.25 mg-25 mcg tablet 2017-10 00:00: 00 Yes 1{tbl} Take 1 tablet by mouth daily. [facility] Vital Signs Vital Name Observation Time Observation Value Comments S jamie Systolic blood pressure 2022-04-22 04:52:00 104 mm[Hg] [facility] Diastolic blood pressure 2022-04-22 04:52:00 61 mm[Hg] [facility] Heart rate 2022-04-22 04:52:00 84 /min [facility] Respiratory rate 2022-04-22 04:52:00 23 /min [facility] Oxygen saturation in Arterial blood by Pulse oximetry 2022-04-22 04:52:00 98 /min [facility] Body temperature 2022-04-22 02:55:00 36.61 Danita [facility] Body height 2022-04-22 02:55:00 165.1 cm [facility] Body weight 2022-04-22 02:55:00 81.647 kg [facility] BMI 2022-04-22 02:55:00 29.95 kg/m2 [facility] Systolic blood pressure 2021-08-08 05:32:00 111 mm[Hg] [facility] Diastolic blood pressure 2021-08-08 05:32:00 85 mm[Hg] [facility] Heart rate 2021-08-08 05:32:00 102 /min [facility] Respiratory rate 2021-08-08 05:32:00 16 /min [facility] Oxygen saturation in Arterial blood by Pulse oximetry 2021-08-08 05:32:00 99 /min [facility] Body temperature 2021-08-08 03:02:00 37.33 Danita [facility] Body height 2021-08-08 03:02:00 165.1 cm [facility] Body weight 2021-08-08 03:02:00 83.915 kg [facility] BMI 2021-08-08 03:02:00 30.79 kg/m2 [facility] Systolic blood pressure 2020-04-06 07:00:00 109 mm[Hg] [facility] Diastolic blood pressure 2020-04-06 07:00:00 70 mm[Hg] [facility] Heart rate 2020-04-06 07:00:00 95 /min [facility] Respiratory rate 2020-04-06 07:00:00 23 /min [facility] Oxygen saturation in Arterial blood by Pulse oximetry 2020-04-06 07:00:00 94 /min [facility] Body temperature 2020-04-06 05:44:33 38.78 Danita [facility] Body height 2020-04-06 04:35:00 165.1 cm [facility] Body weight 2020-04-06 04:35:00 81.647 kg [facility] BMI 2020-04-06 04:35:00 29.95 kg/m2 [facility] Systolic blood pressure 2020-04-06 07:00:00 109 mm[Hg] [facility] Diastolic blood pressure 2020-04-06 07:00:00 70 mm[Hg] [facility] Heart rate 2020-04-06 07:00:00 95 /min [facility] Respiratory rate 2020-04-06 07:00:00 23 /min [facility] Oxygen saturation in Arterial blood by Pulse oximetry 2020-04-06 07:00:00 94 /min [place] [facility] Body temperature 2020-04-06 05:44:33 38.78 Danita [facility] Body height 2020-04-06 04:35:00 165.1 cm [facility] Body weight 2020-04-06 04:35:00 81.647 kg [facility] BMI 2020-04-06 04:35:00 29.95 kg/m2 [facility] BP Systolic 2022-04-22 09:03:00 115 mm[Hg] [...] Source POCT GLUCOSE (AUTOMATED) 2022-04-22 04:29:00 Alexy [facility] POCT GLUCOSE (AUTOMATED) 2022-04-22 03:56:00 Alexy [facility] URINALYSIS 2022-04-22 03:08:00 [facility] URINE DRUG (IMMUNOASSAY) - COMPREHENSIVE DRUG SCREEN W/O REFLEX 2022-04-22 03:08:00 Alexy [facility] COMP. METABOLIC PANEL ([id number]) 2022-04-22 03:02:00 Alexy [facility] CBC WITH DIFF 2022-04-22 03:02:00 Alexy [facility] POCT GLUCOSE (AUTOMATED) 2022-04-22 03:01:00 Alexy [facility] EKG-12 LEAD 2021-08-08 05:25:56 Marco Helton [facility] POCT GLUCOSE (AUTOMATED) 2021-08-08 05:09:00 Ean Helton [facility] COVID-19 (ID NOW RAPID TESTING) 2021-08-08 03:49:00 Marco Helton [facility] LIPASE 2021-08-08 03:49:00 Marco Helton [facility] MAGNESIUM 2021-08-08 03:49:00 Marco Helton [facility] TROPONIN I 2021-08-08 03:49:00 Marco Helton [facility] COMP. METABOLIC PANEL ([id number]) 2021-08-08 03:49:00 Marco Helton [facility] CBC WITH DIFF 2021-08-08 03:49:00 Marco [facility] 2021-08-08 03:49:00 Marco Helton [facility] POCT TEST 2020-04-06 05:55:00 Mariama Madrigal [facility] URINALYSIS 2020-04-06 05:05:00 [facility] LIPASE 2020-04-06 04:58:00 [facility] COMP. METABOLIC PANEL (11608) 2020-04-06 04:58:00 Mariama Madrigal [facility] N-TERMINAL PRO-BNP 2020-04-06 04:58:00 Mariama Madrigal [facility] CBC WITH DIFFERENTIAL 2020-04-06 04:58:00 Stewart Madrigal [facility] LACTIC ACID WHOLE BLOOD 2020-04-06 04:57:00 Me peggy Madrigal [facility] ASSIGNMENT OF BENEFITS 2020-04-06 04:23:58 Docto r Unassigned, [place] [facility] NOTICE OF PRIVACY PRACTICES 2020-04-06 04:23:28 Doctor Unassigned, [place] [facility] CONSENT/REFUSAL FOR DIAGNOSIS AND TREATMENT 2020-04-06 04:23:14 Doctor Unassigned, [place] [facility] Plan of Care Planned Activity Planned Date Details Comments Source Goal Plan of Care Note [code = 22167-5] Goal Plan of Care Note [code = 34715-9] Goal Plan of Care Note [code = 38052-2] Goal Plan of Care Note [code = 91211-8] Goal Plan of Care Note [code = 10295-9] Goal Plan of Care Note [code = 60232-3] Encounters Start Date/Time End Date/Time Encounter Type Admission Type Attending [facility] Care Department Encounter ID Source 2021-08-08 03:13:29 Emergency [facility] [id number] [facility] 2023-08-16 15:17:12 2023-08-16 15:17:12 Outpatient [facility] [id number] Ranjan Arredondo 2023-04-28 16:00:27 2023-04-28 16:00:27 Outpatient [facility] [id number] Ranjan F Arnulfo 2022-10-21 17:17:30 2022-10-21 17:17:30 Outpatient [facility] [id number] Ranjan Arredondo 2022-09-30 00:00:00 2022-09-30 00:00:00 [address] [facility] [id number] [facility] 2022-04-22 00:00:00 2022-04-22 00:00:00 Outpatient Visit [id number] 2022-04-21 21:49:00 2022-04-21 23:58:00 Emergency X NANDO TRACEY [facility] ERT [id number] [facility] 2022-04-21 21:49:00 2022-04-21 23:58:00 Emergency Nando Tracey [facility] [id number] [id number] [id number] [id number] [facility] 2021-08-07:55:00 2021-08-08 00:33:00 Emergency X MARCO HELTON [facility] ERT [id number] [facility] 2021-08-07 21:55:00 2021-08-08 00:33:00 Emergency Marco Helton [facility] 1.2.840.114 350.1.13.10 4.2.7.2.686 [id number] [facility] 2020-05-20 16:40:00 2020-05-20 16:40:00 Outpatient R BOBORA ALLEN [facility] [id number] [facility] 2020-04-08 00:00:00 2020-04-08 00:00:00 Letter (Out) Mariama Madrigal [facility] 1.2.840.114 350.1.13.10 4.2.7.2.686 [id number] [facility] 2020-04-08 00:00:00 2020-04-08 00:00:00 Letter (Out) Mariama Madrigal [facility] 1.2.840.114 350.1.13.10 4.2.7.2.686 [id number] [facility] 2020-04-08 00:00:00 2020-04-08 00:00:00 Letter (Out) Mariama Madrigal [facility] 1.2.840.114 350.1.13.10 4.2.7.2.686 [id number] [facility] 2020-04-08 00:00:00 2020-04-08 00:00:00 Letter (Out) Mariama Madrigal [facility] 1.2.840.114 350.1.13.10 4.2.7.2.686 [id number] 2020-04-08 00:00:00 2020-04-08 00:00:00 Letter (Out) Mariama Madrigal [facility] 1.2.840.114 350.1.13.10 4.2.7.2.686 [id number] 000 [id number] 2020-04-08 00:00:00 2020-04-08 00:00:00 Letter (Out) Mariama Madrigal [facility] 1.2.840.114 350.1.13.10 4.2.7.2.686 [id number] 000 [id number] 2020-04-05 23:30:47 2020-04-06 02:43:00 Emergency Mariama Madrigal [facility] 1.2.840.114 350.1.13.10 4.2.7.2.686 [id number] 2020-04-05 23:30:47 2020-04-06 02:43:00 Emergency MadrigalMariama fisher [facility] 1.2.840.114 350.1.13.10 4.2.7.2.686 [id number] [facility] Results Test Description Test Time Test Comments Results Result Co mments Source [facility] GLUCOSE (AUTOMATED)2022-04-22 04:08:37* Test Item Value Reference Range Interpretation Comme nts POCT GLU (test code = 4773170233) 455 mg/dL 70-110 HH Lab Interpretation (test cod e = 35617-9) Abnormal [facility] GLUCOSE (AUTOMATED)2022-04-22 03:05:52* Test Item Value Reference Range Interpretation Comme nts POCT GLU (test code = 2909071472) 444 mg/dL 70-110 H Lab Interpretation (test cod e = 67868-4) Abnormal [facility] GLUCOSE (AUTOMATED)2021-08-08 05:16:03* Test Item Value Reference Range Interpretation Comme nts POCT GLU (test code = 0068494182) 280 mg/dL 70-110 H Lab Interpretation (test cod e = 18136-6) [facility] [id number] 04:23:14* Test Item Value Reference Range Interpretation Comments TROPONIN I (test code = 4418295664) <0.012 See_Comment [Automated message] The system which [...] of biotin. Lab Interpretation (test code = 24291-5) [facility] 04:12:51* Test Item Value Reference Range Interpretation Comme nts MAGNESIUM (test code = 6878015933) 1.7 mg/dL 1.7-2.4 Lab Interpretation (test cod e = 82286-0) [facility]OLIC PANEL (11703)2021-08-08 04:12:10* Test Item Value Reference Range Interpretation Comme nts NA (test code = 4350066980) 133 mmol/L 135-145 L K (test code = 8761789913) 3.9 mmol/L 3.5-5.0 CL (test code = 8391706941) 97 mmol/L 98-108 L CO2 TOTAL (test code = 2380284622) 27 mmol/L 23-31 AGAP (test code = 1556063177) 2-16 BUN (test code = 4037222321) 13 mg/dL 7-23 GLUCOSE (test code = 8520593799) 334 mg/dL 70-110 H CREATININE (test code = 6928563308) 0.58 mg/dL 0.50-1.04 TOTAL BILI (test code = 0459713472) 1.5 mg/dL 0.1-1.1 H CALCIUM (test code = 2414920969) 10.0 mg/dL 8.6-10.6 T PROTEIN (test code = 4599465032) 7.9 g/dL 6.3-8.2 ALBUMIN (test code = 1778590453) 4.3 g/dL 3.5-5.0 ALK PHOS (test code = 6713465534) 183 U/L 34-122 H ALTv (test code = 1742-6) 20 U/L 5-35 AST(SGOT) (test code = 8893060195) 19 U/L 13-40 eGFR (test code = 9480274634) mL/min/1.73m2 HALEY (test code = HALEY) Association [...] imaging tests). Lab Interpretation (test code = 38574-3) [facility] 04:12:10* Test Item Value Reference Range Interpretation Comme nts LIPASE (test code = 0302851705) 117 U/L 0-220 Lab Interpretation (test cod e = 96427-9) Normal [facility] WITH [id number] 04:02:51* Test Item Value Reference Range Interpretation [...] 33.3 g/dL 31.6-35.1 RDW-SD (test code = 46761-4) 38.3 fL 39.0-49.9 L RDW-CV (test code = 788-0) 12.4 % 12.0-15.5 PLT (test code = 777-3) See_Comment [Automated messa ge] The system which generated this result transmitted reference range: 166 - 358 10*3/?L. The reference range was not used to interpret this result as normal/abnormal. MPV (test code = 26987-1) 11.7 fL 9.5-12.9 NRBC/100 WBC (test code = 5481011544) See_Comment [Automated RedSeguro ssage] The system which generated this result transmitted reference range: 0.0 - 10.0 /100 WBCs. The reference range was not used to interpret this result as normal/abnormal. NRBC x10^3 (test code = 3661536830) <0.01 See_Comment [Automated messa ge] The system which generated this result transmitted reference range: 10*3/?L. The reference range was not used to interpret this result as normal/abnormal. GRAN MAT (NEUT) % (test code = 770-8) 67.3 % IMM GRAN % (test code = 2493069377) 0.60 % LYMPH % (test code = 736-9) 22.5 % MONO % (test code = 5905-5) 7.7 % EOS % (test code = 713-8) 1.5 % BASO % (test code = 706-2) 0.4 % GRAN MAT x10^3(ANC) (test code = 7900136012) 4.87 10*3/uL 1.88-7.09 IMM GRAN x10^3 (test code = 4987228823) 0.04 10*3/uL 0.00-0.06 LYMPH x10^3 (test code = 731-0) 1.63 10*3/uL 1.32-3.29 MONO x10^3 (test code = 742-7) 0.56 10*3/uL 0.33-0.92 EOS x10^3 (test code = 711-2) 0.11 10*3/uL 0.03-0.39 BASO x10^3 (test code = 704-7) 0.03 10*3/uL 0.01-0.07 Lab Interpretation (test code = 15935-8) [facility] by RT-PCR (HIGH RISK) 2020-05-15 00:00:00* Test Item Value Reference Range Interpretation Comme nts SARS-CoV-2 INTERPRETATION (t est code = 35601) NEGATIVE SOURCE (test code = 51824) NOT SPECIFIED POCT [id number] 05:55:00* Test Item Value Reference Range Interpretation Comme nts POCT PREG (test code = 1605) Negative On board controls acceptable with C Line (test code = 3574) Present POCT PREG LOT # (test code = 3575) HCG [id number] POCT PREG TEST DATE ( test code = 3576) 07/10/2021 Lab Interpretation (test cod e = 57198-3) Normal [facility] [id number] 05:51:00* Test Item Value Reference Range Interpretation Comme nts NT-proBNP (test code = 5360065917) 55 pg/mL See_Comment [Automated message] The system which generated this result transmitted reference range: <=125. The reference range was not used to interpret this result as normal/abnormal. HALEY (test code = HALEY) Biotin has been reported to cause a negative bias, interpret results relative to patient's use of biotin. Lab Interpretation (test code = 21182-1) Normal [facility]. METABOLIC PANEL (93380)2020-04-06 05:42:00* Test Item Value Reference Range Interpretation Comme nts NA (test code = 7330994781) 134 mmol/L 135-145 L K (test code = 2550666294) 4.1 mmol/L 3.5-5 CL (test code = 6039734224) 101 mmol/L 98-108 CO2 TOTAL (test code = 4865949501) 24 mmol/L 23-31 AGAP (test code = 3101798171) 2-16 BUN (test code = 4074165693) 8 mg/dL 7-23 GLUCOSE (test code = 9659147847) 245 mg/dL 70-110 H CREATININE (test code = 5484415769) 0.66 mg/dL 0.5-1.04 TOTAL BILI (test code = 5400510676) 0.9 mg/dL 0.1-1.1 CALCIUM (test code = 6330967351) 9.4 mg/dL 8.6-10.6 T PROTEIN (test code = 1686565453) 8.3 g/dL 6.3-8.2 H ALBUMIN (test code = 7789498813) 4.5 g/dL 3.5-5 ALK PHOS (test code = 2540637331) 115 U/L 34-122 ALTv (test code = 1742-6) 31 U/L 5-35 AST(SGOT) (test code = 0893408719) 30 U/L 13-40 eGFR Calculation (Non-) (test code = 9771059569) mL/min/1.73m2 eGFR Calculation () (test code = 4288792348) mL/min/1.73m2 HALEY (test code = HALEY) Association [...] imaging tests). Lab Interpretation (test code = 95210-8) [facility] 05:42:00* Test Item Value Reference Range Interpretation Comme nts LIPASE (test code = 5153466286) 60 U/L 0-220 Lab Interpretation (test cod e = 56141-3) [facility]2020-[facility] 05:35:00* Test Item Value Reference Range Interpretation Comme nts APPEARANCE (test code = 3157617268) Cloudy Clear A COLOR (test code = 8119982483) Benita Yellow A PH (test code = 8738912144) 4.8-8.0 SP GRAVITY (test code = 2501510532) 1.003-1.030 GLU U QUAL (test code = 2233403521) Normal Normal BLOOD (test code = 2416570377) Negative Negative KETONES (test code = 5524571600) Negative Negative PROTEIN (test code = 2887-8) Negative Negative UROBILIN (test code = 0772747176) 4.0 mg/dL Normal A BILIRUBIN (test code = 5359314373) Negative Negative NITRITE (test code = 3170445633) Negative Negative LEUK PATRICIA (test code = 5209726979) Negative Negative RBC/HPF (test code = 6291034609) See_Comment [Automated messa ge] The system which generated this result transmitted reference range: 0 - 3 HPF. The reference range was not used to interpret this result as normal/abnormal. WBC/HPF (test code = 3541878572) See_Comment [Automated messa ge] The system which generated this result transmitted reference range: 0 - 5 HPF. The reference range was not used to interpret this result as normal/abnormal. BACTERIA (test code = 0279278113) Many Negative A MUCOUS (test code = [id number]) Slight Negative LPF A SQ EPITH (test code = 1553124613) HPF Lab Interpretation (test code = 07062-5) Abnormal [facility] WITH [id number] 05:26:00* Test Item Value Reference Range Interpretation [...] 33.9 g/dL 31.6-35.1 RDW-SD (test code = 27094-1) 39.8 fL 39-49.9 RDW-CV (test code = 788-0) 12.8 % 12-15.5 PLT (test code = 777-3) See_Comment [Automated StudyBluea ge] The system which generated this result transmitted reference range: 166 - 358 10*3/?L. The reference range was not used to interpret this result as normal/abnormal. MPV (test code = 97965-1) 11.8 fL 9.5-12.9 NRBC/100 WBC (test code = 8219167920) See_Comment [Automated RedSeguro ssage] The system which generated this result transmitted reference range: 0.0 - 10.0 /100 WBCs. The reference range was not used to interpret this result as normal/abnormal. NRBC x10^3 (test code = 3720913096) <0.01 See_Comment [Automated StudyBluea ge] The system which generated this result transmitted reference range: 10*3/?L. The reference range was not used to interpret this result as normal/abnormal. GRAN MAT (NEUT) % (test code = 770-8) 81.5 % IMM GRAN % (test code = 9057770090) 0.80 % LYMPH % (test code = 736-9) 7.7 % MONO % (test code = 5905-5) 7.2 % EOS % (test code = 713-8) 2.3 % BASO % (test code = 706-2) 0.5 % GRAN MAT x10^3(ANC) (test code = 4866657112) 4.95 10*3/uL 1.88-7.09 IMM GRAN x10^3 (test code = 3519214333) 0.05 10*3/uL 0-0.06 LYMPH x10^3 (test code = 731-0) 0.47 10*3/uL 1.32-3.29 L MONO x10^3 (test code = 742-7) 0.44 10*3/uL 0.33-0.92 EOS x10^3 (test code = 711-2) 0.14 10*3/uL 0.03-0.39 BASO x10^3 (test code = 704-7) 0.03 10*3/uL 0.01-0.07 Lab Interpretation (test code = 33118-9) [id number]:15:00* Test Item Value Reference Range Interpretation Comme nts LACTIC ACID (test code = 6423155150) 1.78 mmol/L 0.3-2.6 [facility]"
--- NOTE | 2023-11-11 21:15 | EDPHYS ---
Physician Documentation [facility] Name: Chelsie Zaragoza Age: 48 yrs Sex: Female : 1975 Arrival Date: 11/11/2023 Time: 20:52 Bed IW1 Private MD: ED Physician Jesse Guillermo HPI: 11/11 21:18 This 48 yrs old Female presents to ER via Ambulatory with complaints of Fall sb4 Injury. 21:18 patient states that she fell at work yesterday, hit her forehead on a sink and then sb4 fell onto her hands. was seen at an ED in [place], had negative scans, and was discharged with vicodin. states she is still in pain, has not taken any of the prescribed medications. 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 - Social history:: Smoking status: Patient denies any tobacco usage or history of. Patient/guardian denies using alcohol, street drugs. ROS: 21:18 Constitutional: Negative for fever, chills, and weight loss, sb4 21:18 MS/extremity: Positive for pain, of the face, scalp and chest, 21:18 All other systems are negative, Exam: 21:18 Constitutional: This is a well developed, well nourished patient who is awake, alert, sb4 and in no acute distress. Head/Face: Normocephalic, atraumatic. Eyes: Extra-ocular motions intact. Periorbital areas with no swelling, redness, or edema. ENT: Mucous membranes moist. Cardiovascular: Regular rate and rhythm with a normal S1 and S2. Respiratory: Lungs have equal breath sounds bilaterally, clear to auscultation and percussion. No rales, rhonchi or wheezes noted. No increased work of breathing, no retractions or nasal flaring. Abdomen/GI: Soft, non-tender, no distension. Skin: Warm, dry with normal turgor. Normal color with no rashes, no lesions, and no evidence of cellulitis. MS/ Extremity: Pulses equal, no cyanosis. Neurovascular intact. Full, normal range of motion. Neuro: Awake and alert, GCS 15, oriented to person, place, time, and situation. Motor strength 5/5 in all extremities. Sensory grossly intact. 21:18 Special observations: complaints out of proportion to exam, Vital Signs: 21:12 BP 130 / 89; Pulse 96; Resp 17 S; Temp 98.1(O); Pulse Ox 98% on R/A; Weight 81.65 kg lg3 (R); Height 5 ft. 5 in. (R); Pain 10/10; 21:12 Body Mass Index 29.95 (81.65 kg, 165.1 cm) lg3 21:12 Pain Scale: Adult lg3 MDM: 21:13 Patient medically screened. sb4 21:18 Data reviewed: vital signs, nurses notes, and as a result, I will discharge patient. sb4 Administered Medications: No medications were administered Disposition: 22:31 Co-signature as Attending Physician, Jesse Guillermo MD I reviewed the patient's care rt provided by the Advanced Practice Provider and agree with the diagnosis and treatment plan. Disposition Summary: 11/11/23 21:15 Discharge Ordered Notes: Location: Home sb4 Problem: an ongoing problem sb4 Symptoms: are unchanged sb4 Condition: Stable sb4 Diagnosis - Fall on same level from slipping, tripping and stumbling with subsequent striking sb4 against furniture, sequela Followup: sb4 - With: Private Physician - When: As needed - Reason: Recheck today's complaints, Re-evaluation by your physician Discharge Instructions: - Discharge Summary Sheet sb4 - Musculoskeletal Pain sb4 Forms: - Medication Reconciliation Form sb4 - Thank You Letter sb4 - Antibiotic Education sb4 - Prescription Opioid Use sb4 - Patient Portal Instructions sb4 - Leadership Thank You Letter sb4 Signatures: Sola Becerra RN RN lg3 Ronel Vieira, PASwetha PASwetha sb4 Jesse Guillermo MD MD rt
--- NOTE | 2023-11-11 21:15 | ER ---
Nurse's Notes [facility] Name: Chelsie Zaragoza Age: 48 yrs Sex: Female : 1975 Arrival Date: 11/11/2023 Time: 20:52 Bed IW1 Private MD: Diagnosis: Fall on same level from slipping, tripping and stumbling with subsequent striking against furniture, sequela Presentation: 11/11 21:12 Chief complaint: Patient states: fall yesterday at work. went to ER in [place]. All lg3 scans negative. pain all over. gave RX for Vicodin but hasn't taken it. Coronavirus screen: Client denies travel out of the [place] in the last 14 days. At this time, the client does not indicate any symptoms associated with coronavirus-19. Ebola Screen: No symptoms or risks identified at this time. Initial Sepsis Screen: Does the patient meet any 2 criteria? No. Patient's initial sepsis screen is negative. Does the patient have a suspected source of infection? No. Patient's initial sepsis screen is negative. Risk Assessment: Do you want to hurt yourself or someone else? Patient reports no desire to harm self or others. Onset of symptoms was November 10, 2023. 21:12 Method Of Arrival: Ambulatory lg3 21:12 Acuity: YANNA 4 lg3 Triage Assessment: 21:14 General: Appears in no apparent distress. Behavior is cooperative, flat. Pain: lg3 Complains of pain in all over. EENT: No deficits noted. No signs and/or symptoms were reported regarding the EENT system. Neuro: Yarbrough Agitation-Sedation Scale (RASS): -1 Drowsy Level of Consciousness is awake, obeys commands, Oriented to person, place, time, situation. Cardiovascular: No deficits noted. Capillary refill < 3 seconds Clubbing of nail beds is absent JVD is absent Patient's skin is warm and dry. Respiratory: No deficits noted. Airway is patent Respiratory effort is even, unlabored, Respiratory pattern is regular, symmetrical. GI: No deficits noted. No signs and/or symptoms were reported involving the gastrointestinal system. Abdomen is round non-distended. : No deficits noted. No signs and/or symptoms were reported regarding the genitourinary system. Derm: No deficits noted. No signs and/or symptoms reported regarding the dermatologic system. Skin is intact, is healthy with good turgor, Skin is dry, Skin is normal, Skin temperature is warm. Musculoskeletal: Circulation, motion, and sensation intact. Range of motion: intact in all extremities, Reports pain in all over. 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 - Social history:: Smoking status: Patient denies any tobacco usage or history of. Patient/guardian denies using alcohol, street drugs. Screenin:18 [facility] ED Fall Risk Assessment (Adult) History of falling in the last 3 months, lg3 including since admission Yes- single mechanical fall (1 pt). Abuse screen: Denies threats or abuse. Denies injuries from another. Nutritional screening: No deficits noted. Tuberculosis screening: No symptoms or risk factors identified. Assessment: 21:18 General: see triage assessment. lg3 Vital Signs: 21:12 BP 130 / 89; Pulse 96; Resp 17 S; Temp 98.1(O); Pulse Ox 98% on R/A; Weight 81.65 kg lg3 (R); Height 5 ft. 5 in. (R); Pain 10/10; 21:12 Body Mass Index 29.95 (81.65 kg, 165.1 cm) lg3 21:12 Pain Scale: Adult lg3 ED Course: 20:55 Patient arrived in ED. jj6 21:08 Ronel Vieira PA-C is PHCP. sb4 21:08 Jesse Guillermo MD is Attending Physician. sb4 21:14 Triage completed. lg3 21:14 Arm band placed on right wrist. lg3 21:18 Patient has correct armband on for positive identification. lg3 21:18 No provider procedures requiring assistance completed. Patient did not have IV access lg3 during this emergency room visit. Administered Medications: No medications were administered Medication: 21:22 VIS not applicable for this client. lg3 Outcome: 21:15 Discharge ordered by . sb4 21:18 Discharged to home ambulatory, lg3 21:18 Condition: stable 21:18 Discharge instructions given to patient, Instructed on discharge instructions, follow up and referral plans. Demonstrated understanding of instructions, follow-up care, 21:22 Patient left the ED. lg3 Signatures: Sola Becerra RN RN lg3 Tayla Livingstonj6 Ronel Vieira PASwetha PASwetha sb4
[2023-11-11 21:45] VITALS: BP 130/89; TEMP 98.1; O2SAT 98
== END ==
LOC: ER 20:52
DX: R51.9 Headache, unspecified (principal); R07.9 Chest pain, unspecified; W01.190S Fall on same level from slipping, tripping and stumbling with subsequent striking against furniture, sequela

== ENCOUNTER → 2023-12-23 | Emergency (ER) | payer SELFPAY ==
[~2023-12-23] MED LIST: MORPHINE 4 MG/ML SYR ONE
--- OUTSIDE RECORDS SUMMARY | 2023-12-23 22:38 | XMS REPORT | Continuity of Care Document ---
Author Name Unknown Address [address] [place] [address] [facility] thconnect Address [address] [place] [address] Care Team Providers Care Political Science Research Assistant Name Role Phone Pablo MOLINA, [facility] Primary Care Physician [phone] MEHOP_ELIGIBILITY Attending Clinician UnavailNANDO Schulz Attending Clinician Unavailable MARCO HELTON Attending Clinician Unavailable Marco Helton MD Attending Clinician [phone] ORA NOEL Attending Clinician Unavailable Mariama Spivey Attending Clinician [phone] MEHOP_ELIGIBILITY Admitting Clinician Unavailсергей morataya Payers Payer Name Policy Type Policy Number Effective Date Expirati on Date Source [employer] [place] [facility] [id number] 2018 00:00:00 MEDICAID SSI PENDING PENDING 2022 00:00:00 Problems Condition Name Condition Details Condition Category Status Onset Date Resolution Date Last Treatment Date Treating Clinician Comments Source Hyperglyce shaheen Hyperglyce shaheen Disease Active 04-21 00:00: 00 [facility] Obesity (BMI 30.0-34.9) Obesity (BMI 30.0-34.9) Disease Active 2017-10 00:00: 00 [facility] Irregular menstrual cycle Irregular menstrual cycle Disease Active 2017-10 00:00: 00 [facility] History of diet-contr olled diabetes History of diet-contr olled diabetes Disease Active 2017-10 00:00: 00 [facility] Allergies, Adverse Reactions, Alerts Allergy Name Allergy Type Status Severity Reaction(s) Onset Date Inactive Date Treating Clinician Comments Source NO KNOWN ALLERGIE S Drug Class Active [facility] Social History Social Habit Start Date Stop Date Quantity Comments Source Exposure to SARS-CoV-2 (event) 2022-04-11 00:00:00 2022-04-21 21:50:00 Not sure [facility] Alcohol intake 2021-08-07 00:00:00 2021-08-07 00:00:00 Current non-drinker of alcohol (finding) [facility] Tobacco use and exposure 2017-10-18 00:00:00 2017-10-18 00:00:00 Smokeless tobacco non-user [facility] Sex Assigned At 1975 00:00:00 1975 00:00:00 [facility] Smoking Status Start Date Stop Date Source Never smoked tobacco [facility] Medications Ordered Medication Name Filled Medication Name Start Date Stop Date Current Medication? Ordering Clinician Indication Dosage Frequency Signature (SIG) Comments Components Source insulin regular human (HUMULIN R) injection 6 Units 04-22 05:00: 00 04-22 03:57 :00 No 6U 6 Units, IV Push, ONCE, 1 dose, On Wed04/22/22 at 0000, Routine [facility] NaCl 0.9% (NS) bolus infusion 1,000 mL 04-22 04:00: 00 04-22 04:52 :00 No 1000mL at 999 mL/hr, 1,000 mL, IV Infusion, ONCE, 1 dose, On Wed04/21/22 at 2300, MELLO [facility] glipizide ER 5 mg tablet, extended release [...]
D uration of Therapy: Other (see Comments) [facility] insulin regular human (HUMULIN R) injection 5 Units 2020-10 05:30: 00 08-08 04:32 :00 No 5U 5 Units, Subcutaneo us, ONCE, 1 dose, On Wed08/08/21 at 0030, Routine [facility] NaCl 0.9% (NS) IV infusion 1,000 mL 2020-10 04:45: 00 Yes 1000mL at 999 mL/hr, Intravenou s, CONTINUOUS , Starting on Natasha 08/07/21 at 2345, Until Discontinu ed, Routine [facility] Nitrofurant oin&Nit. Macrocryst (MACROBID) 100 mg capsule 2020-10 00:00: 00 Yes [id number] 100mg Take 1 capsule by mouth 2 (two) times daily. [facility] Nitrofurant oin&Nit. Macrocryst (MACROBID) 100 mg capsule 2020-10 00:00: 00 Yes [id number] 100mg Take 1 capsule by mouth 2 (two) times daily. [facility] glipizide ER 5 mg tablet, extended release 24 hr 2020-10 00:00: 00 No 1mg ondansetron (ZOFRAN (PF)) injection 4 mg 04-06 07:00: 00 04-06 06:15 :00 No 4mg 4 mg, Slow IV Push, ONCE, 1 dose, 04/06/20 at 0200, [facility] NaCl 0.9% (NS) bolus infusion 1,000 mL 04-06 06:00: 00 04-06 07:41 :00 No 1000mL at 999 mL/hr, 1,000 mL, IV Infusion, ONCE, 1 dose, 04/06/20 at 0100, [facility] ibuprofen (IBU) tablet 600 mg 04-06 05:45: 00 04-06 04:44 :00 No 600mg 600 mg, Oral, ONCE, 1 dose, 04/06/20 at 0045, [facility] NaCl 0.9% (NS) bolus infusion 1,000 mL 04-06 05:00: 00 04-06 07:41 :00 No 1000mL at 999 mL/hr, 1,000 mL, IV Infusion, ONCE, 1 dose, 04/06/20 at 0000, MELLO [facility] ondansetron (ZOFRAN ODT) 4 mg disintegrat ing tablet 04-06 00:00: 00 Yes [id number] 4mg Take 1 tablet by mouth every 8 (eight) hours as needed for Nausea and Vomiting (N/V). [facility] ondansetron (ZOFRAN ODT) 4 mg disintegrat ing tablet 04-06 00:00: 00 Yes [id number] 4mg Take 1 tablet by mouth every 8 (eight) hours as needed for Nausea and Vomiting (N/V). [facility] ondansetron (ZOFRAN ODT) 4 mg disintegrat ing tablet 04-06 00:00: 00 Yes [id number] 4mg Take 1 tablet by mouth every 8 (eight) hours as needed for Nausea and Vomiting (N/V). [facility] ondansetron (ZOFRAN ODT) 4 mg disintegrat ing tablet 04-06 00:00: 00 Yes [id number] 4mg Take 1 tablet by mouth every 8 (eight) hours as needed for Nausea and Vomiting (N/V). [facility] ondansetron (ZOFRAN ODT) 4 mg disintegrat ing tablet 04-06 00:00: 00 Yes [id number] 4mg Take 1 tablet by mouth every 8 (eight) hours as needed for Nausea and Vomiting (N/V). [facility] ondansetron (ZOFRAN ODT) 4 mg disintegrat ing tablet 04-06 00:00: 00 Yes [id number] 4mg Take 1 tablet by mouth every 8 (eight) hours as needed for Nausea and Vomiting (N/V). [facility] norgestimat e-ethinyl estradiol 0.18/0.215/ 0.25 mg-25 mcg tablet 2017-10 00:00: 00 Yes 1{tbl} Take 1 tablet by mouth daily. [facility] norgestimat e-ethinyl estradiol 0.18/0.215/ 0.25 mg-25 mcg tablet 2017-10 00:00: 00 Yes 1{tbl} Take 1 tablet by mouth daily. [facility] norgestimat e-ethinyl estradiol 0.18/0.215/ 0.25 mg-25 mcg tablet 2017-10 00:00: 00 Yes 1{tbl} Take 1 tablet by mouth daily. [facility] norgestimat e-ethinyl estradiol 0.18/0.215/ 0.25 mg-25 mcg tablet 2017-10 00:00: 00 Yes 1{tbl} Take 1 tablet by mouth daily. [facility] norgestimat e-ethinyl estradiol 0.18/0.215/ 0.25 mg-25 mcg tablet 2017-10 00:00: 00 Yes 1{tbl} Take 1 tablet by mouth daily. [facility] norgestimat e-ethinyl estradiol 0.18/0.215/ 0.25 mg-25 mcg tablet 2017-10 00:00: 00 Yes 1{tbl} Take 1 tablet by mouth daily. [facility] Vital Signs Vital Name Observation Time Observation Value Comments S jamie Systolic blood pressure 2022-04-22 04:52:00 104 mm[Hg] [facility] Diastolic blood pressure 2022-04-22 04:52:00 61 mm[Hg] [facility] Heart rate 2022-04-22 04:52:00 84 /min [facility] Respiratory rate 2022-04-22 04:52:00 23 /min [facility] Oxygen saturation in Arterial blood by Pulse oximetry 2022-04-22 04:52:00 98 /min [facility] Body temperature 2022-04-22 02:55:00 36.61 Danita [facility] Body height 2022-04-22 02:55:00 165.1 cm [facility] Body weight 2022-04-22 02:55:00 81.647 kg [facility] BMI 2022-04-22 02:55:00 29.95 kg/m2 [facility] Systolic blood pressure 2021-08-08 05:32:00 111 mm[Hg] [facility] Diastolic blood pressure 2021-08-08 05:32:00 85 mm[Hg] [facility] Heart rate 2021-08-08 05:32:00 102 /min [facility] Respiratory rate 2021-08-08 05:32:00 16 /min [facility] Oxygen saturation in Arterial blood by Pulse oximetry 2021-08-08 05:32:00 99 /min [facility] Body temperature 2021-08-08 03:02:00 37.33 Danita [facility] Body height 2021-08-08 03:02:00 165.1 cm [facility] Body weight 2021-08-08 03:02:00 83.915 kg [facility] BMI 2021-08-08 03:02:00 30.79 kg/m2 [facility] Systolic blood pressure 2020-04-06 07:00:00 109 mm[Hg] [facility] Diastolic blood pressure 2020-04-06 07:00:00 70 mm[Hg] [facility] Heart rate 2020-04-06 07:00:00 95 [facility] Respiratory rate 2020-04-06 07:00:00 23 /min [facility] Oxygen saturation in Arterial blood by Pulse oximetry 2020-04-06 07:00:00 94 /min [facility] Body temperature 2020-04-06 05:44:33 38.78 Danita [facility] Body height 2020-04-06 04:35:00 165.1 cm [facility] Body weight 2020-04-06 04:35:00 81.647 kg [facility] BMI 2020-04-06 04:35:00 29.95 kg/m2 [facility] Systolic blood pressure 2020-04-06 07:00:00 109 mm[Hg] [facility] Diastolic blood pressure 2020-04-06 07:00:00 70 mm[Hg] [facility] Heart rate 2020-04-06 07:00:00 95 /min [facility] Respiratory rate 2020-04-06 07:00:00 23 /min [facility] Oxygen saturation in Arterial blood by Pulse oximetry 2020-04-06 07:00:00 94 /min [place] [facility] Body temperature 2020-04-06 05:44:33 38.78 Danita [facility] Body height 2020-04-06 04:35:00 165.1 cm [facility] Body weight 2020-04-06 04:35:00 81.647 kg [facility] BMI 2020-04-06 04:35:00 29.95 kg/m2 [facility] BP Systolic 2022-04-22 09:03:00 115 mm[Hg] [...] Source POCT GLUCOSE (AUTOMATED) 2022-04-22 04:29:00 [facility] PO[facility]SE (AUTOMATED) 2022-04-22 03:56:00 [facility] URINALYSIS 2022-04-22 03:08:00 [facility] URINE DRUG (IMMUNOASSAY) - COMPREHENSIVE DRUG SCREEN W/O REFLEX 2022-04-22 03:08:00 [facility] COMP. METABOLIC PANEL (80044) 2022-04-22 03:02:00 [facility] CBC WITH DIFF 2022-04-22 03:02:00 Alexy [facility] POCT GLUCOSE (AUTOMATED) 2022-04-22 03:01:00 [facility] EKG-12 LEAD 2021-08-08 05:25:56 Marco Helton [facility] POCT GLUCOSE (AUTOMATED) 2021-08-08 05:09:00 Ean Helton [facility] COVID-19 (ID NOW RAPID TESTING) 2021-08-08 03:49:00 Marco Helton [facility] LIPASE 2021-08-08 03:49:00 Marco Helton [facility] MAGNESIUM 2021-08-08 03:49:00 Marco Helton [facility] TROPONIN I 2021-08-08 03:49:00 Marco Helton [facility] COMP. METABOLIC PANEL (37634) 2021-08-08 03:49:00 Marco Helton [facility] CBC WITH DIFF 2021-08-08 03:49:00 [facility] 2021-08-08 03:49:00 Marco Helton [facility] POCT TEST 2020-04-06 05:55:00 Mariama Madrigal [facility] URINALYSIS 2020-04-06 05:05:00 [facility] LIPASE 2020-04-06 04:58:00 [facility] COMP. METABOLIC PANEL (31381) 2020-04-06 04:58:00 Mariama Madrigal [facility] N-TERMINAL PRO-BNP 2020-04-06 04:58:00 Mariama Madrigal [facility] CBC WITH DIFFERENTIAL 2020-04-06 04:58:00 Stewart Madrigal [facility] LACTIC ACID WHOLE BLOOD 2020-04-06 04:57:00 Me peggy Madrigal [facility] ASSIGNMENT OF BENEFITS 2020-04-06 04:23:58 Docto r Unassigned, [place] [facility] NOTICE OF PRIVACY PRACTICES 2020-04-06 04:23:28 Doctor Unassigned, [place] [facility] CONSENT/REFUSAL FOR DIAGNOSIS AND TREATMENT 2020-04-06 04:23:14 Doctor Unassigned, [place] [facility] Plan of Care Planned Activity Planned Date Details Comments Source Goal Plan of Care Note [code = 65389-1] Goal Plan of Care Note [code = 06590-6] Goal Plan of Care Note [code = 74852-7] Goal Plan of Care Note [code = 98315-1] Goal Plan of Care Note [code = 53866-0] Goal Plan of Care Note [code = 50169-3] Encounters Start Date/Time End Date/Time Encounter Type Admission Type Attending [facility] Facility Care Department Encounter ID Source 2021-08-08 03:13:29 Emergency [facility] [id number] [facility] 2023-08-16 15:17:12 2023-08-16 15:17:12 Outpatient [facility] [id number] Ranjan Arredondo 2023-04-28 16:00:27 2023-04-28 16:00:27 Outpatient [facility] [id number] Ranjan F Arnulfo 2022-10-21 17:17:30 2022-10-21 17:17:30 Outpatient [facility] [id number] Ranjan Arredondo 2022-09-30 00:00:00 2022-09-30 00:00:00 Outpatient LAHOP_ELIGI [facility] [id number] [facility] 2022-04-22 00:00:00 2022-04-22 00:00:00 Outpatient Visit [id number] 2022-04-21 21:49:00 2022-04-21 23:58:00 Emergency X NANDO TRACEY [facility] ERT [id number] [facility] 2022-04-21 21:49:00 2022-04-21 23:58:00 Emergency Nando Tracey [facility] 1.2.840.114 350.1.13.10 4.2.7.2.686 [id number] [facility] 2021-08-07:55:00 2021-08-08 00:33:00 Emergency X MARCO HELTON [facility] ERT [id number] [facility] 2021-08-07 21:55:00 2021-08-08 00:33:00 Emergency Marco Helton [facility] 1.2.840.114 350.1.13.10 4.2.7.2.686 [id number] [facility] 2020-05-20 16:40:00 2020-05-20 16:40:00 Outpatient R BOBORA ALLEN [facility] [id number] [facility] 2020-04-08 00:00:00 2020-04-08 00:00:00 Letter (Out) Mariama Madrigal [facility] 1.2.840.114 350.1.13.10 4.2.7.2.686 [id number] [facility] 2020-04-08 00:00:00 2020-04-08 00:00:00 Letter (Out) Mariama Madrigal [facility] 1.2.840.114 350.1.13.10 4.2.7.2.686 [id number] 000 [id number] [facility] 2020-04-08 00:00:00 2020-04-08 00:00:00 Letter (Out) Mariama Madrigal [facility] 1.2.840.114 350.1.13.10 4.2.7.2.686 [id number] [facility] 2020-04-08 00:00:00 2020-04-08 00:00:00 Letter (Out) Mariama Madrigal [facility] 1.2.840.114 350.1.13.10 4.2.7.2.686 [id number] 2020-04-08 00:00:00 2020-04-08 00:00:00 Letter (Out) Mariama Madrigal [facility] 1.2.840.114 350.1.13.10 4.2.7.2.686 [id number] 000 [id number] 2020-04-08 00:00:00 2020-04-08 00:00:00 Letter (Out) Mariama Madrigal [facility] 1.2.840.114 350.1.13.10 4.2.7.2.686 [id number] 000 [id number] 2020-04-05 23:30:47 2020-04-06 02:43:00 Emergency Mariama Madrigal [facility] 1.2.840.114 350.1.13.10 4.2.7.2.686 [id number] 2020-04-05 23:30:47 2020-04-06 02:43:00 Emergency MadrigalMariama fisher [facility] 1.2.840.114 350.1.13.10 4.2.7.2.686 [id number] [facility] Results Test Description Test Time Test Comments Results Result Co mments Source [facility] GLUCOSE (AUTOMATED)2022-04-22 04:08:37* Test Item Value Reference Range Interpretation Comme nts POCT GLU (test code = 0597894165) 455 mg/dL 70-110 HH Lab Interpretation (test cod e = 75231-3) Abnormal [facility] GLUCOSE (AUTOMATED)2022-04-22 03:05:52* Test Item Value Reference Range Interpretation Comme nts POCT GLU (test code = 3131187576) 444 mg/dL 70-110 H Lab Interpretation (test cod e = 39215-7) Abnormal [facility] GLUCOSE (AUTOMATED)2021-08-08 05:16:03* Test Item Value Reference Range Interpretation Comme nts POCT GLU (test code = 0626612910) 280 mg/dL 70-110 H Lab Interpretation (test cod e = 23411-9) [facility]normal [facility] [id number] 04:23:14* Test Item Value Reference Range Interpretation Comments TROPONIN I (test code = 9949427508) <0.012 See_Comment [Automated message] The system which [...] of biotin. Lab Interpretation (test code = 69067-6) [facility] 04:12:51* Test Item Value Reference Range Interpretation Comme nts MAGNESIUM (test code = 6486777551) 1.7 mg/dL 1.7-2.4 Lab Interpretation (test cod e = 16371-1) [facility]OLIC PAN[facility] (93773)2021-08-08 04:12:10* Test Item Value Reference Range Interpretation Comme nts NA (test code = 1796511023) 133 mmol/L 135-145 L K (test code = 9182044618) 3.9 mmol/L 3.5-5.0 CL (test code = 5298100606) 97 mmol/L 98-108 L CO2 TOTAL (test code = 1700000946) 27 mmol/L 23-31 AGAP (test code = 6216830693) 2-16 BUN (test code = 3789092249) 13 mg/dL 7-23 GLUCOSE (test code = 9475300095) 334 mg/dL 70-110 H CREATININE (test code = 0487365191) 0.58 mg/dL 0.50-1.04 TOTAL BILI (test code = 1015988524) 1.5 mg/dL 0.1-1.1 H CALCIUM (test code = 5714118482) 10.0 mg/dL 8.6-10.6 T PROTEIN (test code = 4397208727) 7.9 g/dL 6.3-8.2 ALBUMIN (test code = 5377603342) 4.3 g/dL 3.5-5.0 ALK PHOS (test code = 4641966321) 183 U/L 34-122 H ALTv (test code = 1742-6) 20 U/L 5-35 AST(SGOT) (test code = 0176936232) 19 U/L 13-40 eGFR (test code = 0238806987) mL/min/1.73m2 HALEY (test code = HALEY) Association [...] imaging tests). Lab Interpretation (test code = 87510-2) [facility] 04:12:10* Test Item Value Reference Range Interpretation Comme nts LIPASE (test code = 6057572817) 117 U/L 0-220 Lab Interpretation (test cod e = 03800-4) Normal [facility] WITH [id number] 04:02:51* Test Item Value Reference Range Interpretation [...] 33.3 g/dL 31.6-35.1 RDW-SD (test code = 04004-8) 38.3 fL 39.0-49.9 L RDW-CV (test code = 788-0) 12.4 % 12.0-15.5 PLT (test code = 777-3) See_Comment [Automated messa ge] The system which generated this result transmitted reference range: 166 - 358 10*3/?L. The reference range was not used to interpret this result as normal/abnormal. MPV (test code = 76415-5) 11.7 fL 9.5-12.9 NRBC/100 WBC (test code = 0393852873) See_Comment [Automated [employer] ssage] The system which generated this result transmitted reference range: 0.0 - 10.0 /100 WBCs. The reference range was not used to interpret this result as normal/abnormal. NRBC x10^3 (test code = 0037905377) <0.01 See_Comment [Automated messa ge] The system which generated this result transmitted reference range: 10*3/?L. The reference range was not used to interpret this result as normal/abnormal. GRAN MAT (NEUT) % (test code = 770-8) 67.3 % IMM GRAN % (test code = 6732212736) 0.60 % LYMPH % (test code = 736-9) 22.5 % MONO % (test code = 5905-5) 7.7 % EOS % (test code = 713-8) 1.5 % BASO % (test code = 706-2) 0.4 % GRAN MAT x10^3(ANC) (test code = 9228936268) 4.87 10*3/uL 1.88-7.09 IMM GRAN x10^3 (test code = 7460140741) 0.04 10*3/uL 0.00-0.06 LYMPH x10^3 (test code = 731-0) 1.63 10*3/uL 1.32-3.29 MONO x10^3 (test code = 742-7) 0.56 10*3/uL 0.33-0.92 EOS x10^3 (test code = 711-2) 0.11 10*3/uL 0.03-0.39 BASO x10^3 (test code = 704-7) 0.03 10*3/uL 0.01-0.07 Lab Interpretation (test code = 50137-3) [facility] by RT-PCR (HIGH RISK) 2020-05-15 00:00:00* Test Item Value Reference Range Interpretation Comme nts SARS-CoV-2 INTERPRETATION (t est code = 64190) NEGATIVE SOURCE (test code = 41052) NOT SPECIFIED POCT [id number] 05:55:00* Test Item Value Reference Range Interpretation Comme nts POCT PREG (test code = 1605) Negative On board controls acceptable with C Line (test code = 3574) Present POCT PREG LOT # (test code = 3575) HCG [id number] POCT PREG TEST DATE ( test code = 3576) 07/10/2021 Lab Interpretation (test cod e = 65137-6) Normal [facility] [id number] 05:51:00* Test Item Value Reference Range Interpretation Comme nts NT-proBNP (test code = 4942710139) 55 pg/mL See_Comment [Automated message] The system which generated this result transmitted reference range: <=125. The reference range was not used to interpret this result as normal/abnormal. HALEY (test code = HALEY) Biotin has been reported to cause a negative bias, interpret results relative to patient's use of biotin. Lab Interpretation (test code = 86197-0) Normal [facility]. METABOLIC PANEL (05992)2020-04-06 05:42:00* Test Item Value Reference Range Interpretation Comme nts NA (test code = 5897343138) 134 mmol/L 135-145 L K (test code = 7789372979) 4.1 mmol/L 3.5-5 CL (test code = 0217111886) 101 mmol/L 98-108 CO2 TOTAL (test code = 4469853697) 24 mmol/L 23-31 AGAP (test code = 8818326147) 2-16 BUN (test code = 0699451490) 8 mg/dL 7-23 GLUCOSE (test code = 2507903530) 245 mg/dL 70-110 H CREATININE (test code = 9387887703) 0.66 mg/dL 0.5-1.04 TOTAL BILI (test code = 1601806787) 0.9 mg/dL 0.1-1.1 CALCIUM (test code = 1671203478) 9.4 mg/dL 8.6-10.6 T PROTEIN (test code = 9685883454) 8.3 g/dL 6.3-8.2 H ALBUMIN (test code = 0566606306) 4.5 g/dL 3.5-5 ALK PHOS (test code = 7904061887) 115 U/L 34-122 ALTv (test code = 1742-6) 31 U/L 5-35 AST(SGOT) (test code = 8720619396) 30 U/L 13-40 eGFR Calculation (Non-) (test code = 3848466499) mL/min/1.73m2 eGFR Calculation () (test code = 4934229710) mL/min/1.73m2 HALEY (test code = HALEY) Association [...] imaging tests). Lab Interpretation (test code = 37937-9) [facility] 05:42:00* Test Item Value Reference Range Interpretation Comme nts LIPASE (test code = 2236334731) 60 U/L 0-220 Lab Interpretation (test cod e = 46395-3) [facility]2020-06[facility]27 05:35:00* Test Item Value Reference Range Interpretation Comme nts APPEARANCE (test code = 1033949115) Cloudy Clear A COLOR (test code = 7949966106) Benita Yellow A PH (test code = 2887772523) 4.8-8.0 SP GRAVITY (test code = 5292724733) 1.003-1.030 GLU U QUAL (test code = 1984591759) Normal Normal BLOOD (test code = 9848072988) Negative Negative KETONES (test code = 4088585659) Negative Negative PROTEIN (test code = 2887-8) Negative Negative UROBILIN (test code = 1586370989) 4.0 mg/dL Normal A BILIRUBIN (test code = 9107048483) Negative Negative NITRITE (test code = 4914632674) Negative Negative LEUK PATRICIA (test code = 6088845998) Negative Negative RBC/HPF (test code = 1948733961) See_Comment [Automated messa ge] The system which generated this result transmitted reference range: 0 - 3 HPF. The reference range was not used to interpret this result as normal/abnormal. WBC/HPF (test code = 1429085621) See_Comment [Automated messa ge] The system which generated this result transmitted reference range: 0 - 5 HPF. The reference range was not used to interpret this result as normal/abnormal. BACTERIA (test code = 4280608768) Many Negative A MUCOUS (test code = 1185952498) Slight Negative LPF A SQ EPITH (test code = 6123057084) HPF Lab Interpretation (test code = 44539-6) Abnormal [facility] WITH [id number] 05:26:00* Test Item Value Reference Range Interpretation [...] 33.9 g/dL 31.6-35.1 RDW-SD (test code = 50034-1) 39.8 fL 39-49.9 RDW-CV (test code = 788-0) 12.8 % 12-15.5 PLT (test code = 777-3) See_Comment [Automated [employer] ge] The system which generated this result transmitted reference range: 166 - 358 10*3/?L. The reference range was not used to interpret this result as normal/abnormal. MPV (test code = 32091-6) 11.8 fL 9.5-12.9 NRBC/100 WBC (test code = 0525207986) See_Comment [Automated [employer] ssage] The system which generated this result transmitted reference range: 0.0 - 10.0 /100 WBCs. The reference range was not used to interpret this result as normal/abnormal. NRBC x10^3 (test code = 3675149623) <0.01 See_Comment [Automated [employer] ge] The system which generated this result transmitted reference range: 10*3/?L. The reference range was not used to interpret this result as normal/abnormal. GRAN MAT (NEUT) % (test code = 770-8) 81.5 % IMM GRAN % (test code = 6668391972) 0.80 % LYMPH % (test code = 736-9) 7.7 % MONO % (test code = 5905-5) 7.2 % EOS % (test code = 713-8) 2.3 % BASO % (test code = 706-2) 0.5 % GRAN MAT x10^3(ANC) (test code = 1422517774) 4.95 10*3/uL 1.88-7.09 IMM GRAN x10^3 (test code = 7236387469) 0.05 10*3/uL 0-0.06 LYMPH x10^3 (test code = 731-0) 0.47 10*3/uL 1.32-3.29 L MONO x10^3 (test code = 742-7) 0.44 10*3/uL 0.33-0.92 EOS x10^3 (test code = 711-2) 0.14 10*3/uL 0.03-0.39 BASO x10^3 (test code = 704-7) 0.03 10*3/uL 0.01-0.07 Lab Interpretation (test code = 72215-1) [facility]normal [facility] [id number] 05:15:00* Test Item Value Reference Range Interpretation Comme nts LACTIC ACID (test code = 1295828866) 1.78 mmol/L 0.3-2.6 [facility]"
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
[2023-12-24 01:46] VITALS: BP 115/81; TEMP 97; O2SAT 100
--- NOTE | 2023-12-25 13:55 | RAD REPORT ---
EXAM DESCRIPTION: RAD - Foot Left 3 View - 12/24/2023 12:23 am CLINICAL HISTORY: 48 years Female PAIN TECHNIQUE: 3 views of the left foot COMPARISON: No prior exams provided for comparison. FINDINGS: There is no left foot fracture, dislocation, or evidence of avascular necrosis. Visualized joint spaces are preserved. No foreign body or aggressive osseous lesion. Small plantar and posterio r calcaneal enthesophytes. IMPRESSION: No acute findings the left foot. Electronically signed by: Rachel Rocha MD 12/24/2023 12:36 AM CDT Due to temporary technical issues with the PACS/Fluency reporting system, reports are being signed by the in house radiologists without review as a courtesy to insure prompt reporting. The interpreting radiologist is fully responsible for the content of the report.
--- NOTE | 2023-12-25 13:58 | RAD REPORT ---
EXAM DESCRIPTION: US - Extremity Venous Uni Ltd - 12/23/2023 11:45 pm CLINICAL HISTORY: 48 years, Female, PAIN COMPARISON: None FINDINGS: Multiple grayscale images as well as duplex Doppler ultrasound with a color flow and spect ral waveform of the left lower extremity were performed. Left common femoral vein, left superficial femoral vein, left popliteal vein, left posterior tibial a nd peroneal veins at the level of the calf and ankle were imaged. Spectral waveform demonstrate nor mal compressibility and phasicity. No intraluminal defects were seen. IMPRESSION: No sonographic evidence of deep venous thrombosis of the left lower extremity. Electronically signed by: Moses Resendez MD 12/24/2023 12:09 AM CDT Due to temporary technical issues with the PACS/Fluency reporting system, reports are being signed by the in house radiologists without review as a courtesy to insure prompt reporting. The interpreting radiologist is fully responsible for the content of the report.
== END ==
LOC: ER 22:34
DX: M79.672 Pain in left foot (principal); M79.662 Pain in left lower leg
CPT/HCPCS: 93971; 96374; 99284

== ENCOUNTER 2024-04-07 05:44 | Emergency (ER) | payer SELFPAY ==
--- OUTSIDE RECORDS SUMMARY | 2024-04-07 05:48 | XMS REPORT | Continuity of Care Document ---
Author Name Unknown Address [address] [place] [address] [facility] thconnect Address [address] [place] [address] Care Team Providers Care Quality Checker Name Role Phone Alden Shah MD Primary Care Physician [phone] OZIEL REBOLLEDO Attending Clinician Unavailable MEHOP_ELIGIBILITY Attending Clinician Unavailabl e NANDO TRACEY Attending Clinician Unavailable MARCO HELTON Attending Clinician Unavailable Marco Helton MD Attending Clinician [phone] ORA NOEL Attending Clinician Unavailable Mariama Spivey Attending Clinician [phone] MEHOP_ELIGIBILITY Admitting Clinician Unavailabl e Payers Payer Name Policy Type Policy Number Effective Date Expirati on Date Source [employer] [place] [facility] [id number] 2018 00:00:00 MEDICAID SSI PENDING PENDING 2022 00:00:00 Problems Condition Name Condition Details Condition Category Status Onset Date Resolution Date Last Treatment Date Treating Clinician Comments Source Hyperglyce shaheen Hyperglyce shaheen Disease Active 04-21 00:00: 00 [facility] Obesity (BMI 30.0-34.9) Obesity (BMI 30.0-34.9) Disease Active 2017-10 00:00: 00 [facility] Irregular menstrual cycle Irregular menstrual cycle Disease Active 2017-10 00:00: 00 [facility] History of diet-contr olled diabetes History of diet-contr olled diabetes Disease Active 2017-10 00:00: 00 [facility] Allergies, Adverse Reactions, Alerts Allergy Name Allergy Type Status Severity Reaction(s) Onset Date Inactive Date Treating Clinician Comments Source NO KNOWN ALLERGIE S Drug Class Active [facility] Social History Social Habit Start Date Stop Date Quantity Comments Source Exposure to SARS-CoV-2 (event) 2022-04-11 00:00:00 2022-04-21 21:50:00 Not sure [facility] Alcohol intake 2021-08-07 00:00:00 2021-08-07 00:00:00 Current non-drinker of alcohol (finding) [facility] Tobacco use and exposure 2017-10-18 00:00:00 2017-10-18 00:00:00 Smokeless tobacco non-user [facility] Sex Assigned At 1975 00:00:00 1975 00:00:00 [facility] Smoking Status Start Date Stop Date Source Never smoked tobacco [facility] Medications Ordered Medication Name Filled Medication Name Start Date Stop Date Current Medication? Ordering Clinician Indication Dosage Frequency Signature (SIG) Comments Components Source insulin regular human (HUMULIN R) injection 6 Units 04-22 05:00: 00 04-22 03:57 :00 No 6U 6 Units, IV Push, ONCE, 1 dose, On Wed04/22/22 at 0000, Routine [facility] NaCl 0.9% (NS) bolus infusion 1,000 mL 04-22 04:00: 00 04-22 04:52 :00 No 1000mL at 999 mL/hr, 1,000 mL, IV Infusion, ONCE, 1 dose, On Wed04/21/22 at 2300, MELLO [facility] glipizide ER 5 mg tablet, extended release 24 hr 04-22 00:00: 00 No 1mg Dose Unknown 2022-0 4-30 00:00: 00 No Dose Unknown 2022-0 4-30 00:00: 00 No Dose Unknown 2022-0 4-30 00:00: 00 No Dose Unknown 2022-0 4-30 00:00: 00 No Dose Unknown 2022-0 4-30 00:00: 00 No Dose Unknown 2022-0 4-30 00:00: 00 No Dose Unknown 2022-0 4-28 [...] 3-29 00:00: 00 No Dose Unknown 2022-0 3-21 00:00: 00 No Dose Unknown 2022-0 3-21 00:00: 00 No Dose Unknown 2022-0 3-21 00:00: 00 No Dose Unknown 2022-0 3-21 00:00: 00 No Dose Unknown 2022-0 3-21 00:00: 00 No Dose Unknown 12-29 00:00: 00 No Zoloft 100 mg tablet - 00:00: 00 No 1mg hydroxyzine HCl 50 mg tablet 12-15 00:00: 00 No 1mg Zoloft 50 mg tablet 11-24 00:00: 00 No 1mg hydroxyzine HCl 10 mg tablet 11-24 00:00: 00 No 1mg Zoloft 50 mg tablet 11-05 00:00: 00 No 1mg hydroxyzine HCl 10 mg tablet 11-05 00:00: 00 No 1mg glipizide ER 5 [...]
D uration of Therapy: Other (see Comments) [facility] insulin regular human (HUMULIN R) injection 5 Units 2020-10 05:30: 00 08-08 04:32 :00 No 5U 5 Units, Subcutaneo us, ONCE, 1 dose, On Wed08/08/21 at 0030, Routine [facility] NaCl 0.9% (NS) IV infusion 1,000 mL 2020-10 04:45: 00 Yes 1000mL at 999 mL/hr, Intravenou s, CONTINUOUS , Starting on Natasha 08/07/21 at 2345, Until Discontinu ed, Routine [facility] Nitrofurant oin&Nit. Macrocryst (MACROBID) 100 mg capsule 2020-10 00:00: 00 Yes [id number] 100mg Take 1 capsule by mouth 2 (two) times daily. [facility] glipizide ER 5 mg tablet, extended release 24 hr 2020-10 00:00: 00 No 1mg ondansetron (ZOFRAN (PF)) injection 4 mg 04-06 07:00: 00 04-06 06:15 :00 No 4mg 4 mg, Slow IV Push, ONCE, 1 dose, 04/06/20 at 0200, [facility] NaCl 0.9% (NS) bolus infusion 1,000 mL 04-06 06:00: 00 04-06 07:41 :00 No 1000mL at 999 mL/hr, 1,000 mL, IV Infusion, ONCE, 1 dose, 04/06/20 at 0100, [facility] ibuprofen (IBU) tablet 600 mg 04-06 05:45: 00 04-06 04:44 :00 No 600mg 600 mg, Oral, ONCE, 1 dose, 04/06/20 at 0045, [facility] NaCl 0.9% (NS) bolus infusion 1,000 mL 04-06 05:00: 00 04-06 07:41 :00 No 1000mL at 999 mL/hr, 1,000 mL, IV Infusion, ONCE, 1 dose, 04/06/20 at 0000, [facility] ondansetron (ZOFRAN ODT) 4 mg disintegrat ing tablet 04-06 00:00: 00 Yes [id number] 4mg Take 1 tablet by mouth every 8 (eight) hours as needed for Nausea and Vomiting (N/V). [facility] norgestimat e-ethinyl estradiol 0.18/0.215/ 0.25 mg-25 mcg tablet 2017-10 00:00: 00 Yes 1{tbl} Take 1 tablet by mouth daily. [facility] Vital Signs Vital Name Observation Time Observation Value Comments S ource Systolic blood pressure 2022-04-22 04:52:00 104 mm[Hg] [facility] acute hospital Diastolic blood pressure 2022-04-22 04:52:00 61 mm[Hg] [facility] acute hospital Heart rate 2022-04-22 04:52:00 84 /min [facility] Respiratory rate 2022-04-22 04:52:00 23 /min [facility] Oxygen saturation in Arterial blood by Pulse oximetry 2022-04-22 04:52:00 98 /min [facility] acute hospital Body temperature 2022-04-22 02:55:00 36.61 Danita [facility] Body height 2022-04-22 02:55:00 165.1 cm [facility] Body weight 2022-04-22 02:55:00 81.647 kg [facility] BMI 2022-04-22 02:55:00 29.95 kg/m2 [facility] Systolic blood pressure 2021-08-08 05:32:00 111 mm[Hg] [facility] acute hospital Diastolic blood pressure 2021-08-08 05:32:00 85 mm[Hg] General acute hospital Heart rate 2021-08-08 05:32:00 102 /min [facility] Respiratory rate 2021-08-08 05:32:00 16 /min [facility] Oxygen saturation in Arterial blood by Pulse oximetry 2021-08-08 05:32:00 99 /min [facility] acute hospital Body temperature 2021-08-08 03:02:00 37.33 Danita [facility] Body height 2021-08-08 03:02:00 165.1 cm [facility] Body weight 2021-08-08 03:02:00 83.915 kg [facility] BMI 2021-08-08 03:02:00 30.79 kg/m2 [facility] Systolic blood pressure 2020-04-06 07:00:00 109 mm[Hg] [facility] acute hospital Diastolic blood pressure 2020-04-06 07:00:00 70 mm[Hg] General acute hospital Heart rate 2020-04-06 07:00:00 95 /min [facility] Respiratory rate 2020-04-06 07:00:00 23 /min [facility] Oxygen saturation in Arterial blood by Pulse oximetry 2020-04-06 07:00:00 94 /min [facility] acute hospital Body temperature 2020-04-06 05:44:33 38.78 Danita [facility] Body height 2020-04-06 04:35:00 165.1 cm [facility] Body weight 2020-04-06 04:35:00 81.647 kg [facility] BMI 2020-04-06 04:35:00 29.95 kg/m2 [facility] Systolic blood pressure 2020-04-06 07:00:00 109 mm[Hg] General acute hospital Diastolic blood pressure 2020-04-06 07:00:00 70 mm[Hg] General acute hospital Heart rate 2020-04-06 07:00:00 95 /min [facility] Respiratory rate 2020-04-06 07:00:00 23 /min [facility] Oxygen saturation in Arterial blood by Pulse oximetry 2020-04-06 07:00:00 94 /min General acute hospital Body temperature 2020-04-06 05:44:33 38.78 [facility] Body height 2020-04-06 04:35:00 165.1 cm [facility] Body weight 2020-04-06 04:35:00 81.647 kg [facility] BMI 2020-04-06 04:35:00 29.95 kg/m2 [facility] Respiratory Rate 2022-04-22 09:03:00 16.00 /min BP Systolic 2022-04-22 09:03:00 115 mm[Hg] BP Diastolic 2022-04-22 09:03:00 79 mm[Hg] Weight Measured 2022-04-22 09:03:00 186.60 pounds Height Measured 2022-04-22 09:03:00 65.00 inches Body Temperature 2022-04-22 09:03:00 97.70 degrees Heart Rate 2022-04-22 09:03:00 96.00 /min BP Systolic 2021-11-24 15:14:00 128 mm[Hg] [...] Clinician Source POCT GLUCOSE (AUTOMATED) 2022-04-22 04:29:00 Nando Tracey [facility] POCT GLUCOSE (AUTOMATED) 2022-04-22 03:56:00 Nando Tracey [facility] URINALYSIS 2022-04-22 03:08:00 Nando Tracey [facility] URINE DRUG (IMMUNOASSAY) - COMPREHENSIVE DRUG SCREEN W/O REFLEX 2022-04-22 03:08:00 Alexy [facility] COMP. METABOLIC PANEL (83839) 2022-04-22 03:02:00 Alexy [facility] CBC WITH DIFF 2022-04-22 03:02:00 Alexy [facility] POCT GLUCOSE (AUTOMATED) 2022-04-22 03:01:00 Alexy [facility] EKG-12 LEAD 2021-08-08 05:25:56 Marco Helton [facility] POCT GLUCOSE (AUTOMATED) 2021-08-08 05:09:00 Ean Helton [facility] COVID-19 (ID NOW RAPID TESTING) 2021-08-08 03:49:00 Marco Helton [facility] LIPASE 2021-08-08 03:49:00 Marco Helton [facility] MAGNESIUM 2021-08-08 03:49:00 Marco Helton [facility] TROPONIN I 2021-08-08 03:49:00 Marco Helton [facility] COMP. METABOLIC PANEL (28220) 2021-08-08 03:49:00 Marco Helton [facility] CBC WITH DIFF 2021-08-08 03:49:00 [facility] 2021-08-08 03:49:00 Marco Helton [facility] POCT TEST 2020-04-06 05:55:00 Mariama Madrigal [facility] URINALYSIS 2020-04-06 05:05:00 [facility] LIPASE 2020-04-06 04:58:00 [facility] COMP. METABOLIC PANEL (64207) 2020-04-06 04:58:00 Mariama Madrigal [facility] N-TERMINAL PRO-BNP 2020-04-06 04:58:00 Mariama Madrigal [facility] CBC WITH DIFFERENTIAL 2020-04-06 04:58:00 Stewart Madrigal [facility] LACTIC ACID WHOLE BLOOD 2020-04-06 04:57:00 Me peggy Madrigal [facility] ASSIGNMENT OF BENEFITS 2020-04-06 04:23:58 Docto r Unassigned, [place] [facility] NOTICE OF PRIVACY PRACTICES 2020-04-06 04:23:28 Doctor Unassigned, [place] [facility] CONSENT/REFUSAL FOR DIAGNOSIS AND TREATMENT 2020-04-06 04:23:14 Doctor Unassigned, [place] [facility] Plan of Care Planned Activity Planned Date Details Comments Source Goal Plan of Care Note [code = 59088-1] Goal Plan of Care Note [code = 77317-2] Goal Plan of Care Note [code = 56632-7] Goal Plan of Care Note [code = 39859-8] Goal Plan of Care Note [code = 68875-0] Goal Plan of Care Note [code = 15007-8] Encounters Start Date/Time End Date/Time Encounter Type Admission Type Attending Clinicians Care Facility Care Department Encounter ID Source 2023-11-06 18:40:47 Outpatient RONA BOXSarah [id number] [facility] 2021-08-08 03:13:29 Emergency [facility] [id number] [facility] 2024-02-09 13:06:43 2024-02-09 13:06:43 Outpatient SFA SFA [id number] Ranjan Arredondo 2023-11-10 14:45:00 2023-11-10 17:30:00 Emergency OZIEL HOBSON [facility] [id number] [facility] 2023-08-16 15:17:12 2023-08-16 15:17:12 Outpatient SFA SFA [id number] Ranjan Arredondo 2023-04-28 16:00:27 2023-04-28 16:00:27 Outpatient SFA SFA [id number] Ranjan Arredondo 2022-10-21 17:17:30 2022-10-21 17:17:30 Outpatient [facility] [id number] Ranjan Arredondo 2022-09-30 00:00:00 2022-09-30 00:00:00 Outpatient MEHOP_ALEXANDRO WALTERSITY MEHOP MEHOP [id number] [facility] 2022-04-22 00:00:00 2022-04-22 00:00:00 Outpatient Visit [id number] 2022-04-21 21:49:00 2022-04-21 23:58:00 Emergency X NANDO TRACEY [facility] ERT [id number] [facility] 2022-04-21 21:49:00 2022-04-21 23:58:00 Emergency Nando Tracey [facility] [id number] 350.1.13.10 4.2.7.2.686 [id number] [facility] 2021-08-07 21:55:00 2021-08-08 00:33:00 Emergency MARCO LAW [facility] ERT [id number] [facility] 2021-08-07 21:55:00 2021-08-08 00:33:00 Emergency Marco Helton S [facility] [id number] 350.1.13.10 4.2.7.2.686 [id number] [facility] 2020-05-20 16:40:00 2020-05-20 16:40:00 Outpatient ORA BRUSH [facility] [id number] [facility] 2020-04-08 00:00:00 2020-04-08 00:00:00 Letter (Out) Mariama Madrigal [facility] 1.2.840.114 350.1.13.10 4.2.7.2.686 [id number] 000 [id number] 2020-04-08 00:00:00 2020-04-08 00:00:00 Letter (Out) Mariama Madrigal [facility] 1.2.840.114 350.1.13.10 4.2.7.2.686 [id number] 2020-04-08 00:00:00 2020-04-08 00:00:00 Letter (Out) Mariama Madrigal [facility] 1.2.840.114 350.1.13.10 4.2.7.2.686 [id number] [facility] 2020-04-08 00:00:00 2020-04-08 00:00:00 Letter (Out) Mariama Madrigal [facility] 1.2.840.114 350.1.13.10 4.2.7.2.686 [id number] 000 [id number] [facility] 2020-04-08 00:00:00 2020-04-08 00:00:00 Letter (Out) Mariama Madrigal [facility] 1.2.840.114 350.1.13.10 4.2.7.2.686 [id number] 000 [id number] [facility] 2020-04-08 00:00:00 2020-04-08 00:00:00 Letter (Out) Mariama Madrigal [facility] 1.2.840.114 350.1.13.10 4.2.7.2.686 [id number] 2020-04-05 23:30:47 2020-04-06 02:43:00 Emergency Mariama Madrigal [facility] 1.2.840.114 350.1.13.10 4.2.7.2.686 [id number] 2020-04-05 23:30:47 2020-04-06 02:43:00 Emergency Mariama Madrigal [facility] 1.2.840.114 350.1.13.10 4.2.7.2.686 [id number] [facility] Results Test Description Test Time Test Comments Results Result Co mments Source General acute hospital GLUCOSE (AUTOMATED)2022-04-22 04:08:37* Test Item Value Reference Range Interpretation Comme nts POCT GLU (test code = 6557933260) 455 mg/dL 70-110 HH Lab Interpretation (test cod e = 57560-9) Abnormal General acute hospital GLUCOSE (AUTOMATED)2022-04-22 03:05:52* Test Item Value Reference Range Interpretation Comme nts POCT GLU (test code = 8240414348) 444 mg/dL 70-110 H Lab Interpretation (test cod e = 01664-1) Abnormal General acute hospital GLUCOSE (AUTOMATED)2021-08-08 05:16:03* Test Item Value Reference Range Interpretation Comme nts POCT GLU (test code = 4120803364) 280 mg/dL 70-110 H Lab Interpretation (test cod e = 23013-8) Abnormal [facility] [id number] 04:23:14* Test Item Value Reference Range Interpretation Comments TROPONIN I (test code = 6089953814) <0.012 See_Comment [Automated message] The system which [...] of biotin. Lab Interpretation (test code = 14208-1) Normal [facility]2021-10-29 04:12:51* Test Item Value Reference Range Interpretation Comme nts MAGNESIUM (test code = 1954335234) 1.7 mg/dL 1.7-2.4 Lab Interpretation (test cod e = 01252-0) Normal [facility] PAN[facility] (54089)2021-08-08 04:12:10* Test Item Value Reference Range Interpretation Comme nts NA (test code = 5770443169) 133 mmol/L 135-145 L K (test code = 8296190131) 3.9 mmol/L 3.5-5.0 CL (test code = 1664772954) 97 mmol/L 98-108 L CO2 TOTAL (test code = 1928002986) 27 mmol/L 23-31 AGAP (test code = 5561750033) 2-16 BUN (test code = 1724218210) 13 mg/dL 7-23 GLUCOSE (test code = 9580030471) 334 mg/dL 70-110 H CREATININE (test code = 3300870118) 0.58 mg/dL 0.50-1.04 TOTAL BILI (test code = 7743458239) 1.5 mg/dL 0.1-1.1 H CALCIUM (test code = 5950047060) 10.0 mg/dL 8.6-10.6 T PROTEIN (test code = 9072957596) 7.9 g/dL 6.3-8.2 ALBUMIN (test code = 8840184328) 4.3 g/dL 3.5-5.0 ALK PHOS (test code = 5185683068) 183 U/L 34-122 H ALTv (test code = 1742-6) 20 U/L 5-35 AST(SGOT) (test code = 6436885937) 19 U/L 13-40 eGFR (test code = 2088677183) mL/min/1.73m2 HALEY (test code = HALEY) Association [...] imaging tests). Lab Interpretation (test code = 91723-5) Abnormal [facility]2021-10-29 04:12:10* Test Item Value Reference Range Interpretation Comme nts LIPASE (test code = 5708211285) 117 U/L 0-220 Lab Interpretation (test cod e = 72493-3) Normal [facility] WITH [id number] 04:02:51* Test Item Value Reference Range Interpretation Comme nts WBC (test code = 6690-2) See_Comment [Automated Context app] The system which generated this result transmitted reference range: 4.30 - 11.10 10*3/?L. The reference range was not used to interpret this result as normal/abnormal. RBC (test code = 789-8) See_Comment [Automated Context app] The system which generated this result transmitted [...] 33.3 g/dL 31.6-35.1 RDW-SD (test code = 34270-3) 38.3 fL 39.0-49.9 L RDW-CV (test code = 788-0) 12.4 % 12.0-15.5 PLT (test code = 777-3) See_Comment [Automated messa ge] The system which generated this result transmitted reference range: 166 - 358 10*3/?L. The reference range was not used to interpret this result as normal/abnormal. MPV (test code = 25321-0) 11.7 fL 9.5-12.9 NRBC/100 WBC (test code = 0960502267) See_Comment [Automated Affinity ssage] The system which generated this result transmitted reference range: 0.0 - 10.0 /100 WBCs. The reference range was not used to interpret this result as normal/abnormal. NRBC x10^3 (test code = 8278181315) <0.01 See_Comment [Automated messa ge] The system which generated this result transmitted reference range: 10*3/?L. The reference range was not used to interpret this result as normal/abnormal. GRAN MAT (NEUT) % (test code = 770-8) 67.3 % IMM GRAN % (test code = 9146537561) 0.60 % LYMPH % (test code = 736-9) 22.5 % MONO % (test code = 5905-5) 7.7 % EOS % (test code = 713-8) 1.5 % BASO % (test code = 706-2) 0.4 % GRAN MAT x10^3(ANC) (test code = 9483600440) 4.87 10*3/uL 1.88-7.09 IMM GRAN x10^3 (test code = 2765948124) 0.04 10*3/uL 0.00-0.06 LYMPH x10^3 (test code = 731-0) 1.63 10*3/uL 1.32-3.29 MONO x10^3 (test code = 742-7) 0.56 10*3/uL 0.33-0.92 EOS x10^3 (test code = 711-2) 0.11 10*3/uL 0.03-0.39 BASO x10^3 (test code = 704-7) 0.03 10*3/uL 0.01-0.07 Lab Interpretation (test code = 08050-6) Abnormal [facility] (COVID-19) by RT-PCR (HIGH RISK) 2020-05-15 00:00:00* Test Item Value Reference Range Interpretation Comme nts SARS-CoV-2 INTERPRETATION (t est code = 99328) NEGATIVE SOURCE (test code = 84972) NOT SPECIFIED POCT [id number] 05:55:00* Test Item Value Reference Range Interpretation Comme nts POCT PREG (test code = 1605) Negative On board controls acceptable with C Line (test code = 3574) Present POCT PREG LOT # (test code = 3575) HCG [id number] POCT PREG TEST DATE ( test code = 3576) 07/10/2021 Lab Interpretation (test cod e = 47915-7) Normal [facility] [id number] 05:51:00* Test Item Value Reference Range Interpretation Comme nts NT-proBNP (test code = 9656889844) 55 pg/mL See_Comment [Automated message] The system which generated this result transmitted reference range: <=125. The reference range was not used to interpret this result as normal/abnormal. HALEY (test code = HALEY) Biotin has been reported to cause a negative bias, interpret results relative to patient's use of biotin. Lab Interpretation (test code = 04177-5) Normal [facility] MET[facility]OLIC PANEL (23213)2020-04-06 05:42:00* Test Item Value Reference Range Interpretation Comme nts NA (test code = 1808005600) 134 mmol/L 135-145 L K (test code = 3604347476) 4.1 mmol/L 3.5-5 CL (test code = 9142054163) 101 mmol/L 98-108 CO2 TOTAL (test code = 7411592579) 24 mmol/L 23-31 AGAP (test code = 1317859792) 2-16 BUN (test code = 0744279134) 8 mg/dL 7-23 GLUCOSE (test code = 4286221878) 245 mg/dL 70-110 H CREATININE (test code = 9060308919) 0.66 mg/dL 0.5-1.04 TOTAL BILI (test code = 2654817529) 0.9 mg/dL 0.1-1.1 CALCIUM (test code = 3159027856) 9.4 mg/dL 8.6-10.6 T PROTEIN (test code = 4365035964) 8.3 g/dL 6.3-8.2 H ALBUMIN (test code = 1044048782) 4.5 g/dL 3.5-5 ALK PHOS (test code = 4745489697) 115 U/L 34-122 ALTv (test code = 1742-6) 31 U/L 5-35 AST(SGOT) (test code = 7736857930) 30 U/L 13-40 eGFR Calculation (Non-) (test code = 7107067791) mL/min/1.73m2 eGFR Calculation () (test code = 9807580844) mL/min/1.73m2 HALEY (test code = HALEY) Association [...] imaging tests). Lab Interpretation (test code = 39238-4) Abnormal [facility]2020-06-27 05:42:00* Test Item Value Reference Range Interpretation Comme nts LIPASE (test code = 0908158218) 60 U/L 0-220 Lab Interpretation (test cod e = 63107-0) Normal [facility]2020-06-27 05:35:00* Test Item Value Reference Range Interpretation Comme nts APPEARANCE (test code = 9689543908) Cloudy Clear A COLOR (test code = 7131479446) Benita Yellow A PH (test code = 8833487761) 4.8-8.0 SP GRAVITY (test code = 4552538120) 1.003-1.030 GLU U QUAL (test code = 4996764999) Normal Normal BLOOD (test code = 7944227684) Negative Negative KETONES (test code = 9316759290) Negative Negative PROTEIN (test code = 2887-8) Negative Negative UROBILIN (test code = 7088574634) 4.0 mg/dL Normal A BILIRUBIN (test code = 0463329722) Negative Negative NITRITE (test code = 2877902073) Negative Negative LEUK PATRICIA (test code = 8605522844) Negative Negative RBC/HPF (test code = 5816876822) See_Comment [Automated Context app] The system which generated this result transmitted reference range: 0 - 3 HPF. The reference range was not used to interpret this result as normal/abnormal. WBC/HPF (test code = 5181595622) See_Comment [Automated Context app] The system which generated this result transmitted reference range: 0 - 5 HPF. The reference range was not used to interpret this result as normal/abnormal. BACTERIA (test code = 2043772618) Many Negative A MUCOUS (test code = 5973744539) Slight Negative LPF A SQ EPITH (test code = 0313769104) HPF Lab Interpretation (test code = 23571-8) Abnormal [facility] WITH [id number] 05:26:00* Test Item Value Reference Range Interpretation [...] 33.9 g/dL 31.6-35.1 RDW-SD (test code = 49509-5) 39.8 fL 39-49.9 RDW-CV (test code = 788-0) 12.8 % 12-15.5 PLT (test code = 777-3) See_Comment [Automated messa ge] The system which generated this result transmitted reference range: 166 - 358 10*3/?L. The reference range was not used to interpret this result as normal/abnormal. MPV (test code = 58218-7) 11.8 fL 9.5-12.9 NRBC/100 WBC (test code = 6456304760) See_Comment [Automated Affinity ssage] The system which generated this result transmitted reference range: 0.0 - 10.0 /100 WBCs. The reference range was not used to interpret this result as normal/abnormal. NRBC x10^3 (test code = 1273868515) <0.01 See_Comment [Automated messa ge] The system which generated this result transmitted reference range: 10*3/?L. The reference range was not used to interpret this result as normal/abnormal. GRAN MAT (NEUT) % (test code = 770-8) 81.5 % IMM GRAN % (test code = 7051244474) 0.80 % LYMPH % (test code = 736-9) 7.7 % MONO % (test code = 5905-5) 7.2 % EOS % (test code = 713-8) 2.3 % BASO % (test code = 706-2) 0.5 % GRAN MAT x10^3(ANC) (test code = 9007137403) 4.95 10*3/uL 1.88-7.09 IMM GRAN x10^3 (test code = 1651155952) 0.05 10*3/uL 0-0.06 LYMPH x10^3 (test code = 731-0) 0.47 10*3/uL 1.32-3.29 L MONO x10^3 (test code = 742-7) 0.44 10*3/uL 0.33-0.92 EOS x10^3 (test code = 711-2) 0.14 10*3/uL 0.03-0.39 BASO x10^3 (test code = 704-7) 0.03 10*3/uL 0.01-0.07 Lab Interpretation (test code = 62812-3) [facility]normal [facility] [id number] 05:15:00* Test Item Value Reference Range Interpretation Comme nts LACTIC ACID (test code = 5304166468) 1.78 mmol/L 0.3-2.6 [facility]"
[2024-04-07] MEDS ORDERED: ONDANSETRON 4 MG/2 ML VIAL ONE (06:17)
[2024-04-07] MEDS ORDERED: MORPHINE 4 MG/ML SYR ONE (06:17)
[2024-04-07] MEDS ORDERED: NA CHLORIDE 0.9% 1,000 ML ONE ×2 (06:18→07:13)
[2024-04-07] MEDS ORDERED: FAMOTIDINE 20 MG/2 ML VIAL IV ONE (06:18)
[2024-04-07 06:45] LABS: Absolute Lymphocytes (CBC) 1.7 K/uL (0.7-4.9); Absolute Monocytes 0.2 K/uL (0.1-1.3); Absolute Neutrophil 3.7 K/uL (1.8-8.0); Basophils % 0.5 % (0-1.3); Eosinophils % 0.6 % (0-4.4); Hematocrit 38.8 % (36.0-45.0); Hemoglobin 13.3 g/dL (12.0-15.0); Lymphocytes % 29.9 % (15.3-44.8); MCH 28.5 pg (27.0-35.0); MCHC 34.2 g/dL (32.0-36.0); MCV 83.3 fL (80-100); Monocytes % 4.2 % (3.3-12.3); Neutrophils % 64.8 % (41.7-73.7); Nucleated Red Blood Cells % 0.2 % (0-0); Platelets 156 thou/uL (152-406); RBC Red Blood Cell Count 4.66 M/uL (3.86-4.86); Red Cell Distribution Width 13.4 % (12.1-15.2)
[2024-04-07 09:17] LABS: ALT/SGPT 20 U/L (13-56); AST/SGOT < 10 U/L (15-37); Albumin 3.3 g/dL (3.4-5.0); Albumin/Globulin Ratio 0.9 (1.1-1.8); Alkaline Phosphatase 116 U/L (45-117); Anion Gap 6.2 mEq/L (5.0-15.0); BUN Blood Urea Nitrogen 9 mg/dL (7-18); Bicarbonate 31 mEq/L (21-32); Bilirubin Total 1.1 mg/dL (0.2-1.0); Globulin 3.6 g/dL (2.3-3.5); Glomerular Filtration Rate 106 ml/min (=/>90); Glucose Level 151 mg/dL (74-106); Lipase 30 U/L (13-75); Potassium 4.2 mEq/L (3.5-5.1); Protein, Total 6.9 g/dL (6.4-8.2); Sodium Level 140 mEq/L (136-145)
[2024-04-07 09:31] LABS: Specific Gravity 1.011 (1.005-1.030)
[2024-04-07 09:41] LABS: Calcium Oxalate Crystals- Ur Few /HPF (None Seen); Specific Gravity 1.011 (1.005-1.030); Sqamous Epithelial <5 /HPF (None Seen); Urine Bacteria 20-50 /HPF (<20); Urine Bilirubin NEGATIVE (Negative); Urine Blood Negative (Negative); Urine Clarity Extremely Turbid (Clear); Urine Color Light-Yellow (Yellow); Urine Culture Reflex Order REFLEXED; Urine Glucose NEGATIVE (Negative); Urine Ketones NEGATIVE (Negative); Urine Microscopic Reflex YN ORDER UMIC; Urine Mucus Slight /HPF (None Seen); Urine Nitrite 2+ (Negative); Urine Protein NEGATIVE (Negative); Urine Urobilinogen Normal (Normal); Urine WBC >50 /HPF (<5)
--- NOTE | 2024-04-07 10:54 | RAD REPORT ---
EXAM DESCRIPTION: CT - Abdomen Pelvis W Contrast - 04/07/2024 9:42 am CLINICAL HISTORY: ABD PAIN COMPARISON: Abdomen Pelvis W Contrast dated 04/09/2021; Abdomen Pelvis W Contrast dated 03/22/2021 ; Abdomen Pelvis W Contrast dated 04/10/2020 TECHNIQUE: Thin cut axial CT imaging of the abdomen and pelvis was performed following intravenous a dministration of iodinated contrast. Multiplanar reformats were generated and reviewed. All CT scans are performed using dose optimization technique as appropriate and may include automated exposure control or mA/KV adjustment according to patient size. FINDINGS: No suspicious findings in the lung bases. The liver, spleen, adrenal glands, and pancreas show no suspicious findings. Gallbladder was surgical ly removed Symmetric renal function is seen with no hydronephrosis or suspicious renal mass. No dilated bowel loops or bowel wall thickening. No free air, free fluid or inflammatory stranding. N o hernia, mass or bulky lymphadenopathy. Uterus is retroverted. The urinary bladder is without signif icant finding. No suspicious bony findings. IMPRESSION: No acute intra-abdominal process. Incidental findings as above.
--- NOTE | 2024-04-07 11:03 | EDPHYS ---
Physician Documentation [facility] Name: Chelsie Zaragoza Age: 49 yrs Sex: Female : 1975 Arrival Date: 04/07/2024 Time: 05:44 Bed 20 Private MD: ED Physician Nishant Cox HPI: 04/07 06:06 This 49 yrs old Female presents to ER via Unassigned with complaints of abd caterina pain , vomiting. 06:07 The patient presents with abdominal pain in the upper abdomen, in the lower abdomen. caterina Onset: The symptoms/episode began/occurred just prior to arrival. The patient presents to the emergency department with nausea, vomiting, abdominal pain, of the right upper quadrant, left upper quadrant, right lower quadrant and left lower quadrant. Onset: The symptoms/episode began/occurred just prior to arrival. Possible causes: unknown. The symptoms are aggravated by nothing. movement, The symptoms are alleviated by nothing. Associated signs and symptoms: Pertinent positives: abdominal pain, nausea, vomiting. The symptoms do not radiate. Associated signs and symptoms: none. Modifying factors: The symptoms are alleviated by nothing, the symptoms are aggravated by food. Severity of pain: At its worst the pain was moderate in the emergency department the pain is unchanged. Severity of symptoms: At their worst the symptoms were mild in the emergency department the symptoms are unchanged. The patient has experienced similar episodes in the past, a few times. 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 - Infectious Disease History:: Denies. - Family history:: not pertinent. - Social history:: Smoking status: Patient reports the use of cigarette tobacco products, Patient denies any tobacco usage or history of. ROS: 06:08 Constitutional: Negative for fever, chills, and weight loss, Eyes: Negative for injury, caterina pain, redness, and discharge, ENT: Negative for injury, pain, and discharge, Neck: Negative for injury, pain, and swelling, Cardiovascular: Negative for chest pain, palpitations, and edema, Respiratory: Negative for shortness of breath, cough, wheezing, and pleuritic chest pain, Back: Negative for injury and pain, : Negative for injury, bleeding, discharge, and swelling, MS/Extremity: Negative for injury and deformity, Skin: Negative for injury, rash, and discoloration, Neuro: Negative for headache, weakness, numbness, tingling, and seizure, Psych: Negative for depression, anxiety, suicide ideation, homicidal ideation, and hallucinations, Allergy/Immunology: Negative for hives, rash, and allergies, Endocrine: Negative for neck swelling, polydipsia, polyuria, polyphagia, and marked weight changes, Hematologic/Lymphatic: Negative for swollen nodes, abnormal bleeding, and unusual bruising, 06:08 Abdomen/GI: Positive for abdominal pain, nausea and vomiting, abdominal cramps, of the right upper quadrant, left upper quadrant, right lower quadrant and left lower quadrant, Exam: 06:08 Constitutional: This is a well developed, well nourished patient who is awake, alert, caterina and in no acute distress. Head/Face: Normocephalic, atraumatic. Eyes: Pupils equal round and reactive to light, extra-ocular motions intact. Lids and lashes normal. Conjunctiva and sclera are non-icteric and not injected. Cornea within normal limits. Periorbital areas with no swelling, redness, or edema. ENT: Nares patent. No nasal discharge, no septal abnormalities noted. Tympanic membranes are normal and external auditory canals are clear. Oropharynx with no redness, swelling, or masses, exudates, or evidence of obstruction, uvula midline. Mucous membranes moist. Neck: Trachea midline, no thyromegaly or masses palpated, and no cervical lymphadenopathy. Supple, full range of motion without nuchal rigidity, or vertebral point tenderness. No Meningismus. Chest/axilla: Normal chest wall appearance and motion. Nontender with no deformity. No lesions are appreciated. Cardiovascular: Regular rate and rhythm with a normal S1 and S2. No gallops, murmurs, or rubs. Normal PMI, no JVD. No pulse deficits. Respiratory: Lungs have equal breath sounds bilaterally, clear to auscultation and percussion. No rales, rhonchi or wheezes noted. No increased work of breathing, no retractions or nasal flaring. Back: No spinal tenderness. No costovertebral tenderness. Full range of motion. Female : Normal external genitalia. Skin: Warm, dry with normal turgor. Normal color with no rashes, no lesions, and no evidence of cellulitis. MS/ Extremity: Pulses equal, no cyanosis. Neurovascular intact. Full, normal range of motion. Neuro: Awake and alert, GCS 15, oriented to person, place, time, and situation. Cranial nerves II-XII grossly intact. Motor strength 5/5 in all extremities. Sensory grossly intact. Cerebellar exam normal. Normal gait. Psych: Awake, alert, with orientation to person, place and time. Behavior, mood, and affect are within normal limits. 06:08 ECG was reviewed by the Attending Physician. 06:08 Abdomen/GI: Inspection: abdomen appears normal, Bowel sounds: normal, Palpation: moderate abdominal tenderness, in the right upper quadrant, left upper quadrant, right lower quadrant and left lower quadrant, Liver: no appreciated palpable abnormalities, Hernia: not appreciated, Vital Signs: 06:04 BP 112 / 78; Pulse 84; Resp 18; Temp 98; Pulse Ox 100% on R/A; Weight 58.97 kg; Height rg5 5 ft. 4 in. ; Pain 7/10; 09:15 BP 131 / 82; Pulse 88; Resp 12; Pulse Ox 100% ; Pain 7/10; nj1 10:28 BP 112 / 68; Pulse 73; Resp 16; Pulse Ox 98% ; Pain 6/10; nj1 11:31 BP 105 / 72; Pulse 77; Resp 16; Pulse Ox 99% ; nj1 06:04 Body Mass Index 22.31 (58.97 kg, 162.56 cm) rg5 06:04 Pain Scale: Adult rg5 09:15 Pain Scale: Adult nj1 10:28 Pain Scale: Adult nj1 MDM: 06:00 Patient medically screened. caterina 06:10 Differential diagnosis: Nonspecific abd pain, pancreatitis, appendicitis, caterina diverticulitis, viral gastroenteritis, gastroenteritis, bowel obstruction, Cholelithiasis, diverticulitis, Dysmenorrhea, gastritis, Hepatitis, Mesenteric ischemia or infarction, myocardia ischemia or infarction, non-specific abd pain, Peptic Ulcer Disease, Peritonitis, Pyelonephritis, Ureterolithiasis, urinary tract infection. Data reviewed: vital signs, nurses notes, EMS record, lab test result(s), EKG, radiologic studies, CT scan. Consideration of Admission/Observation Escalation of care including admission/observation considered. I considered the following discharge prescriptions or medication management in the emergency department Medications were administered in the Emergency Department. See MAR. Independent interpretation of the following test(s) in the Emergency Department EKG: See my EKG interpretation above. Test considered but Not performed: Ultrasound no abd usg. Historians other than the Patient: Daughter/Son: son well informed. Care significantly affected by the following chronic conditions: Diabetes. Counseling: I had a detailed discussion with the patient and/or guardian regarding the historical points, exam findings, and any diagnostic results supporting the discharge/admit diagnosis, lab results, radiology results, the need for outpatient follow up, for definitive care, a family practitioner. 11:01 Response to treatment: the patient's symptoms have markedly improved after treatment, rn and as a result, I will discharge patient. Special discussion: I discussed with the patient/guardian in detail that at this point there is no indication for admission to the hospital. It is understood, however, that if the symptoms persist or worsen the patient needs to return immediately for re-evaluation. ED course: Patient feels much better, no acute findings on CT. Urine shows UTI. Will discharge home with antibiotics and return precautions.. 04/07 06:01 Order name: CBC with Diff; Complete Time: 07:01 [facility] 04/07 06:01 Order name: CMP; Complete Time: 10:57 [facility] 04/07 06:01 Order name: Lipase; Complete Time: 10:57 [facility] 04/07 06:01 Order name: Test, Urine; Complete Time: 10:57 [facility] 04/07 06:01 Order name: Urinalysis w/ reflexes; Complete Time: 10:57 [facility] 04/07 06:06 Order name: Troponin HS; Complete Time: 07:33 [facility] 04/07 09:45 Order name: Urine Culture [facility] 04/07 06:06 Order name: CT Abd/Pelvis - IV Contrast Only; Complete Time: 10:57 [facility] 04/07 07:05 Order name: EKG Electrocardiogram; Complete Time: 07:11 [facility] 04/07 06:01 Order name: IV Saline Lock; Complete Time: 06:14 [facility] 04/07 06:01 Order name: Labs collected and sent; Complete Time: 06:26 [facility] 04/07 07:10 Order name: Labs - recollect needed: recollect chemistries; Complete Time: 08:45 eb EC:08 Rate is 20 beats/min. Rhythm is regular. QRS Chemult is Normal. GA interval is normal. QRS caterina interval is normal. QT interval is normal. No Q waves. T waves are Normal. No ST changes noted. Clinical impression: NSR w/ Non-specific ST/T Changes and No evidence of ischemia. Interpreted by me. Administered Medications: 06:26 Drug: morphine IVP or IV 4 mg IVP once over 4 mins Route: IVP; Infused Over: 4 mins; rg5 Site: right hand; 06:26 Drug: NS 0.9% IV 1000 ml IV at 1 bolus Per protocol; 1000 mL bolus Route: IV; Rate: 1 rg5 bolus; Site: right hand; 09:15 Follow up: Response: No adverse reaction; IV Status: Completed infusion; IV Intake: nj1 1000ml 06:26 Drug: Famotidine IVP 20 mg IVP once; dilute with 10 mL 0.9% NaCl; give over 2 minutes rg5 Route: IVP; Site: right hand; 06:28 Drug: Ondansetron IVP 4 mg IVP once; over 2 minutes Route: IVP; Site: right hand; rg5 09:09 Not Given (Physician Discretion): ns 0.9% 1000 ml IV at 1 bolus Per protocol; 1000 mL nj1 bolus 11:30 Drug: Rocephin IV 1 grams IV at calculated rate once; Given slow IV push per pharmacy nj1 instructions Route: IV; Rate: calculated rate; Site: right hand; 11:40 Follow up: Response: No adverse reaction; IV Status: Completed infusion; IV Intake: [id number] Disposition Summary: 04/07/24 11:02 Discharge Ordered Notes: Location: Home rn Problem: new rn Symptoms: have improved rn Condition: Stable rn Diagnosis - Abdominal pain, Generalized rn - Vomiting rn - Type 2 diabetes mellitus with hyperglycemia rn - UTI/ Urinary tract infection, site not specified rn Followup: caterina - With: Private Physician - When: 2 - 3 days - Reason: Recheck today's complaints, Continuance of care, Re-evaluation by your physician Discharge Instructions: - Discharge Summary Sheet caterina - Abdominal Pain, Adult caterina - Hyperglycemia caterina - Abdominal Pain, Adult, [id number] caterina - Diabetes Mellitus and Nutrition, Adult caterina - Vomiting, Adult caterina Forms: - Medication Reconciliation Form rn - Antibiotic delivery rn - Prescription Opioid Use rn - Patient Portal Instructions rn - Leadership Thank You Letter rn Prescriptions: - ondansetron 4 mg Oral Tablet,disintegrating - take 1 tablet ORAL route every 6-8 hours; 20 tablet; Refills: 0, Product caterina Selection Permitted - cefpodoxime 100 mg Oral Tablet - take 2 tablets ORAL route every 12 hours for 10 days take with food; 40 tablet; rn Refills: 0, Product Selection Permitted Signatures: Dispatcher [employer] EDMS Adrian Acevedo MD MD cha Nieto, Roman, MD MD rn Botello, Elizabeth eb Jaco, Norma RN RN nj1 Shukri Stewart RN RN rg5 Corrections: (The following items were deleted from the chart) 06:01 06:01 CBC+H.LAB.BRZ ordered. EDMS EDMS 06:01 06:01 COMPREHENSIVE METABOLIC PANEL+C.LAB.BRZ ordered. EDMS EDMS 06:01 06:01 LIPASE+C.LAB.BRZ ordered. EDMS EDMS 06:01 06:01 Test, Urine+UC.LAB.BRZ ordered. EDMS EDMS 06:01 06:01 Urinalysis+U.LAB.BRZ ordered. EDMS EDMS 06:06 06:06 Abdomen Pelvis W Con+CT.RAD.BRZ ordered. EDMS EDMS
--- NOTE | 2024-04-07 11:03 | ER ---
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 rg5 Coronavirus screen: Vaccine status: Patient reports receiving the 2nd dose of the covid vaccine. Client denies travel out of the [place] in the last 14 days. Ebola Screen: Patient negative for fever greater than or equal to 101.5 degrees Fahrenheit, and additional compatible Ebola Virus Disease symptoms. Initial Sepsis Screen: Does the patient meet any 2 criteria? No. Patient's initial sepsis screen is negative. Does the patient have a suspected source of infection? No. Patient's initial sepsis screen is negative. Risk Assessment: Do you want to hurt yourself or someone else? Patient reports no desire to harm self or others. Onset of symptoms was April 07, 2024 at 02:00. 06:04 Method Of Arrival: EMS: [facility] rg5 06:04 Acuity: YANNA 3 rg5 Triage Assessment: 06:07 General: Appears in no apparent distress. comfortable, Behavior is calm, cooperative. rg5 Pain: Complains of pain in abdomen Pain currently is 7 out of 10 on a pain scale. Quality of pain is described as aching, crampy, Pain began 2 hours ago. Is intermittent. 06:07 Respiratory: Airway is patent. GI: Abdomen is round non-distended, Abd is soft and non rg5 tender X 4 quads. Patient currently denies pain. : No deficits noted. Derm: Skin is intact, Skin temperature is warm. Musculoskeletal: Range of motion: intact in all extremities. 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 - Infectious Disease History:: Denies. - Family history:: not pertinent. - Social history:: Smoking status: Patient reports the use of cigarette tobacco products, Patient denies any tobacco usage or history of. Screenin:27 [facility] ED Fall Risk Assessment (Adult) History of falling in the last 3 months, nj1 including since admission No falls in past 3 months (0 pts) Confusion or Disorientation No (0 pts) Intoxicated or Sedated No (0 pts) Impaired Gait No (0 pts) Mobility Assist Device Used No (0 pt) Altered Elimination No (0 pt) Score/Fall Risk Level 0 - 2 = Low Risk Oriented to surroundings, Maintained a safe environment, Hourly rounding (assess needs \T\ fall precautionary measures) done. Abuse screen: Denies threats or abuse. Denies injuries from another. Nutritional screening: No deficits noted. Tuberculosis screening: No symptoms or risk factors identified. Assessment: 09:15 General: Appears in no apparent distress. uncomfortable, Behavior is calm, cooperative, nj1 appropriate for age. Pain: Complains of pain in chest Pain currently is 7 out of 10 on a pain scale. Neuro: Level of Consciousness is awake, alert, obeys commands, Oriented to person, place, time, situation. Cardiovascular: Patient's skin is warm and dry. Chest pain. Respiratory: Airway is patent Respiratory effort is even, unlabored. GI: Reports nausea. 10:27 Reassessment: Patient appears in no apparent distress at this time. Patient and/or nj1 family updated on plan of care and expected duration. Pain level reassessed. Patient is alert, oriented x 3, equal unlabored respirations, skin warm/dry/pink. GI: Patient currently denies nausea. 11:30 Reassessment: Patient appears in no apparent distress at this time. Patient and/or nj1 family updated on plan of care and expected duration. Pain level reassessed. Patient is alert, oriented x 3, equal unlabored respirations, skin warm/dry/pink. IV abx infusing. Vital Signs: 06:04 BP 112 / 78; Pulse 84; Resp 18; Temp 98; Pulse Ox 100% on R/A; Weight 58.97 kg; Height rg5 5 ft. 4 in. ; Pain 7/10; 09:15 BP 131 / 82; Pulse 88; Resp 12; Pulse Ox 100% ; Pain 7/10; nj1 10:28 BP 112 / 68; Pulse 73; Resp 16; Pulse Ox 98% ; Pain 6/10; nj1 11:31 BP 105 / 72; Pulse 77; Resp 16; Pulse Ox 99% ; nj1 06:04 Body Mass Index 22.31 (58.97 kg, 162.56 cm) rg5 06:04 Pain Scale: Adult rg5 09:15 Pain Scale: Adult nj1 10:28 Pain Scale: Adult nj1 ED Course: 05:52 Patient arrived in ED. vc1 06:00 Adrian Acevedo MD is Attending Physician. caterina 06:02 Shukri Stewart, RN is Primary Nurse. rg5 06:07 Triage completed. rg5 06:07 Arm band placed on right wrist. Patient placed on traffic monitor specialist, on pulse oximetry. rg5 EKG completed in triage. Results shown to MD. 06:26 Troponin HS Sent. rc3 06:26 CBC with Diff Sent. rc3 06:26 CMP Sent. rc3 06:26 Lipase Sent. rc3 07:07 Attending Physician role handed off by Adrian Acevedo MD rn 07:07 Nishant Cox MD is Attending Physician. rn 07:10 Primary Nurse role handed off by Shukri Stewart, JOSS rg5 09:05 Yamilka Reed, RN is Primary Nurse. nj1 09:15 Patient has correct armband on for positive identification. Bed in low position. Call [facility] light in reach. Side rails up X 1. Adult w/ patient. 09:15 Provided Education on: call light, fall precautions. nj1 09:44 CT Abd/Pelvis - IV Contrast Only In Process Unspecified. EDMS 11:39 No provider procedures requiring assistance completed. IV discontinued, intact, nj1 bleeding controlled, Pressure dressing applied. Administered Medications: 06:26 Drug: morphine IVP or IV 4 mg IVP once over 4 mins Route: IVP; Infused Over: 4 mins; rg5 Site: right hand; 06:26 Drug: NS 0.9% IV 1000 ml IV at 1 bolus Per protocol; 1000 mL bolus Route: IV; Rate: 1 rg5 bolus; Site: right hand; 09:15 Follow up: Response: No adverse reaction; IV Status: Completed infusion; IV Intake: nj1 1000ml 06:26 Drug: Famotidine IVP 20 mg IVP once; dilute with 10 mL 0.9% NaCl; give over 2 minutes rg5 Route: IVP; Site: right hand; 06:28 Drug: Ondansetron IVP 4 mg IVP once; over 2 minutes Route: IVP; Site: right hand; rg5 09:09 Not Given (Physician Discretion): ns 0.9% 1000 ml IV at 1 bolus Per protocol; 1000 mL nj1 bolus 11:30 Drug: Rocephin IV 1 grams IV at calculated rate once; Given slow IV push per pharmacy nj1 instructions Route: IV; Rate: calculated rate; Site: right hand; 11:40 Follow up: Response: No adverse reaction; IV Status: Completed infusion; IV Intake: [id number] Medication: 11:40 VIS not applicable for this client. nj1 Intake: 09:15 IV: 1000ml; Total: 1000ml. nj1 11:40 IV: 50ml; Total: 1050ml. [facility] Outcome: 11:02 Discharge ordered by . rn 11:40 Discharged to home ambulatory, [facility] 11:40 Condition: stable 11:40 Discharge instructions given to patient, Instructed on discharge instructions, follow up and referral plans. Demonstrated understanding of instructions, follow-up care, medications, Prescriptions given X 2, 11:42 Patient left the ED. nj Addendum: 04/10/2024 11:51 Addendum: Culture Results: Positive urine culture. Bacteria is resistant to, has a a5 intermediate sensitivity, or is not tested against prescribed antibiotics. Report given to MILANA for further evaluation and then to long wall mining machine tender for follow up with patient. Prescription called-in to pharmacy of choice. Called in Macrobid 100mg BID x 7 days per Ronel Vieira NP to [facility] pharmacy in [place], [place]. Signatures: Dispatcher [employer] EDMS Adrian Acevedo MD MD cha Nieto, Roman, MD MD rn Calderon, Audri RN RN aa5 Rut Valentino RN RN vc1 Yamilka Reed RN RN nj1 Kyra Grubbs rc3 Shukri Stewart RN RN rg5 Corrections: (The following items were deleted from the chart) 04/07 09:28 09:15 Pulse 88bpm; Resp 12bpm; Pulse Ox 100%; Pain 7/10, Adult; nj1 nj1
[2024-04-07] MEDS ORDERED: CEFTRIAXONE 1000 MG/VIAL ONE (11:23)
[2024-04-07] MEDS ORDERED: NA CHLORIDE 0.9% 50 ML ONE (11:24)
[2024-04-07 11:59] VITALS: BP 105/72; TEMP 98; O2SAT 99
--- NOTE | 2024-04-08 14:08 | EKG ---
Test Date: 2024-04-07 Test Time: 05:58:57 Eligibility Technician: DONNIE MEASUREMENT RESULTS: Intervals: Rate: 79 WV: 130 QRSD: 76 QT: 348 QTc: 399 [place]: P: 65 WV: 130 QRS: 43 T: 61 INTERPRETIVE STATEMENTS: Normal sinus rhythm Normal ECG Compared to ECG 10/22/2023 13:53:09 Myocardial infarct finding no longer present Electronically Signed On 04-08-24 14:05:52 CDT by Anup Ford
== END 2024-04-07 11:42 | disposition home or self-care (01) ==
LOC: ER 05:44
DX: N39.0 Urinary tract infection, site not specified (principal); E11.65 Type 2 diabetes mellitus with hyperglycemia; R11.10 Vomiting, unspecified; F17.210 Nicotine dependence, cigarettes, uncomplicated
CPT/HCPCS: 36415; 74177; 80053; 81001; 81025; 83690; 84484; 85025; 87077; 87086; 87088; 87186; 93005; 96361; 96374; 96375; 99284; J0696; J2405; J7030; Q9967

== ENCOUNTER 2025-05-26 20:15 | Emergency (ER) | payer SELFPAY ==
--- OUTSIDE RECORDS SUMMARY | 2025-05-26 20:19 | XMS REPORT | Continuity of Care Document ---
Author Name Unknown Address [address] [place] [address] Organization [facility] [place] Address [address] [place] [address] Care Team Providers Care Benefits Specialist Name Role Phone Vinh DUMONT, Sheryl Primary Care Physician OZIEL REBOLLEDO Attending Clinician Unavailable MEHOP_ELIGIBILITY Attending Clinician Unavailabl e NANDO OCHOA Attending Clinician Unavailable MARCO CHANG Attending Clinician Unavailable Marco Chang MD Attending Clinician [phone] ORA NOEL Attending Clinician Unavailable Mariama Spivey Attending Clinician [phone] MEHOP_ELIGIBILITY Admitting Clinician Unavailсергей e Payers Payer Name Policy Type Policy Number Effective Date Expirati on Date Source [facility] [place] [facility] [id number] 2018 00:00:00 MEDICAID SSI PENDING PENDING 2022 00:00:00 Problems Condition Name Condition Details Condition Category Status Onset Date Resolution Date Last Treatment Date Treating Clinician Comments Source Hyperglyce shaheen Hyperglyce shaheen Disease Active 04-21 00:00: 00 [facility] Obesity (BMI 30.0-34.9) Obesity (BMI 30.0-34.9) Disease Active 2017-10 00:00: 00 [facility] Irregular menstrual cycle Irregular menstrual cycle Disease Active 2017-10 00:00: 00 [facility] History of diet-contr olled diabetes History of diet-contr olled diabetes Disease Active 2017-10 00:00: 00 [facility] Allergies, Adverse Reactions, Alerts Allergy Name Allergy Type Status Severity Reaction(s) Onset Date Inactive Date Treating Clinician Comments Source NO KNOWN ALLERGIE S Drug Class Active [facility] Social History Social Habit Start Date Stop Date Quantity Comments Source Exposure to SARS-CoV-2 (event) 2022-04-11 00:00:00 2022-04-21 21:50:00 Not sure [facility] Alcohol intake 2021-08-07 00:00:00 2021-08-07 00:00:00 Current non-drinker of alcohol (finding) [facility] Tobacco use and exposure 2017-10-18 00:00:00 2017-10-18 00:00:00 Smokeless tobacco non-user [facility] Sex Assigned At 1975 00:00:00 1975 00:00:00 [facility] Smoking Status Start Date Stop Date Source Never smoked tobacco [facility] Medications Ordered Medication Name Filled Medication Name Start Date Stop Date Current Medication? Ordering Clinician Indication Dosage Frequency Signature (SIG) Comments Components Source TAKE 1 TABLET AT BEDTIME. 2022-10 00:00: 00 02-08 00:00 :00 No 10 Ranjan Arredondo TAKE 1 TABLET TWICE DAILY WITH FOOD. 2022-10 00:00: 00 02-08 00:00 :00 No 500 Ranjan Arredondo TAKE 1 TABLET EVERY 12 HOURS UNTIL GONE. 10-21 00:00: 00 02-08 00:00 :00 No [id number] Ranjan Arredondo TAKE 1 TABLET EVERY 6 TO 8 HOURS NEEDED FOR COUGH 10-21 00:00: 00 02-08 00:00 :00 No 200 Ranjan Arredondo TAKE 10 ML AT BEDTIME NEEDED FOR COUGH 2023-0 1-11 00:00: 00 02-08 00:00 :00 No [id number] Ranjan Arredondo insulin regular human (HUMULIN R) injection 6 Units 04-22 05:00: 00 04-22 03:57 :00 No 6U 6 Units, IV Push, ONCE, 1 dose, On Wed04/22/22 at 0000, Routine [facility] NaCl 0.9% (NS) bolus infusion 1,000 mL 04-22 04:00: 00 04-22 04:52 :00 No 1000mL at 999 mL/hr, 1,000 mL, IV Infusion, ONCE, 1 dose, On Wed04/21/22 at 2300, MELLO [facility] glipizide ER 5 mg tablet, extended release 24 hr 04-22 00:00: 00 No 1mg Dose Unknown 0 04-22 00:00: 00 Yes Ranjan Lafleur Arnulfo Dose Unknown 2021-0 30 00:00: 00 No Dose Unknown 2-0 30 00:00: 00 No Dose Unknown 2022-0 30 00:00: 00 No Dose Unknown 2022-0 30 00:00: 00 No Dose Unknown 2-0 30 00:00: 00 No Dose Unknown 2-0 30 00:00: 00 No Dose Unknown 2022-0 430 00:00: 00 Yes Ranjan Lafleur Arnulfo Dose Unknown 2021-0 430 00:00: 00 Yes Ranjan F Arnulfo Dose Unknown 2022-0 430 00:00: 00 Yes Ranjan F Arnulfo Dose Unknown 2022-0 430 00:00: 00 Yes Ranjan F Arnulfo Dose Unknown 2-0 430 00:00: 00 Yes Ranjan F Arnulfo Dose Unknown 2-0 430 00:00: 00 Yes Ranjan F Arnulfo Dose Unknown 2022-0 02-05 00:00: 00 No Dose Unknown 2022-0 428 00:00: 00 No Dose Unknown 2022-0 428 00:00: 00 No Dose Unknown 2022-0 428 00:00: 00 No Dose Unknown 2022-0 428 00:00: 00 No Dose Unknown 2022-0 4-28 00:00: 00 No Dose Unknown 2022-0 4-28 00:00: 00 Yes Ranjan F Arnulfo Dose Unknown 2022-0 4-28 00:00: 00 Yes Ranjan F Arnulfo Dose Unknown 2022-0 4-28 00:00: 00 Yes Ranjan F Arnulfo Dose Unknown 2022-0 4-28 00:00: 00 Yes Ranjan F Arnulfo Dose Unknown 2022-0 4-28 00:00: 00 Yes Ranjan F Arnulfo Dose Unknown 2022-0 4-28 00:00: 00 Yes Ranjan F Arnulfo Dose Unknown 2022-0 4-06 00:00: 00 No Dose Unknown 2022-0 4-06 00:00: 00 No Dose Unknown 2022-0 4-06 00:00: 00 No Dose Unknown 2022-0 4-06 00:00: 00 No Dose Unknown 2022-0 4-06 00:00: 00 No Dose Unknown 2022-0 4-06 00:00: 00 No Dose Unknown 2022-0 4-06 00:00: 00 Yes Ranjan F Arnulfo Dose Unknown 2022-0 4-06 00:00: 00 Yes Ranjan Lafleur Arnulfo Dose Unknown 2022-0 4-06 00:00: 00 Yes Ranjan F Arnulfo Dose Unknown 2022-0 4-06 00:00: 00 Yes Ranjan F Arnulfo Dose Unknown 2022-0 4-06 00:00: 00 Yes Ranjan Lafleur Arnulfo Dose Unknown 2022-0 4-06 00:00: 00 Yes Ranjan F Arnulfo Dose Unknown 2022-0 4-05 00:00: 00 No Dose Unknown 2022-0 4-05 00:00: 00 No Dose Unknown 2022-0 4-05 00:00: 00 No Dose Unknown 2022-0 4-05 00:00: 00 No Dose Unknown 2022-0 4-05 00:00: 00 No Dose Unknown 2022-0 4-05 00:00: 00 No Dose Unknown 2022-0 4-05 00:00: 00 Yes Ranjan F Arnulfo Dose Unknown 2022-0 4-05 00:00: 00 Yes Ranjan F Arnulfo Dose Unknown 2022-0 4-05 00:00: 00 Yes Ranjan F Arnulfo Dose Unknown 2022-0 4-05 00:00: 00 Yes Ranjan F Arnulfo Dose Unknown 2022-0 4-05 00:00: 00 Yes Ranjan Arredondo Dose Unknown 2022-0 4-05 00:00: 00 Yes Ranjan Arredondo Dose Unknown 2022-0 3-29 00:00: 00 No Dose Unknown 2022-0 3-29 00:00: 00 No Dose Unknown 2022-0 3-29 00:00: 00 No Dose Unknown 2022-0 3-29 00:00: 00 No Dose Unknown 2022-0 3-29 00:00: 00 No Dose Unknown 2022-0 3-29 00:00: 00 No Dose Unknown 2022-0 3-29 00:00: 00 Yes Ranjan Arredondo Dose Unknown 2022-0 3-29 00:00: 00 Yes Ranjan Arredondo Dose Unknown 2022-0 3-29 00:00: 00 Yes Ranjan Arredondo Dose Unknown 2022-0 3-29 00:00: 00 Yes Ranjan Arredondo Dose Unknown 2022-0 3-29 00:00: 00 Yes Ranjan Arredondo Dose Unknown 2022-0 3-29 00:00: 00 Yes Ranjan Arredondo Dose Unknown 2022-0 3-21 00:00: 00 No Dose Unknown 2022-0 3-21 00:00: 00 No Dose Unknown 2022-0 3-21 00:00: 00 No Dose Unknown 2022-0 3-21 00:00: 00 No Dose Unknown 2022-0 3-21 00:00: 00 No Dose Unknown 2022-0 3-21 00:00: 00 No Dose Unknown 2022-0 3-21 00:00: 00 Yes Ranjan Arredondo Dose Unknown 2022-0 3-21 00:00: 00 Yes Ranjan Arredondo Dose Unknown 2022-0 3-21 00:00: 00 Yes Ranjan Arredondo Dose Unknown 2022-0 3-21 00:00: 00 Yes Ranjan Arredondo Dose Unknown 2022-0 3-21 00:00: 00 Yes Ranjan Arredondo Dose Unknown 2022-0 3-21 00:00: 00 Yes Ranjan Arredondo Zoloft 100 mg tablet 2022-0 3-07 00:00: 00 No 1mg hydroxyzine HCl 50 mg tablet 2022-0 3-07 00:00: 00 No 1mg Dose Unknown 2022-0 3-07 00:00: 00 Yes Ranjan Arredondo Dose Unknown 3-07 00:00: 00 Yes Ranjan Arredondo Zoloft 50 mg tablet 2- 00:00: 00 No 1mg hydroxyzine HCl 10 mg tablet 2-14 00:00: 00 No 1mg Dose Unknown 11-24 00:00: 00 Yes Ranjan Arredondo Dose Unknown 2- 00:00: 00 Yes Ranjan Arredondo Zoloft 50 mg tablet - 00:00: 00 No 1mg hydroxyzine HCl 10 mg tablet - 00:00: 00 No 1mg Dose Unknown - 00:00: 00 Yes Ranjan Arredondo Dose Unknown 11-05 00:00: 00 Yes Ranjan Arredondo glipizide ER 5 mg tablet, extended release 24 hr 2020-10 00:00: 00 No 1mg gabapentin 100 mg capsule 2020-10 00:00: 00 No 1mg Dose Unknown 2020-10 00:00: 00 Yes Ranjan Arredondo Dose Unknown 2020-10 00:00: 00 Yes Ranjan Arredondo cefTRIAXone (ROCEPHIN) 1,000 mg in NaCl 0.9% (NS) 50 mL MINI-BAG 2020-10 05:30: 00 08-08 05:05 :00 No 1000mg 1,000 mg, IV Piggyback, ONCE, 1 dose, On Wed08/08/21 at 0030, Administer over 30 Minutes, 50 mL
Reas on for Anti-Infec tive: Documented Infection< br>Documen jennifer Infection Site: Urine
D uration of Therapy: Other (see Comments) [facility] insulin regular human (HUMULIN R) injection 5 Units 2020-10 05:30: 00 08-08 04:32 :00 No 5U 5 Units, Subcutaneo us, ONCE, 1 dose, On Wed08/08/21 at 0030, Routine [facility] NaCl 0.9% (NS) IV infusion 1,000 mL 2020-10 04:45: 00 Yes 1000mL at 999 mL/hr, Intravenou s, CONTINUOUS , Starting on Natasha 08/07/21 at 2345, Until Discontinu ed, Routine [facility] Nitrofurant oin&Nit. Macrocryst (MACROBID) 100 mg capsule 2020-10 00:00: 00 Yes [id number] 100mg Take 1 capsule by mouth 2 (two) times daily. [facility] glipizide ER 5 mg tablet, extended release 24 hr 2020-10 00:00: 00 No 1mg Dose Unknown 2020-10 00:00: 00 Yes Ranjan Arredondo ondansetron (ZOFRAN (PF)) injection 4 mg 04-06 07:00: 00 04-06 06:15 :00 No 4mg 4 mg, Slow IV Push, ONCE, 1 dose, 04/06/20 at 0200, [facility] NaCl 0.9% (NS) bolus infusion 1,000 mL 04-06 06:00: 00 04-06 07:41 :00 No 1000mL at 999 mL/hr, 1,000 mL, IV Infusion, ONCE, 1 dose, 04/06/20 at 0100, [facility] ibuprofen (IBU) tablet 600 mg 04-06 05:45: 00 04-06 04:44 :00 No 600mg 600 mg, Oral, ONCE, 1 dose, 04/06/20 at 0045, [facility] NaCl 0.9% (NS) bolus infusion 1,000 mL 04-06 05:00: 00 04-06 07:41 :00 No 1000mL at 999 mL/hr, 1,000 mL, IV Infusion, ONCE, 1 dose, 04/06/20 at 0000, [facility] ondansetron (ZOFRAN ODT) 4 mg disintegrat ing tablet 04-06 00:00: 00 Yes [id number] 4mg Take 1 tablet by mouth every 8 (eight) hours as needed for Nausea and Vomiting (N/V). [facility] norgestimat e-ethinyl estradiol 0.18/0.215/ 0.25 mg-25 mcg tablet 2017-10 00:00: 00 Yes 1{tbl} Take 1 tablet by mouth daily. [facility] Immunizations Ordered Immunization Name Filled Immunization Name Date Status Comments Source Moderna COVID-19 Vaccine Moderna COVID-19 Vaccine 2021-11-18 00:00:00 Completed Ranjan Arredondo Moderna COVID-19 Vaccine 2021-11-18 00:00:00 Completed Vital Signs Vital Name Observation Time Observation Value Comments S jamie Systolic blood pressure 2022-04-22 04:52:00 104 mm[Hg] [facility] Diastolic blood pressure 2022-04-22 04:52:00 61 mm[Hg] [facility] Heart rate 2022-04-22 04:52:00 84 /min [facility] Respiratory rate 2022-04-22 04:52:00 23 /min [facility] Oxygen saturation in Arterial blood by Pulse oximetry 2022-04-22 04:52:00 98 /min [facility] Body temperature 2022-04-22 02:55:00 36.61 Danita [facility] Body height 2022-04-22 02:55:00 165.1 cm [facility] Body weight 2022-04-22 02:55:00 81.647 kg [facility] BMI 2022-04-22 02:55:00 29.95 kg/m2 [facility] Systolic blood pressure 2021-08-08 05:32:00 111 mm[Hg] [facility] Diastolic blood pressure 2021-08-08 05:32:00 85 mm[Hg] [facility] Heart rate 2021-08-08 05:32:00 102 /min [facility] Respiratory rate 2021-08-08 05:32:00 16 /min [facility] Oxygen saturation in Arterial blood by Pulse oximetry 2021-08-08 05:32:00 99 /min [facility] Body temperature 2021-08-08 03:02:00 37.33 Danita [facility] Body height 2021-08-08 03:02:00 165.1 cm [facility] Body weight 2021-08-08 03:02:00 83.915 kg [facility] BMI 2021-08-08 03:02:00 30.79 kg/m2 [facility] Systolic blood pressure 2020-04-06 07:00:00 109 mm[Hg] [facility] Diastolic blood pressure 2020-04-06 07:00:00 70 mm[Hg] [facility] Heart rate 2020-04-06 07:00:00 95 /min [facility] Respiratory rate 2020-04-06 07:00:00 23 /min [facility] Oxygen saturation in Arterial blood by Pulse oximetry 2020-04-06 07:00:00 94 /min [facility] Body temperature 2020-04-06 05:44:33 38.78 Danita [facility] Body height 2020-04-06 04:35:00 [facility] 2020-04-06 04:35:00 81.647 kg [facility] BMI 2020-04-06 04:35:00 29.95 kg/m2 [facility] Systolic blood pressure 2020-04-06 07:00:00 109 mm[Hg] [facility] Diastolic blood pressure 2020-04-06 07:00:00 70 mm[Hg] [facility] Heart rate 2020-04-06 07:00:00 95 /min [facility] Res[facility] rate 2020-04-06 07:00:00 23 /min [facility] Oxygen saturation in Arterial blood by Pulse oximetry 2020-04-06 07:00:00 94 /min [facility] Body temperature 2020-04-06 05:44:33 38.78 Danita [facility] Body height 2020-04-06 04:35:00 165.1 cm [facility] weight 2020-04-06 04:35:00 81.647 kg [facility] BMI 2020-04-06 04:35:00 29.95 kg/m2 [facility] Height Measured 2024-12-22 09:07:00 65.00 inches Ranjan F Arnulfo Body Temperature 2024-12-22 09:07:00 98.50 degrees Ranjan F Arnulfo Heart Rate 2024-12-22 09:07:00 98.00 /min Mariya en F Arnulfo Respiratory Rate 2024-12-22 09:07:00 18.00 /min Ranjan F Arnulfo BP Systolic 2024-12-22 09:07:00 138 mm[Hg] Step hen F Arnulfo BP Diastolic 2024-12-22 09:07:00 88 mm[Hg] Lane phen F Arnulfo Weight Measured 2024-12-22 09:07:00 161.00 pounds Ranjan F Arnulfo BP Systolic 2023-08-16 15:29:00 125 mm[Hg] Step hen F Arnulfo BP Diastolic 2023-08-16 15:29:00 88 mm[Hg] Lane phen F Arnulfo Weight Measured 2023-08-16 15:29:00 171.20 pounds Ranjan F Arnulfo Height Measured 2023-08-16 15:29:00 65.00 inches Ranjan F Arnulfo Body Temperature 2023-08-16 15:29:00 98.20 degrees Ranjan F Arnulfo Heart Rate 2023-08-16 15:29:00 102.00 /min Step hen F Arnulfo Respiratory Rate 2023-08-16 15:29:00 18.00 /min Ranjan F Arnulfo Heart Rate 2023-04-28 16:14:00 105.00 /min Step hen F Arnulfo Respiratory Rate 2023-04-28 16:14:00 18.00 /min Ranjan F Arnulfo BP Systolic 2023-04-28 16:14:00 124 mm[Hg] Step hen F Arnulfo BP Diastolic 2023-04-28 16:14:00 100 mm[Hg] Lane phen F Arnulfo Weight Measured 2023-04-28 16:14:00 175.00 pounds Ranjan F Arnulfo Height Measured 2023-04-28 16:14:00 65.00 inches Ranjan F Arnulfo Body Temperature 2023-04-28 16:14:00 98.20 degrees Ranjan F Arnulfo BP Systolic 2022-10-21 17:29:00 133 mm[Hg] Step hen F Arnulfo BP Diastolic 2022-10-21 17:29:00 91 mm[Hg] Lane phen F Arnulfo Weight Measured 2022-10-21 17:29:00 182.60 pounds Ranjan F Arnulfo Height Measured 2022-10-21 17:29:00 65.00 inches Ranjan F Arnulfo Body Temperature 2022-10-21 17:29:00 97.50 degrees Ranjan F Arnulfo Heart Rate 2022-10-21 17:29:00 109.00 /min Step hen F Arnulfo Respiratory Rate 2022-10-21 17:29:00 Ranjan F Arnulfo BP Systolic 2022-04-22 09:03:00 115 mm[Hg] Step hen F Arnulfo BP Diastolic 2022-04-22 09:03:00 79 mm[Hg] Lane phen F Arnulfo Weight Measured 2022-04-22 09:03:00 186.60 pounds Ranjan F Arnulfo Height Measured 2022-04-22 09:03:00 65.00 inches Ranjan F Arnulfo Body Temperature 2022-04-22 09:03:00 97.70 degrees Ranjan F Arnulfo Heart Rate 2022-04-22 09:03:00 96.00 /min Mariya en F Arnulfo Respiratory Rate 2022-04-22 09:03:00 16.00 /min Ranjan F Arnulfo BP Systolic 2021-11-24 15:14:00 128 mm[Hg] Step hen F Arnulfo BP Diastolic 2021-11-24 15:14:00 84 mm[Hg] Lane phen F Arnulfo Weight Measured 2021-11-24 15:14:00 191.60 pounds Ranjan F Arnulfo Height Measured 2021-11-24 15:14:00 65.00 inches Ranjan F Arnulfo Body Temperature 2021-11-24 15:14:00 98.30 degrees Ranjan F Arnulfo Heart Rate 2021-11-24 15:14:00 89.00 /min Mariya en F Arnulfo Respiratory Rate 2021-11-24 15:14:00 18.00 /min Ranjan F Arnulfo BP Systolic 2021-11-05 11:54:00 151 mm[Hg] Step hen F Arnulfo BP Diastolic 2021-11-05 11:54:00 105 mm[Hg] Lane phen F Arnulfo Weight Measured 2021-11-05 11:54:00 189.20 pounds Ranjan F Arnulfo Height Measured 2021-11-05 11:54:00 65.00 inches Ranjan F Arnulfo Body Temperature 2021-11-05 11:54:00 97.90 degrees Ranjan F Arnulfo Heart Rate 2021-11-05 11:54:00 110.00 /min Step hen F Arnulfo Respiratory Rate 2021-11-05 11:54:00 18.00 /min Ranjan F Arnulfo BP Systolic 2021-09-23 16:36:00 117 mm[Hg] Step hen F Arnulfo BP Diastolic 2021-09-23 16:36:00 87 mm[Hg] Lane phen F Arnulfo Weight Measured 2021-09-23 16:36:00 191.80 pounds Ranjan F Arnulfo Height Measured 2021-09-23 16:36:00 64.57 inches Ranjan F Arnulfo Body Temperature 2021-09-23 16:36:00 Ranjan F Arnulfo Heart Rate 2021-09-23 16:36:00 Mariya en F Arnulfo Respiratory Rate 2021-09-23 16:36:00 Ranjan F Arnulfo BP Systolic 2021-08-06 16:43:00 131 mm[Hg] Step hen F Arnulfo BP Diastolic 2021-08-06 16:43:00 87 mm[Hg] Lane phen F Arnulfo Weight Measured 2021-08-06 16:43:00 191.20 pounds Ranjan F Arnulfo Height Measured 2021-08-06 16:43:00 64.57 inches Ranjan F Arnulfo Body Temperature 2021-08-06 16:43:00 97.50 degrees Ranjan F Arnulfo Heart Rate 2021-08-06 16:43:00 122.00 /min Step hen F Arnulfo Respiratory Rate 2021-08-06 16:43:00 Ranjan F Arnulfo Procedures Procedure Date / Time Performed Performing Clinician Source POCT GLUCOSE (AUTOMATED) 2022-04-22 04:29:00 Nando Ochoa [facility] POCT GLUCOSE (AUTOMATED) 2022-04-22 03:56:[facility]-22 03:08:00 Nando Ochoa [facility] URINE DRUG (IMMUNOASSAY) - COMPREHENSIVE DRUG SCREEN W/O REFLEX 2022-04-22 03:08:00 Nando Ochoa [facility] COMP. METABOLIC PANEL ([id number]) 2022-04-22 03:02:00 Sandhir, [facility] CBC WITH DIFF 2022-04-22 03:02:00 [facility] POCT GLUCOSE (AUTOMATED) 2022-04-22 03:01:00 Alexy [facility] EKG-12 LEAD 2021-08-08 05:25:56 Marco Chang [facility] POCT GLUCOSE (AUTOMATED) 2021-08-08 05:09:00 Ean Chang [facility] COVID-19 (ID NOW RAPID TESTING) 2021-08-08 03:49:00 Marco Chang [facility] LIPASE 2021-08-08 03:49:00 Marco Chang [facility] MAGNESIUM 2021-08-08 03:49:00 Danie [facility] TROPONIN I 2021-08-08 03:49[facility] COMP. METABOLIC PANEL ([id number]) 2021-08-08 03:49:00 Marco Chang [facility] CBC WITH DIFF 2021-08-08 03:49:00 Marco Chang [facility] URINALYSIS 2021-08-08 03:49:00 Marco Chang [facility] POCT TEST 2020-04-06 05:55:00 Mariama Madrigal [facility] URINALYSIS 2020-04-06 05:05:00 [facility] LIPASE 2020-04-06 04:58:00 [facility] COMP. METABOLIC PANEL ([id number]) 2020-04-06 04:58:00 Mariama Madrigal [facility] N-TERMINAL PRO-BNP 2020-04-06 04:58:00 Mariama Madrigal [facility] CBC WITH DIFFERENTIAL 2020-04-06 04:58:00 Stewart Madrigal [facility] LACTIC ACID WHOLE BLOOD 2020-04-06 04:57:00 Me peggy Madrigal [facility] ASSIGNMENT OF BENEFITS 2020-04-06 04:23:58 Docto r Unassigned, [place] [facility] NOTICE OF PRIVACY PRACTICES 2020-04-06 04:23:28 Doctor Unassigned, [place] [facility] CONSENT/REFUSAL FOR DIAGNOSIS AND TREATMENT 2020-04-06 04:23:14 Doctor Unassigned, [place] [facility] Plan of Care Planned Activity Planned Date Details Comments Source Goal Plan of Care Note [code = 72874-3] Goal Plan of Care Note [code = 79864-3] Goal Plan of Care Note [code = 61186-5] Goal Plan of Care Note [code = 61610-8] Goal Plan of Care Note [code = 65884-2] Goal Plan of Care Note [code = 59991-9] Encounters Start Date/Time End Date/Time Encounter Type Admission Type Attending [facility] Facility Care Department Encounter ID Source 2023-11-06 18:40:47 Outpatient ISAUROSarah RONA [id number] [facility] 2021-08-08 03:13:29 Emergency [facility] [id number] [facility] 2024-12-22 08:56:25 2024-12-22 08:56:25 Outpatient S[facility] [id number] Ranjan F Arnulfo 2024-12-22 00:00:00 2024-12-22 00:00:00 Outpatient Visit [facility] [id number] Ranjan Miquel Arnulfo 2024-02-09 13:06:43 2024-02-09 13:06:43 Outpatient [facility] [id number] Ranjan F Arnulfo 2023-11-10 14:45:00 2023-11-10 17:30:00 Emergency E [facility]EL [facility] [id number] [facility] 2023-08-16 15:17:12 2023-08-16 15:17:12 Outpatient [facility] [id number] Ranjan Arredondo 2023-04-28 16:00:27 2023-04-28 16:00:27 Outpatient [facility] [id number] Ranjan Miquel Arredondo 2022-10-21 17:17:30 2022-10-21 17:17:30 Outpatient [facility] [id number] Ranjan Arredondo 2022-04-22 00:00:00 2022-04-22 00:00:00 Outpatient Visit [id number] 2022-04-21 21:49:00 2022-04-21 23:58:00 [facility] ERT [id number] [facility] 2022-04-21 21:49:00 2022-04-21 23:58:[address] [facility] [id number] [facility] 2021-08-07 21:55:00 2021-08-08 00:33:00 Emergency X MARCO CHANG [facility] ERT [id number] [facility] 2021-08-07 21:55:00 2021-08-08 00:33:[address] [facility] [id number] [facility] 2020-05-20 16:40:00 2020-05-20 16:40:00 Outpatient R ORA NOEL [facility] [id number] [facility] 2020-04-08 00:00:00 2020-04-08 00:00:00 Letter (Out) Mariama Madrigal [facility] [id number] [facility] 2020-04-08 00:00:00 2020-04-08 00:00:00 Letter (Out) Mariama Madrigal [facility] [id number] [id number] [facility] 2020-04-08 00:00:00 2020-04-08 00:00:00 Letter (Out) Mariama Madrigal [facility] [id number] [id number] [facility] 2020-04-08 00:00:00 2020-04-08 00:00:00 Letter (Out) Mariama Madrigal [facility] [id number] 4.2.7.2.686 [id number] 2020-04-08 00:00:00 2020-04-08 00:00:00 Letter (Out) Mariama Madrigal [facility] [id number] [id number] [id number] 000 [id number] 2020-04-08 00:00:00 2020-04-08 00:00:00 Letter (Out) Mariama Madrigal [facility] [id number] [id number] 4.2.7.2.686 [id number] 000 [id number] 2020-04-05 23:30:47 2020-04-06 02:43:00 Emergency Mariama Madrigal [facility] [id number] 4.2.7.2.686 [id number] [facility] 2020-04-05 23:30:47 2020-04-06 02:43:00 Emergency Mariama Madrigal [facility] [id number] 4.2.7.2.686 [id number] Results Test Description Test Time Test Comments Results Result Co mments Source Ranjan ArredondoLIPID [id number] 00:00:00* Test Item Value Reference Range Interpretation Comme nts CHOLESTEROL (test code = 2210) 274 MG/DL TRIGLYCERIDES (test code = 2232) 294 MG/DL HDL CHOLESTEROL (test code = 2220) 50 MG/DL CALC LDL CHOL (test code = 2237) 174 MG/DL RISK RATIO LDL/HDL (test cod e = 2238) 3.48 RATIO Ranjan ArredondoHEMOGLOBIN [id number] 00:00:00* Test Item Value Reference Range Interpretation Comme myles HEMOGLOBIN A1c (test code = 97244) 12.5 % Ranjan ArredondoALBUMIN/CREATININE RATIO, RANDOM [id number] 00:00:00* Test Item Value Reference Range Interpretation Comme myles CREATININE, URINE, CONC. (te st code = 2072) 137.2 MG/DL ALBUMIN, URINE, RANDOM (test code = 65435) 1.0 MG/DL CALC ALBUMIN/CREAT, RND (krystal t code = 73541) 7 MG/G Ranjan ArredondoTSH, THIRD [id number] 00:00:00* Test Item Value Reference Range Interpretation Comme myles TSH, THIRD GENERATION (test code = 2821) 1.040 UIU/ML Ranjan Lafleur [place]POCT GLUCOSE (AUTOMATED)2022-04-22 04:42:38* Test Item Value Reference Range Interpretation Comme nts POCT GLU (test code = 4990602643) 323 mg/dL 70-110 H Lab Interpretation (test cod e = 89582-5) Abnormal [facility] GLUCOSE (AUTOMATED)2022-04-22 04:08:37* Test Item Value Reference Range Interpretation Comme nts POCT GLU (test code = 6793554321) 455 mg/dL 70-110 HH Lab Interpretation (test cod e = 76966-1) Abnormal [facility] GLUCOSE (AUTOMATED)2022-04-22 03:05:52* Test Item Value Reference Range Interpretation Comme nts POCT GLU (test code = 0697565156) 444 mg/dL 70-110 H Lab Interpretation (test cod e = 40909-4) Abnormal [facility] GLUCOSE (AUTOMATED)2021-08-08 05:16:03* Test Item Value Reference Range Interpretation Comme nts POCT GLU (test code = 1568253881) 280 mg/dL 70-110 H Lab Interpretation (test cod e = 78308-0) [facility]normal [facility] [id number] 04:23:14* Test Item Value Reference Range Interpretation Comments TROPONIN I (test code = 4970580893) <0.012 See_Comment [Automated message] The system which [...] of biotin. Lab Interpretation (test code = 31156-1) Normal [facility]2021-[facility]-29 04:12:51* Test Item Value Reference Range Interpretation Comme nts MAGNESIUM (test code = 5892209022) 1.7 mg/dL 1.7-2.4 Lab Interpretation (test cod e = 36773-7) Normal [facility]OLIC PANEL (45562)2021-08-08 04:12:10* Test Item Value Reference Range Interpretation Comme nts NA (test code = 5761682744) 133 mmol/L 135-145 L K (test code = 4717164258) 3.9 mmol/L 3.5-5.0 CL (test code = 4599262548) 97 mmol/L 98-108 L CO2 TOTAL (test code = 4615880905) 27 mmol/L 23-31 AGAP (test code = 1871646117) 2-16 BUN (test code = 8677113944) 13 mg/dL 7-23 GLUCOSE (test code = 2101566265) 334 mg/dL 70-110 H CREATININE (test code = 5577036692) 0.58 mg/dL 0.50-1.04 TOTAL BILI (test code = 4652106300) 1.5 mg/dL 0.1-1.1 H CALCIUM (test code = 6063958076) 10.0 mg/dL 8.6-10.6 T PROTEIN (test code = 9448506934) 7.9 g/dL 6.3-8.2 ALBUMIN (test code = 5372973392) 4.3 g/dL 3.5-5.0 ALK PHOS (test code = 7736383633) 183 U/L 34-122 H ALTv (test code = 1742-6) 20 U/L 5-35 AST(SGOT) (test code = 6105744971) 19 U/L 13-40 eGFR (test code = 8980854063) mL/min/1.73m2 HALEY (test code = HALEY) Association [...] imaging tests). Lab Interpretation (test code = 61036-3) Abnormal [facility] 04:12:10* Test Item Value Reference Range Interpretation Comme nts LIPASE (test code = 7794707049) 117 U/L 0-220 Lab Interpretation (test cod e = 10497-4) Normal [facility] WITH [id number] 04:02:51* Test Item Value Reference Range Interpretation [...] 33.3 g/dL 31.6-35.1 RDW-SD (test code = 75870-5) 38.3 fL 39.0-49.9 L RDW-CV (test code = 788-0) 12.4 % 12.0-15.5 PLT (test code = 777-3) See_Comment [Automated messa ge] The system which generated this result transmitted reference range: 166 - 358 10*3/?L. The reference range was not used to interpret this result as normal/abnormal. MPV (test code = 99005-1) 11.7 fL 9.5-12.9 NRBC/100 WBC (test code = 8630543523) See_Comment [Automated [employer] ssage] The system which generated this result transmitted reference range: 0.0 - 10.0 /100 WBCs. The reference range was not used to interpret this result as normal/abnormal. NRBC x10^3 (test code = 2349230570) <0.01 See_Comment [Automated messa ge] The system which generated this result transmitted reference range: 10*3/?L. The reference range was not used to interpret this result as normal/abnormal. GRAN MAT (NEUT) % (test code = 770-8) 67.3 % IMM GRAN % (test code = 8325428590) 0.60 % LYMPH % (test code = 736-9) 22.5 % MONO % (test code = 5905-5) 7.7 % EOS % (test code = 713-8) 1.5 % BASO % (test code = 706-2) 0.4 % GRAN MAT x10^3(ANC) (test code = 2033492176) 4.87 10*3/uL 1.88-7.09 IMM GRAN x10^3 (test code = 6123127952) 0.04 10*3/uL 0.00-0.06 LYMPH x10^3 (test code = 731-0) 1.63 10*3/uL 1.32-3.29 MONO x10^3 (test code = 742-7) 0.56 10*3/uL 0.33-0.92 EOS x10^3 (test code = 711-2) 0.11 10*3/uL 0.03-0.39 BASO x10^3 (test code = 704-7) 0.03 10*3/uL 0.01-0.07 Lab Interpretation (test code = 35802-4) Abnormal [facility] (COVID-19) by RT-PCR (HIGH RISK) 2020-05-15 00:00:00* Test Item Value Reference Range Interpretation Comme nts SARS-CoV-2 INTERPRETATION (t est code = 35484) NEGATIVE SOURCE (test code = 08132) NOT SPECIFIED SARS-CoV-2 (COVID-19) by RT-PCR (HIGH RISK)2020-05-15 00:00:00* Test Item Value Reference Range Interpretation Comme nts SARS-CoV-2 INTERPRETATION (t est code = 10903) NEGATIVE SOURCE (test code = 01053) NOT SPECIFIED Ranjan Lafleur AustinPOCT [id number] 05:55:00* Test Item Value Reference Range Interpretation Comme nts POCT PREG (test code = 1605) Negative On board controls acceptable with C Line (test code = 3574) Present POCT PREG LOT # (test code = 3575) HCG [id number] POCT PREG TEST DATE ( test code = 3576) 07/10/2021 Lab Interpretation (test cod e = 07073-7) Normal [facility]MINAL [id number] 05:51:00* Test Item Value Reference Range Interpretation Comme nts NT-proBNP (test code = 0093508113) 55 pg/mL See_Comment [Automated message] The system which generated this result transmitted reference range: <=125. The reference range was not used to interpret this result as normal/abnormal. HALEY (test code = HALEY) Biotin has been reported to cause a negative bias, interpret results relative to patient's use of biotin. Lab Interpretation (test code = 24811-7) Normal [facility] MET[facility]OLIC PANEL (46344)2020-04-06 05:42:00* Test Item Value Reference Range Interpretation Comme nts NA (test code = 7207663510) 134 mmol/L 135-145 L K (test code = 5173568649) 4.1 mmol/L 3.5-5 CL (test code = 1383208089) 101 mmol/L 98-108 CO2 TOTAL (test code = 9971650437) 24 mmol/L 23-31 AGAP (test code = 7564413287) 2-16 BUN (test code = 0837516764) 8 mg/dL 7-23 GLUCOSE (test code = 8923521384) 245 mg/dL 70-110 H CREATININE (test code = 5182639871) 0.66 mg/dL 0.5-1.04 TOTAL BILI (test code = 2127439636) 0.9 mg/dL 0.1-1.1 CALCIUM (test code = 4654210525) 9.4 mg/dL 8.6-10.6 T PROTEIN (test code = 0169597657) 8.3 g/dL 6.3-8.2 H ALBUMIN (test code = 9445624601) 4.5 g/dL 3.5-5 ALK PHOS (test code = 7479443440) 115 U/L 34-122 ALTv (test code = 1742-6) 31 U/L 5-35 AST(SGOT) (test code = 9000613401) 30 U/L 13-40 eGFR Calculation (Non-) (test code = 1168874196) mL/min/1.73m2 eGFR Calculation () (test code = 5744702050) mL/min/1.73m2 HALEY (test code = HALEY) Association [...] imaging tests). Lab Interpretation (test code = 64583-2) Abnormal [facility]2020-06-27 05:42:00* Test Item Value Reference Range Interpretation Comme nts LIPASE (test code = 2972444349) 60 U/L 0-220 Lab Interpretation (test cod e = 37893-4) Normal [facility]2020-06-27 05:35:00* Test Item Value Reference Range Interpretation Comme nts APPEARANCE (test code = 0842832403) Cloudy Clear A COLOR (test code = 2044782198) Benita Yellow A PH (test code = 0028089061) 4.8-8.0 SP GRAVITY (test code = 9131573224) 1.003-1.030 GLU U QUAL (test code = 1307796577) Normal Normal BLOOD (test code = 5814119007) Negative Negative KETONES (test code = 4290578301) Negative Negative PROTEIN (test code = 2887-8) Negative Negative UROBILIN (test code = 3595520195) 4.0 mg/dL Normal A BILIRUBIN (test code = 0876768423) Negative Negative NITRITE (test code = 8010808381) Negative Negative LEUK PATRICIA (test code = 8266356347) Negative Negative RBC/HPF (test code = 4501064659) See_Comment [Automated messa ge] The system which generated this result transmitted reference range: 0 - 3 HPF. The reference range was not used to interpret this result as normal/abnormal. WBC/HPF (test code = 6093890941) See_Comment [Automated messa ge] The system which generated this result transmitted reference range: 0 - 5 HPF. The reference range was not used to interpret this result as normal/abnormal. BACTERIA (test code = 3841145504) Many Negative A MUCOUS (test code = 8017664489) Slight Negative LPF A SQ EPITH (test code = 6639875773) HPF Lab Interpretation (test code = 44430-6) Abnormal [facility] WITH [id number] 05:26:00* Test Item Value Reference Range Interpretation [...] 33.9 g/dL 31.6-35.1 RDW-SD (test code = 46634-8) 39.8 fL 39-49.9 RDW-CV (test code = 788-0) 12.8 % 12-15.5 PLT (test code = 777-3) See_Comment [Automated [employer] ge] The system which generated this result transmitted reference range: 166 - 358 10*3/?L. The reference range was not used to interpret this result as normal/abnormal. MPV (test code = 05405-1) 11.8 fL 9.5-12.9 NRBC/100 WBC (test code = 9146833936) See_Comment [Automated [employer] ssage] The system which generated this result transmitted reference range: 0.0 - 10.0 /100 WBCs. The reference range was not used to interpret this result as normal/abnormal. NRBC x10^3 (test code = 0073813136) <0.01 See_Comment [Automated [employer] ge] The system which generated this result transmitted reference range: 10*3/?L. The reference range was not used to interpret this result as normal/abnormal. GRAN MAT (NEUT) % (test code = 770-8) 81.5 % IMM GRAN % (test code = 5376734329) 0.80 % LYMPH % (test code = 736-9) 7.7 % MONO % (test code = 5905-5) 7.2 % EOS % (test code = 713-8) 2.3 % BASO % (test code = 706-2) 0.5 % GRAN MAT x10^3(ANC) (test code = 1305010276) 4.95 10*3/uL 1.88-7.09 IMM GRAN x10^3 (test code = 1536921009) 0.05 10*3/uL 0-0.06 LYMPH x10^3 (test code = 731-0) 0.47 10*3/uL 1.32-3.29 L MONO x10^3 (test code = 742-7) 0.44 10*3/uL 0.33-0.92 EOS x10^3 (test code = 711-2) 0.14 10*3/uL 0.03-0.39 BASO x10^3 (test code = 704-7) 0.03 10*3/uL 0.01-0.07 Lab Interpretation (test code = 21114-0) Abnormal [facility] AtlantaLactic Acid Whole [id number] 05:15:00* Test Item Value Reference Range Interpretation Comme nts LACTIC ACID (test code = 8971468324) 1.78 mmol/L 0.3-2.6 [facility] Notes Date/Time Note Provider Source [facility]"
[2025-05-26] MEDS ORDERED: HYDROCODONE/APAP 5/325 MG TAB ONE (20:41)
--- NOTE | 2025-05-26 21:39 | RAD REPORT ---
EXAMINATION: CT HEAD WITHOUT CONTRAST CT CERVICAL SPINE WITHOUT CONTRAST CLINICAL INDICATION: Head and neck injury status post fall. Head and neck pain TECHNIQUE: Axial CT images from the skull base to the vertex without intravenous contrast. Axial CT i mages through the cervical spine were obtained without intravenous contrast. Sagittal and coronal reformatted images were created from the data set. Coronal and sagittal reformatted images were creat ed from the data set. One or more of the following dose reduction techniques were used: Automated exposure control, adjustment of the mA and/or kV according to patient size, and/or iterative reconstr uction. Unless otherwise specified, incidental findings do not require dedicated imaging follow-up. [id number]. Comparison: none FINDINGS: An intracranial bleed is not seen. Ventricles are normal in caliber. No significant hypodensity within the brain No extra-axial fluid collection. No fluid within the sinuses/mastoids No fracture or dislocation is seen involving the cervical spine. IMPRESSION: No acute intracranial abnormality noted A cervical fracture is not seen. 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
--- NOTE | 2025-05-26 21:48 | RAD REPORT ---
EXAMINATION: CT LUMBAR SPINE WITHOUT CONTRAST CLINICAL INDICATION: Fall with back pain TECHNIQUE: Axial CT images were obtained through the lumbar spine in soft tissue and bone windows wit hout intravenous contrast. Coronal and Sagittal reformatted images were created from the data set. One or more of the following dose reduction techniques were used: Automated exposure control, adjustm ent of the mA and/ or kV according to patient size, and/or iterative reconstruction. Unless otherwise specified, incidental findings do not require dedicated imaging follow-up. COMPARISON: No prior exam. FINDINGS: For purposes of this dictation, it is assumed that there are 5 non rib-bearing lumbar type vertebrae, and the most caudal fully segmented lumbar vertebra is labeled L5. No fracture seen No dislocation. Small left lateral disc herniation L4-5 IMPRESSION: No fracture seen. If the patient continues to have symptoms to suggest spinal canal pathology then MR I would be recommended
--- NOTE | 2025-05-26 22:08 | EDPHYS ---
Physician Documentation [facility] Name: Chelsie Zaragoza Age: 50 yrs Sex: Female : 1975 Arrival Date: 05/26/2025 Time: 20:15 Bed 18 Private MD: ED Physician David Wylie HPI: 05/26 22:08 This 50 yrs old Female presents to ER via Wheelchair with complaints of Fall ms3 Injury. 22:08 50-year-old female with past medical history of diabetes, pneumonia [place] the [facility] [place] department after slipping and falling at 6:30 PM in a bathtub. Patient endorses 5 minutes of loss of consciousness. Patient states she is having low back pain. Patient rates her overall discomfort as a 10/10. Patient endorses headache. She denies nausea or vomiting. She denies any alleviating or inciting factors.. 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 - Infectious Disease History:: Denies. - Social history:: Smoking status: Patient denies any tobacco usage or history of. Patient/guardian denies using alcohol, street drugs. ROS: 22:08 Constitutional: Negative for fever, and chills. Cardiovascular: Negative for chest ms3 pain, and palpitations. Respiratory: Negative for shortness of breath, cough, wheezing, and pleuritic chest pain, Abdomen/GI: Negative for abdominal pain, nausea, vomiting, diarrhea, and constipation, 22:08 MS/extremity: Positive for Back pain, 22:08 Neuro: Positive for headache, Exam: 22:08 Constitutional: This is a well developed, well nourished patient who is awake, alert, ms3 and in no acute distress. 22:08 Neck: External neck: tenderness, that is mild, Paraspinal muscle, 22:08 Back: pain, that is moderate, of the Lumbar spine, ROM is normal, normal spinal alignment noted, 22:08 Cardiovascular: Regular rate and rhythm with a normal S1 and S2. No gallops, murmurs, ms3 or rubs. Normal PMI, no JVD. No pulse deficits. Respiratory: Lungs have equal breath sounds bilaterally, clear to auscultation and percussion. No rales, rhonchi or wheezes noted. No increased work of breathing, no retractions or nasal flaring. Abdomen/GI: Soft, non-tender, with normal bowel sounds. No distension or tympany. No guarding or rebound. No evidence of tenderness throughout. Vital Signs: 20:29 BP 159 / 93; Pulse 101; Resp 18; Temp 98.5; Pulse Ox 99% ; Weight 68.04 kg; Height 5 bm8 ft. 5 in. ; Pain 10/10; 21:23 BP 113 / 79; Pulse 84; Resp 17; Temp 98.5; Pulse Ox 99% ; Pain 10/10; bm8 22:14 BP 136 / 89; Pulse 80; Resp 17; Temp 98.5; Pulse Ox 99% ; Pain 7/10; bm8 20:29 Body Mass Index 24.96 (68.04 kg, 165.1 cm) bm8 20:29 Pain Scale: Adult bm8 21:23 Pain Scale: Adult bm8 22:14 Pain Scale: Adult bm8 Edmonds Coma Score: 21:23 Eye Response: spontaneous(4). Motor Response: obeys commands(6). Verbal Response: bm8 oriented(5). Total: 15. 22:14 Eye Response: spontaneous(4). Motor Response: obeys commands(6). Verbal Response: bm8 oriented(5). Total: 15. MDM: 20:22 Medical Screening Exam initiated ms3 22:08 Differential diagnosis: closed head injury, contusion, fracture, sprain, strain. Data ms3 reviewed: vital signs, nurses notes, radiologic studies, and as a result, I will discharge patient. I considered the following discharge prescriptions or medication management in the emergency department Medications were administered in the Emergency Department. See MAR. Independent interpretation of the following test(s) in the Emergency Department CT Scan: My interpretation is CT head without contrast images reviewed by me did not reveal intracranial hemorrhage. Counseling: I had a detailed discussion with the patient and/or guardian regarding the historical points, exam findings, and any diagnostic results supporting the discharge/admit diagnosis, radiology results, the need for outpatient follow up, to return to the emergency department if symptoms worsen or persist or if there are any questions or concerns that arise at home. Special discussion: I discussed with the patient/guardian in detail that at this point there is no indication for admission to the hospital. It is understood, however, that if the symptoms persist or worsen the patient needs to return immediately for re-evaluation. ED course: Discussed imaging results with patient. Patient to follow-up with primary care physician in 2 to 3 days. All questions were answered. Return precautions discussed include worsening symptoms, or any other concerns. On reevaluation patient is alert and oriented x 4, no apparent distress, nontoxic-appearing, speaking full sentences.. 05/26 20:34 Order name: CT Head C Spine; Complete Time: 21:58 ms3 05/26 20:34 Order name: CT Lumbar Spine Wo Con; Complete Time: 21:58 ms3 05/26 20:34 Order name: CXR XRAY; Complete Time: 01:54 ms3 Administered Medications: 20:44 Drug: HYDROcodone-acetaminophen PO 5 mg-325 mg 1 tabs PO once Route: PO; bm8 21:26 Follow up: Response: No adverse reaction bm8 Disposition Summary: 05/26/25 22:08 Discharge Ordered Notes: Location: Home ms3 Condition: Stable ms3 Diagnosis - Fall on same level, unspecified ms3 - Headache ms3 - Low back pain ms3 Followup: ms3 - With: Yan Doan DO - When: 2 - 3 days - Reason: Re-evaluation by your physician Discharge Instructions: - Discharge Summary Sheet ms3 - Acute Back Pain, Adult ms3 - Fall Prevention in the Home, Adult ms3 Forms: - Medication Reconciliation Form ms3 - Antibiotic Education ms3 - Prescription Opioid Use ms3 - Patient Portal Instructions ms3 - Leadership Thank You Letter ms3 Prescriptions: - Cyclobenzaprine 5 mg Oral Tablet - take 1 tablet ORAL route 3 times per day As needed; 15 tablet; Refills: 0, ms3 Product Selection Permitted Signatures: Dispatcher [facility] David Wylie DO DO ms3 Paul Crews, RN RN bm8 Corrections: (The following items were deleted from the chart) 20:35 20:35 Chest Single View+[email or web address] ordered. [facility] 05/27 02:00 05/26 22:08 Back: pain, that is moderate, of the Lumbar spine, ROM is normal, normal ms3 spinal alignment noted, ms3
--- NOTE | 2025-05-26 22:08 | ER ---
Nurse's Notes [facility] Name: Chelsie Zaragoza Age: 50 yrs Sex: Female : 1975 Arrival Date: 05/26/2025 Time: 20:15 Bed 18 Private MD: Diagnosis: Fall on same level, unspecified;Headache;Low back pain Presentation: 05/26 20:29 Chief complaint: Patient states: I slipped and fell on the bathroom floor at an [employer], bm8 when I fell a shower curtain kp fell on top of my head and I think i was out for 5 mins. Coronavirus screen: At this time, the client does not indicate any symptoms associated with coronavirus-19. Ebola Screen: Patient negative for fever greater than or equal to 101.5 degrees Fahrenheit, and additional compatible Ebola Virus Disease symptoms Patient denies exposure to infectious person. Patient denies travel to an Ebola-affected area in the 21 days before illness onset. No symptoms or risks identified at this time. Initial Sepsis Screen: Does the patient meet any 2 criteria? No. Patient's initial sepsis screen is negative. Does the patient have a suspected source of infection? No. Patient's initial sepsis screen is negative. Risk Assessment: Do you want to hurt yourself or someone else? Patient reports no desire to harm self or others. Onset of symptoms was May 26, 2025 at 18:33. 20:29 Method Of Arrival: Wheelchair bm8 20:29 Acuity: YANNA 3 bm8 Triage Assessment: 20:32 General: Appears distressed, uncomfortable, Behavior is cooperative, appropriate for bm8 age, agitated. Pain: Complains of pain in left frontal area, left temporal area and back Pain currently is 20 out of 10 on a pain scale. EENT: No deficits noted. No signs and/or symptoms were reported regarding the EENT system. Neuro: No deficits noted. 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 Weakness in bilateral leg(s) Gait is unsteady, Speech is normal, Facial symmetry appears normal, Pupils are PERRLA, Intact. Cardiovascular: Denies chest pain, Capillary refill < 3 seconds in bilateral fingers Patient's skin is warm and dry. Respiratory: Airway is patent Respiratory effort is even, unlabored, Respiratory pattern is regular, symmetrical. GI: No signs and/or symptoms were reported involving the gastrointestinal system. : No signs and/or symptoms were reported regarding the genitourinary system. Derm: No signs and/or symptoms reported regarding the dermatologic system. Musculoskeletal: Circulation, motion, and sensation intact. Capillary refill < 3 seconds, in bilateral fingers. Range of motion: intact in all extremities, Reports weakness in right leg and left leg pain in back Pain is 20 out of 10 on a pain scale. 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 - Infectious Disease History:: Denies. - Social history:: Smoking status: Patient denies any tobacco usage or history of. Patient/guardian denies using alcohol, street drugs. Screenin:35 [facility] ED Fall Risk Assessment (Adult) History of falling in the last 3 months, bm8 including since admission Yes- single mechanical fall (1 pt) Confusion or Disorientation No (0 pts) Intoxicated or Sedated No (0 pts) Impaired Gait Yes (1 pt) Mobility Assist Device Used Yes (1 pt) Altered Elimination No (0 pt) Score/Fall Risk Level 3 or more points = High Risk Oriented to surroundings, Maintained a safe environment, Educated pt \T\ family on fall prevention, incl call for assistance when getting out of bed, Assessed \T\ reinforced patient's understanding of fall precautions, Provided non-skid footwear, Hourly rounding (assess needs \T\ fall precautionary measures) done, Used ambulatory aids as needed (educated on \T\ assisted with), Used gait belt as appropriate Implemented a Fall Risk Plan of Care. Abuse screen: Denies threats or abuse. Nutritional screening: No deficits noted. Tuberculosis screening: No symptoms or risk factors identified. Assessment: 20:30 Reassessment: see triage assessment. bm8 21:23 Reassessment: Patient appears in no apparent distress at this time. Patient and/or bm8 family updated on plan of care and expected duration. Pain level reassessed. Patient is alert, oriented x 3, equal unlabored respirations, skin warm/dry/pink. Patient states symptoms have not improved. 22:14 Reassessment: Patient appears in no apparent distress at this time. Patient and/or bm8 family updated on plan of care and expected duration. Pain level reassessed. Patient is alert, oriented x 3, equal unlabored respirations, skin warm/dry/pink. Patient states feeling better. Vital Signs: 20:29 BP 159 / 93; Pulse 101; Resp 18; Temp 98.5; Pulse Ox 99% ; Weight 68.04 kg; Height 5 bm8 ft. 5 in. ; Pain 10/10; 21:23 BP 113 / 79; Pulse 84; Resp 17; Temp 98.5; Pulse Ox 99% ; Pain 10/10; bm8 22:14 BP 136 / 89; Pulse 80; Resp 17; Temp 98.5; Pulse Ox 99% ; Pain 7/10; bm8 20:29 Body Mass Index 24.96 (68.04 kg, 165.1 cm) bm8 20:29 Pain Scale: Adult bm8 21:23 Pain Scale: Adult bm8 22:14 Pain Scale: Adult bm8 [place] Coma Score: 21:23 Eye Response: spontaneous(4). Motor Response: obeys commands(6). Verbal Response: bm8 oriented(5). Total: 15. 22:14 Eye Response: spontaneous(4). Motor Response: obeys commands(6). Verbal Response: bm8 oriented(5). Total: 15. ED Course: 20:17 Patient arrived in ED. [email or web address] 20:18 David Wylie DO is Attending Physician. ms3 20:28 Paul Crews, RN is Primary Nurse. bm8 20:32 Triage completed. bm8 20:32 Arm band placed on right wrist. bm8 20:35 Patient has correct armband on for positive identification. Bed in low position. Call bm8 light in reach. Side rails up X 1. Client placed on continuous cardiac and pulse oximetry monitoring. NIBP monitoring applied. Pulse ox on. NIBP on. Door closed. Noise minimized. Warm blanket given. Pillow given. Verbal reassurance given. Head of bed elevated. 20:35 No provider procedures requiring assistance completed. Patient maintains SpO2 bm8 saturation greater than 95% on room air. 21:06 CT Head C Spine In Process Unspecified. EDMS 21:08 CT Lumbar Spine Wo Con In Process Unspecified. EDMS 22:00 CXR XRAY In Process Unspecified. EDMS 22:06 Yan Doan DO is Referral Physician. ms3 22:14 Provided Education on: post er care. bm8 22:14 Patient did not have IV access during this emergency room visit. bm8 Administered Medications: 20:44 Drug: HYDROcodone-acetaminophen PO 5 mg-325 mg 1 tabs PO once Route: PO; bm8 21:26 Follow up: Response: No adverse reaction bm8 Medication: 20:35 VIS not applicable for this client. bm8 Outcome: 22:08 Discharge ordered by MD. ms3 22:14 Discharged to home ambulatory, bm8 22:14 Condition: stable 22:14 Discharge instructions given to patient, family, Instructed on discharge instructions, follow up and referral plans. Demonstrated understanding of instructions, follow-up care, Prescriptions given X 1, 22:16 Patient left the ED. bm8 Signatures: Dispatcher [employer] EDMS David Wylie DO DO ms3 Tayla Livingstonj6 Paul Cresw, RN RN bm8 Corrections: (The following items were deleted from the chart) 21:23 21:23 Reassessment: see triage assessment bm8 bm8
--- NOTE | 2025-05-26 22:15 | RAD REPORT ---
Procedure: Chest Single View HISTORY: Chest pain COMPARISON: 2019 FINDINGS: The lungs appear clear of acute infiltrate. No significant pleural effusion noted. The heart is normal size. IMPRESSION: No acute abnormality is displayed.
[2025-05-27 05:48] VITALS: TEMP 98.5; O2SAT 99
[2025-05-27 05:52] VITALS: BP 136/89
== END 2025-05-26 22:16 | disposition home or self-care (01) ==
LOC: ER 20:15
DX: R51.9 Headache, unspecified (principal); M54.50 Low back pain, unspecified; W18.30XA Fall on same level, unspecified, initial encounter
CPT/HCPCS: 70450; 71045; 72125; 72131; 99284